=== PATIENT | male | born 1955 | race Caucasian/White ===

== ENCOUNTER 2020-11-01 11:23 | Outpatient (REF) | payer OTHER, SELFPAY ==
[2020-11-01 14:47] LABS: Prostate Specific Antigen 0.99 ng/mL (<0.05-4.0)
== END 2020-11-01 11:24 | disposition home or self-care (01) ==
LOC: HO.WFDLDS 11:23
PROVIDERS: PCP Family Medicine; Visit Provider Urology
DX: N40.1 Benign prostatic hyperplasia with lower urinary tract symptoms (principal); Z12.5 Encounter for screening for malignant neoplasm of prostate
CPT/HCPCS: 36415; 84153

== ENCOUNTER 2020-11-10 07:06 | Outpatient (REF) | payer OTHER, SELFPAY ==
[2020-11-10 12:51] LABS: Alanine Aminotransferase 20 U/L (0-40); Albumin Level 4.4 g/dL (3.5-5.0); Alkaline Phosphatase 59 U/L (39-117); Anion Gap 12 (12-20); Aspartate Amino Transferase 16 U/L (5-37); Blood Urea Nitrogen 15 mg/dL (9-16); Calcium 8.7 mg/dL (8.4-10.2); Carbon Dioxide 29 mmol/L (22-29); Chloride 104 mmol/L (96-108); Cholesterol 141 mg/dL; Estimated Glomerular Filt Rate > 60; Glucose Fasting 151 mg/dL (60-99); HDL Cholesterol 50 mg/dL; LDL Cholesterol Calculated 75 mg/dl; Potassium 4.6 mmol/l (3.3-5.1); Sodium 140 mmol/L (135-145); Total Protein 6.6 g/dL (6.5-8.0); Triglycerides 81 mg/dL
[2020-11-10 13:11] LABS: TSH reflex Free T4 2.79 mIU/mL (0.32-4.0)
[2020-11-10 13:12] LABS: Creatinine Urine 121.62 mg/dL; Microalbumin Urine < 5.0 mg/L
[2020-11-14 15:22] LABS: Testosterone, Total 672 ng/dL (250-1100)
== END 2020-11-10 07:07 | disposition home or self-care (01) ==
LOC: HO.WFDLDS 07:06
PROVIDERS: Visit Provider Family Medicine
DX: Z00.00 Encounter for general adult medical examination without abnormal findings (principal); E11.9 Type 2 diabetes mellitus without complications; I10 Essential (primary) hypertension
CPT/HCPCS: 36415; 80053; 80061; 82043; 84403; 84443

== ENCOUNTER → 2020-12-15 14:08 | Outpatient (BNVA) | payer OTHER, SELFPAY | PROVIDERS: PCP Family Medicine; Visit Provider Nurse Practitioner Family ==

== ENCOUNTER 2021-02-03 07:38 | Day surgery (SDC) | payer OTHER, SELFPAY ==
[2021-01-31 14:15] VITALS: BMI 29.0
[2021-02-03 07:44] VITALS: BP 153/80; PULSE 72; RESP 16; TEMP 36.2; O2SAT 97
[2021-02-03] MEDS: Lactated Ringers 1,000 ML 50 ML IV (08:03)
[2021-02-03 08:07] LABS: Glucose, Whole Blood 131 mg/dL (60-115)
--- NOTE | 2021-02-03 08:22 | HO.ANESPROP2 ---
[facility] Active Problems Active Problems: All Active Problems (Updated 01/31/21 @ 14:13 by Freida Bustillos) Diabetes type 2, controlled (Acute) Essential (primary) hypertension (Acute) Annual physical exam (Acute) Screening for prostate cancer (Acute) Screening for colon cancer (Acute) Difficulty sleeping (Acute) Past Medical History Medical History Diabetes Elevated cholesterol History of benign prostatic hyperplasia HTN (hypertension) Family History Family History Father CVD (cardiovascular disease) Cancer of prostate Mother Diabetes Brother No problems noted. Brother No problems noted. Sister No problems noted. Son No problems noted. Son No problems noted. Maternal Grandmother Diabetes Surgical History Surgical History H/O colonoscopy History of appendectomy History of open reduction and internal fixation (ORIF) procedure Social History Social History Household Members: Spouse Are you a primary rn care manager to a significant other at home: No Do you presently have visiting nurse or other home services: No Alcohol intake: current Alcohol intake frequency: holidays/special occasions only Smoking Status: Never smoker Advance Directives Information Provided: No Meds Allergies Allergy/AdvReac Type Severity Reaction Status Date / Time codeine AdvReac Intermediate Vomitting Verified 01/31/21 14:13 Active Medications: Current Medications Generic Name Dose Route Start Last Admin Trade Name Freq PRN Reason Stop Dose Admin Lactated Ringer's 1,000 mls @ 50 mls/hr 02/02/21 07:30 02/03/21 08:03 Lr IV 50 mls/hr .Q20H INDER Administration Home Medications Medication Instructions Recorded Confirmed Last Taken Type epinephrine 0.3 mg/0.3 mL 0.3 mg IM ONCE PRN 08/02/20 01/31/21 Unknown History injection, auto-injector glipizide 2.5 mg tablet, extended 2.5 mg PO DAILY 08/02/20 01/31/21 Unknown History release 24 hr ibuprofen 800 mg tablet 800 mg PO Q8H PRN 08/02/20 01/31/21 Unknown History lancets 28 gauge #100 ea 08/02/20 Unknown History losartan 25 mg tablet 25 mg PO DAILY 08/02/20 01/31/21 Unknown History pravastatin 20 mg tablet 20 mg PO DAILY 08/02/20 01/31/21 Unknown History valacyclovir 500 mg tablet 500 mg PO DAILY 08/02/20 Unknown History Exam Exam Date and Time: February 03, [id number] Height,Weight and Vital Signs: Height 5 ft 7 in Weight 83.915 kg Last Vital Signs Temp 97.2 F 02/03/21 07:44 Pulse 72 02/03/21 07:44 Resp 16 02/03/21 07:44 BP 153/80 H 02/03/21 07:44 Pulse Ox 97 02/03/21 07:44 Pertinent Lab Results Pertinent Lab Results: Laboratory Tests 02/03/21 07:56 POC Glucose 131 H Airway Mallampati Class: II TM Dist: >3cm Neck ROM: Full
--- NOTE | 2021-02-03 08:30 | P.OP_ITS ---
Operative Note Operative Note Date of Service: 02/03/21 Narrative: Pre-op diagnosis: Colon cancer screening Post-op diagnosis: other (Colon polyps, cecal ulcer, diverticulosis, hemorrhoids) Procedure: COLONOSCOPY TILL CECUM WITH BIOPSIES AND SNARE POLYPECTOMY Consent: Indications for the procedure and potential complications of bleeding, perforation, reaction to medications and missed diagnosis were discussed with the patient and informed consent was obtained. Instrument: Olympus PCF H 190 L variable stiffness pediatric colonoscope Monitoring: Vital signs and clinical assessment, intermittent blood pressure monitoring, continuous EKG monitoring, Pulse oximetry and Carbon Dioxide monitoring were done throughout the procedure. Colon withdrawl time was 18 minutes. Procedure: The patient was placed in the left lateral decubitis position and pre-procedure medications were administered. After a digital rectal examination of the ano-rectum, the video colonoscope was inserted into the rectum and advanced through the colon to the cecum. The colonoscope was slowly withdrawn in a retrograde panoramic fashion and the colon mucosa was carefully examined including a retroflexed view of the rectum. Findings and interventions are described below. Procedure Difficulty: Without difficulty Findings: Terminal Ileum: Not evaluated Cecum: A 3-4 mm diminutive appearing polyp at the appendical orifice removed with the cold biopsy. A 1.5 to 2 cm chronic appearing ulcer in the cecum opposite the ileocecal valve which was biopsied Ascending Colon: Normal Transverse Colon: Normal Descending Colon: Moderate diverticulosis Sigmoid Colon: A 10-12 mm sessile polyp removed with a cold snare. Moderate diverticulosis Rectum: Normal Ano-rectum: Small internal hemorrhoids Colon preparation: Excellent Impression and Post Procedure Diagnosis: Colonoscopy Findings: Two small to medium sized polyps removed A 1.5 to 2 cm chronic appearing ulcer in the cecum opposite the ileocecal valve which was biopsied - likely related to ibuprofen use. Moderate diverticulosis seen in the left colon Small hemorrhoids on retroflexed exam. Plan: Await pathology results Patient has an appointment on 02/28/21 in the GI Clinic with Deanna Alonzo FNP-BC. Repeat Colonoscopy interval based on path results - in 3-5 years if polyps are adenomatous and 10 years if polyps are hyperplastic. Above findings were reviewed with the patient and [colon polyps] and [diverticulosis] handouts were given in the discharge area Surgeon: Tanna Meneses MD Anesthesia: MAC (Zbigniew James CRNA) Lead Quality Technician: Jorge L Timmons Estimated blood loss (mL): 0 Pathology: other (A cecal polyp, B. Cecal ulcer, C. SC polyp x 1) Condition: stable Disposition: PACU
--- NOTE | 2021-02-03 08:30 | MHC.SHP ---
Pre-Procedural Eval Section A The patient is an INPATIENT: No The History & Physical has been completed within 30 days and I have reviewed it.: No Section B Chief Complaint: Screening Details of Present Illness: Colon cancer screening Relevant Family History (Specify if Yes): No Relevant Social History: None Present Medications: see Short Stay Collaborative assessment Medical History: Significant History (DM, Htn) History of Previous Operations: Relevant previous surgery/procedure and date(s) (H/O colonoscopy History of appendectomy History of open reduction and internal fixation (ORIF) procedure) Allergies: Allergies Allergy/AdvReac Type Severity Reaction Status Date / Time codeine AdvReac Intermediate Vomitting Verified 01/31/21 14:13 Review of Systems Sugical H&P ROS: Negative: Constitution, Cardiovascular, Respiratory and Gastrointestinal Exam Surgical H&P Exam: Normal: Heart, Normal: Lungs, Normal: Extremities and Normal: Abdomen Plan Diagnosis/Plan: Unchanged I have reviewed the history and physical and performed a pertinent physical examination on my patient. No changes have occurred unless specified.
[2021-02-03 09:23] VITALS: BP 120/63; PULSE 66; RESP 16; TEMP 36.1; O2SAT 97
[2021-02-03 09:38] VITALS: BP 136/81; PULSE 65; RESP 18; TEMP 36.2; O2SAT 98
== END 2021-02-03 10:50 | disposition home or self-care (01) ==
PROVIDERS: PCP Family Medicine; Visit Provider Internal Medicine Gastroenterology
PROC: 0DJD8ZZ Inspection of Lower Intestinal Tract, Via Natural or Artificial Opening Endoscopic (ICD-10-PCS; CPT 45378; principal; 2021-02-03 08:30)
DX: Z12.11 Encounter for screening for malignant neoplasm of colon (principal); D12.5 Benign neoplasm of sigmoid colon; K63.5 Polyp of colon; K63.3 Ulcer of intestine; K57.30 Diverticulosis of large intestine without perforation or abscess without bleeding; K64.8 Other hemorrhoids; I10 Essential (primary) hypertension; E11.9 Type 2 diabetes mellitus without complications; Z79.84 Long term (current) use of oral hypoglycemic drugs; Z79.899 Other long term (current) drug therapy; Z79.1 Long term (current) use of non-steroidal anti-inflammatories (NSAID)
CPT/HCPCS: 45385; 45380; 82947; 88305

== ENCOUNTER → 2021-02-28 13:32 | Outpatient (BNVA) | payer OTHER, SELFPAY | PROVIDERS: PCP Family Medicine; Visit Provider Nurse Practitioner Family ==

== ENCOUNTER 2021-08-21 18:02 | Outpatient (REF) | payer OTHER, SELFPAY ==
[2021-08-21 18:49] LABS: Influenza A PCR NEGATIVE (Negative); Influenza B PCR NEGATIVE (Negative); Resp Syncy Virus RNA Qual PCR NEGATIVE (Negative); SARS COV2 PCR INHOUSE NEGATIVE (Negative)
== END 2021-08-21 18:03 | disposition home or self-care (01) ==
LOC: HO.LNP 18:02
PROVIDERS: Visit Provider Hospitalist
DX: R59.1 Generalized enlarged lymph nodes (principal); Z20.822 Contact with and (suspected) exposure to COVID-19
CPT/HCPCS: 0241U

== ENCOUNTER 2021-08-22 12:18 | Outpatient (REF) | payer OTHER, SELFPAY ==
[2021-08-22 14:08] LABS: MANUAL DIFF FLAG NO
[2021-08-22 14:19] LABS: Basophils Percent Auto 0.3 % (0-2); Eosinophils Absolute Auto 0.2 X10*3/uL (0.0-0.4); Eosinophils Percent Auto 2.5 % (0-4); Hematocrit 41.6 % (42.0-52.0); Hemoglobin 14.4 g/dl (14.0-18.0); Imm Gran Abs Auto 0.01 X10*3/uL (0.00-0.03); Imm Gran Pct Auto 0.2 % (0.0-0.4); Lymphocytes Percent Auto 34.3 % (20-40); Mean Corpuscular HGB Conc 34.6 g/dl (31.0-36.0); Mean Corpuscular Hemoglobin 31.9 pg (27.0-33.0); Mean Platelet Volume 10.8 fL (9.4-12.4); Monocytes Absolute Auto 0.5 X10*3/uL (0.1-1.2); Monocytes Percent Auto 7.6 % (2-11); Neutrophils Absolute Auto 3.3 x10*3/uL (2.0-8.3); Neutrophils Percent Auto 55.1 % (45-73); Platelet Count 190 X10*3/uL (160-400); Red Blood Count 4.52 X10*6/uL (4.60-5.80); Red Cell Distribution Width 12.2 % (11.0-16.0)
[2021-08-22 15:03] LABS: Erythrocyte Sedimentation Rate 7 MM/HR (0-15)
[2021-08-22 15:17] LABS: Alanine Aminotransferase 24 U/L (0-40); Albumin Level 4.3 g/dL (3.5-5.0); Alkaline Phosphatase 58 U/L (39-117); Anion Gap 9 (12-20); Aspartate Amino Transferase 17 U/L (5-37); Blood Urea Nitrogen 19 mg/dL (9-16); Calcium 8.8 mg/dL (8.4-10.2); Carbon Dioxide 28 mmol/L (22-29); Chloride 107 mmol/L (96-108); Estimated Glomerular Filt Rate > 60; Glucose Random 151 mg/dL (60-115); Potassium 4.3 mmol/L (3.3-5.1); Sodium 140 mmol/L (135-145); Total Protein 6.6 g/dL (6.5-8.0)
[2021-08-24 13:37] LABS: CRP High Sensitivity 2.1 mg/L
== END 2021-08-22 12:19 | disposition home or self-care (01) ==
LOC: HO.WFDLDS 12:18
PROVIDERS: Visit Provider Family Medicine
DX: Z00.00 Encounter for general adult medical examination without abnormal findings (principal); R59.1 Generalized enlarged lymph nodes
CPT/HCPCS: 36415; 80053; 85025; 85652; 86141

== ENCOUNTER 2021-09-04 10:17 | Outpatient (REF) | payer OTHER, SELFPAY ==
[2021-09-04 14:03] LABS: Basophils Percent Auto 0.4 % (0-2); Eosinophils Absolute Auto 0.1 X10*3/uL (0.0-0.4); Eosinophils Percent Auto 1.7 % (0-4); Hematocrit 44.4 % (42.0-52.0); Hemoglobin 15.1 g/dl (14.0-18.0); Imm Gran Abs Auto 0.01 X10*3/uL (0.00-0.03); Imm Gran Pct Auto 0.2 % (0.0-0.4); Lymphocytes Percent Auto 36.7 % (20-40); MANUAL DIFF FLAG NO; Mean Corpuscular Hemoglobin 31.1 pg (27.0-33.0); Mean Corpuscular Volume 91.5 fL (80.0-98.0); Monocytes Absolute Auto 0.5 X10*3/uL (0.1-1.2); Monocytes Percent Auto 9.5 % (2-11); Neutrophils Absolute Auto 2.8 x10*3/uL (2.0-8.3); Neutrophils Percent Auto 51.5 % (45-73); Platelet Count 195 X10*3/uL (160-400); Red Blood Count 4.85 X10*6/uL (4.60-5.80); Red Cell Distribution Width 12.2 % (11.0-16.0); White Blood Count 5.5 X10*3/uL (4.8-10.8)
== END 2021-09-04 10:18 | disposition home or self-care (01) ==
LOC: HO.WFDLDS 10:17
PROVIDERS: Visit Provider Family Medicine
DX: Z00.00 Encounter for general adult medical examination without abnormal findings (principal); R59.1 Generalized enlarged lymph nodes
CPT/HCPCS: 36415; 85025

== ENCOUNTER 2021-11-10 07:16 | Outpatient (REF) | payer OTHER, SELFPAY ==
[2021-11-10 10:54] LABS: MANUAL DIFF FLAG NO
[2021-11-10 10:55] LABS: Basophils Percent Auto 0.4 % (0-2); Eosinophils Absolute Auto 0.1 X10*3/uL (0.0-0.4); Eosinophils Percent Auto 1.5 % (0-4); Hematocrit 40.8 % (42.0-52.0); Imm Gran Abs Auto 0.01 X10*3/uL (0.00-0.03); Imm Gran Pct Auto 0.2 % (0.0-0.4); Lymphocytes Absolute Auto 1.4 X10*3/uL (1.2-4.9); Lymphocytes Percent Auto 30.2 % (20-40); Mean Corpuscular HGB Conc 34.3 g/dl (31.0-36.0); Mean Corpuscular Hemoglobin 31.7 pg (27.0-33.0); Mean Corpuscular Volume 92.5 fL (80.0-98.0); Mean Platelet Volume 11.1 fL (9.4-12.4); Monocytes Absolute Auto 0.4 X10*3/uL (0.1-1.2); Neutrophils Absolute Auto 2.8 x10*3/uL (2.0-8.3); Neutrophils Percent Auto 59.7 % (45-73); Platelet Count 158 X10*3/uL (160-400); Red Blood Count 4.41 X10*6/uL (4.60-5.80); Red Cell Distribution Width 12.3 % (11.0-16.0); White Blood Count 4.6 X10*3/uL (4.8-10.8)
[2021-11-10 11:10] LABS: Alanine Aminotransferase 20 U/L (0-40); Albumin Level 4.1 g/dL (3.5-5.0); Alkaline Phosphatase 51 U/L (39-117); Anion Gap 8 (12-20); Aspartate Amino Transferase 16 U/L (5-37); Bilirubin Total 1.7 mg/dL (0.0-1.0); Blood Urea Nitrogen 12 mg/dL (9-16); Carbon Dioxide 30 mmol/L (22-29); Chloride 107 mmol/L (96-108); Cholesterol 145 mg/dL; Estimated Glomerular Filt Rate > 60; Glucose Fasting 131 mg/dL (60-99); HDL Cholesterol 48 mg/dL; LDL Cholesterol Calculated 85 mg/dl; Potassium 4.3 mmol/L (3.3-5.1); Sodium 141 mmol/L (135-145); Total Protein 6.4 g/dL (6.5-8.0); Triglycerides 62 mg/dL
[2021-11-10 11:15] LABS: Appearance Urine TURBID; Color Urine YELLOW; Glucose Urine UA NEG (NEG); Leukocyte Esterase Urine NEG (NEG); Nitrite Urine NEG (NEG); Specific Gravity - Urine >= 1.030 (1.005-1.025); Urine Blood NEG (NEG); Urine Ketones NEG (NEG); Urine Protein NEG (NEG-TRACE)
[2021-11-10 11:34] LABS: Creatinine Urine 217.09 mg/dL
[2021-11-10 12:35] LABS: Estimated Average Glucose 166 mg/dL; Hemoglobin A1c % 7.4 %
== END 2021-11-10 07:17 | disposition home or self-care (01) ==
LOC: HO.WFDLDS 07:16
PROVIDERS: Hospitalist; Visit Provider Family Medicine
DX: Z00.00 Encounter for general adult medical examination without abnormal findings (principal); E11.9 Type 2 diabetes mellitus without complications; I10 Essential (primary) hypertension
CPT/HCPCS: 36415; 80053; 80061; 81003; 82043; 83036; 84443; 85025

== ENCOUNTER 2021-11-30 07:13 | Outpatient (REF) | payer OTHER, SELFPAY ==
[2021-11-30 10:53] LABS: MANUAL DIFF FLAG NO
[2021-11-30 11:02] LABS: Basophils Percent Auto 0.2 % (0-2); Eosinophils Absolute Auto 0.1 X10*3/uL (0.0-0.4); Hematocrit 44.2 % (42.0-52.0); Hemoglobin 15.2 g/dl (14.0-18.0); Imm Gran Abs Auto 0.01 X10*3/uL (0.00-0.03); Imm Gran Pct Auto 0.2 % (0.0-0.4); Immature Retic Fraction 6.2 % (2.3-13.4); Lymphocytes Absolute Auto 1.7 X10*3/uL (1.2-4.9); Lymphocytes Percent Auto 33.4 % (20-40); Mean Corpuscular HGB Conc 34.4 g/dl (31.0-36.0); Mean Corpuscular Volume 93.1 fL (80.0-98.0); Monocytes Absolute Auto 0.5 X10*3/uL (0.1-1.2); Monocytes Percent Auto 10.2 % (2-11); Neutrophils Absolute Auto 2.8 x10*3/uL (2.0-8.3); Platelet Count 201 X10*3/uL (160-400); Red Blood Count 4.75 X10*6/uL (4.60-5.80); Red Cell Distribution Width 12.6 % (11.0-16.0); Retic HGB Equivalent 34.4 pg (30.0-35.0); Reticulocyte Percent 1.1 % (0.5-1.8); White Blood Count 5.1 X10*3/uL (4.8-10.8)
[2021-11-30 11:13] LABS: Alanine Aminotransferase 18 U/L (0-40); Albumin Level 4.2 g/dL (3.5-5.0); Alkaline Phosphatase 55 U/L (39-117); Anion Gap 10 (12-20); Aspartate Amino Transferase 15 U/L (5-37); Bilirubin Total 1.7 mg/dL (0.0-1.0); Blood Urea Nitrogen 13 mg/dL (9-16); Calcium 9.4 mg/dL (8.4-10.2); Carbon Dioxide 29 mmol/L (22-29); Chloride 104 mmol/L (96-108); Estimated Glomerular Filt Rate > 60; Glucose Random 143 mg/dL (60-115); Iron 116 mcg/dL (45-160); Potassium 4.6 mmol/L (3.3-5.1); Sodium 138 mmol/L (135-145); Total Protein 6.7 g/dL (6.5-8.0)
[2021-11-30 11:26] LABS: Percent Iron Saturation 30 % (15-50); Total Iron Binding Capacity 387 mcg/dL (228-428); Unsaturated Iron Binding 271 ug/dL
[2021-11-30 11:33] LABS: Ferritin 98 ng/mL (20-250)
[2021-11-30 12:13] LABS: Erythrocyte Sedimentation Rate 5 MM/HR (0-15)
[2021-12-02 13:32] LABS: CRP High Sensitivity 1.6 mg/L
== END 2021-11-30 07:14 | disposition home or self-care (01) ==
LOC: HO.WFDLDS 07:13
PROVIDERS: Visit Provider Family Medicine
DX: Z00.00 Encounter for general adult medical examination without abnormal findings (principal); D64.9 Anemia, unspecified; M25.561 Pain in right knee
CPT/HCPCS: 36415; 80053; 82728; 83540; 85025; 85045; 85652; 86141

== ENCOUNTER 2022-04-10 08:39 | Outpatient (REF) | payer OTHER, SELFPAY ==
--- NOTE | ~2022-04-10 | XR_ITS ---
EXAMINATION: XR HAND, LEFT CLINICAL INFORMATION: Pain and swelling; history of arthritis. COMPARISON: None TECHNIQUE: PA, lateral, and oblique views of the left hand. FINDINGS: There is mild bony demineralization. There is mild to moderate osteoarthritic change of the interphalangeal joint of the thumb, and of the second and third distal interphalangeal joints. There is mild to moderate osteoarthritic change of the first through third metacarpophalangeal joints, with peripheral osteophyte formation. There is mild osteoarthritic change of the first carpometacarpal joint. The proximal and distal carpal rows are intact. A small accessory ossicle is seen adjacent to the radial styloid. The ulnar styloid is intact. No focal bone erosion or periosteal thickening is seen. There is no focal soft tissue swelling. There are 2 adjacent approximately 0.5-1 mm linear foreign bodies seen in the medial soft tissues of the thumb, adjacent to the interphalangeal joint. XR/XR hand LT min 3V IMPRESSION: 1. There are osteoarthritic changes of the left hand and wrist, as detailed. 2. No fracture or dislocation is seen. 3. No focal bone erosion or periosteal thickening is noted. 4. There are tiny radiopaque foreign bodies in the soft tissues of the thumb, for which clinical correlation is recommended.
[2022-04-10 11:42] LABS: MANUAL DIFF FLAG NO
[2022-04-10 12:03] LABS: Basophils Percent Auto 0.4 % (0-2); Eosinophils Absolute Auto 0.1 X10*3/uL (0.0-0.4); Eosinophils Percent Auto 1.3 % (0-4); Hematocrit 43.5 % (42.0-52.0); Hemoglobin 14.4 g/dl (14.0-18.0); Lymphocytes Absolute Auto 1.4 X10*3/uL (1.2-4.9); Mean Corpuscular HGB Conc 33.1 g/dl (31.0-36.0); Mean Corpuscular Volume 93.5 fL (80.0-98.0); Monocytes Absolute Auto 0.5 X10*3/uL (0.1-1.2); Monocytes Percent Auto 8.6 % (2-11); Neutrophils Absolute Auto 3.3 x10*3/uL (2.0-8.3); Neutrophils Percent Auto 62.7 % (45-73); Platelet Count 162 X10*3/uL (160-400); Red Blood Count 4.65 X10*6/uL (4.60-5.80); Red Cell Distribution Width 12.4 % (11.0-16.0); White Blood Count 5.2 X10*3/uL (4.8-10.8)
[2022-04-10 12:34] LABS: Anion Gap 10 (12-20); Blood Urea Nitrogen 18 mg/dL (9-16); C Reactive Protein 0.57 mg/dL (< or = 0.50); Calcium 9.1 mg/dL (8.4-10.2); Carbon Dioxide 28 mmol/L (22-29); Chloride 109 mmol/L (96-108); Estimated Glomerular Filt Rate > 60; Glucose Random 160 mg/dL (60-115); Potassium 4.8 mmol/L (3.3-5.1); Sodium 142 mmol/L (135-145)
[2022-04-10 14:58] LABS: Erythrocyte Sedimentation Rate 6 MM/HR (0-15)
== END 2022-04-10 08:40 | disposition home or self-care (01) ==
LOC: HO.HMGCLDS 08:39
PROVIDERS: PCP Family Medicine; Visit Provider Nurse Practitioner Family
DX: M79.89 Other specified soft tissue disorders (principal)
CPT/HCPCS: 36415; 73130; 80048; 85025; 85652; 86140

== ENCOUNTER 2022-05-03 07:08 | Outpatient (REF) | payer OTHER, SELFPAY ==
[2022-05-03 11:43] LABS: Prostate Specific Antigen 1.03 ng/mL (<0.05-4.0)
== END 2022-05-03 07:09 | disposition home or self-care (01) ==
LOC: HO.WFDLDS 07:08
PROVIDERS: Visit Provider Physician Assistant Medical
DX: Z12.5 Encounter for screening for malignant neoplasm of prostate (principal); N40.1 Benign prostatic hyperplasia with lower urinary tract symptoms
CPT/HCPCS: 36415; 84153

== ENCOUNTER 2022-11-30 08:22 | Outpatient (REF) | payer OTHER, SELFPAY ==
[2022-11-30 11:43] LABS: MANUAL DIFF FLAG NO
[2022-11-30 11:46] LABS: Appearance Urine Clear; Color Urine Dark Yellow; Glucose Urine UA Negative (Negative); Leukocyte Esterase Urine Trace (Negative); Nitrite Urine Negative (Negative); PH 5.5 (5.0-9.0); Specific Gravity - Urine 1.025 (1.005-1.025); UMIC TRIGGER UA YES; Urine Blood Negative (Negative); Urine Ketones Trace mg/dL (Negative); Urine Protein Negative (Neg-Trace)
[2022-11-30 11:53] LABS: Bacteria Urine None Seen (None Seen); Hyaline Casts Urine 0-2 /LPF (0-2); RBC Urine 0-2 /HPF (0-2); Squamous Epithelial Cell Urine 0-2 /HPF (0-2); WBC Urine 0-5 /HPF (0-5)
[2022-11-30 11:59] LABS: Basophils Percent Auto 0.7 % (0-2); Eosinophils Absolute Auto 0.1 X10*3/uL (0.0-0.4); Hematocrit 44.7 % (42.0-52.0); Hemoglobin 15.3 g/dl (14.0-18.0); Imm Gran Abs Auto 0.01 X10*3/uL (0.00-0.03); Imm Gran Pct Auto 0.2 % (0.0-0.4); Lymphocytes Absolute Auto 1.8 X10*3/uL (1.2-4.9); Lymphocytes Percent Auto 39.1 % (20-40); Mean Corpuscular HGB Conc 34.2 g/dl (31.0-36.0); Mean Corpuscular Hemoglobin 31.8 pg (27.0-33.0); Mean Corpuscular Volume 92.9 fL (80.0-98.0); Mean Platelet Volume 11.1 fL (9.4-12.4); Monocytes Absolute Auto 0.4 X10*3/uL (0.1-1.2); Monocytes Percent Auto 8.1 % (2-11); Neutrophils Absolute Auto 2.2 x10*3/uL (2.0-8.3); Neutrophils Percent Auto 49.9 % (45-73); Platelet Count 201 X10*3/uL (160-400); Red Blood Count 4.81 X10*6/uL (4.60-5.80); Red Cell Distribution Width 12.1 % (11.0-16.0); White Blood Count 4.5 X10*3/uL (4.8-10.8)
[2022-11-30 12:39] LABS: Alanine Aminotransferase 18 U/L (0-40); Albumin Level 4.2 g/dL (3.5-5.0); Alkaline Phosphatase 54 U/L (39-117); Anion Gap 14 (12-20); Aspartate Amino Transferase 13 U/L (5-37); Bilirubin Total 1.3 mg/dL (0.0-1.0); Blood Urea Nitrogen 20 mg/dL (9-16); Calcium 9.3 mg/dL (8.4-10.2); Carbon Dioxide 27 mmol/L (22-29); Chloride 104 mmol/L (96-108); Cholesterol 161 mg/dL; Creatinine Urine 231.85 mg/dL; Estimated Glomerular Filt Rate > 60; Glucose Fasting 155 mg/dL (60-99); HDL Cholesterol 48 mg/dL; LDL Cholesterol Calculated 95 mg/dl; Microalbum/Creatinine Ratio Ur 5.6 ug/mg cr; Potassium 4.8 mmol/L (3.3-5.1); Sodium 140 mmol/L (135-145); TSH reflex Free T4 2.62 uIU/mL (0.32-4.0); Total Protein 6.6 g/dL (6.5-8.0); Triglycerides 92 mg/dL
== END 2022-11-30 08:23 | disposition home or self-care (01) ==
LOC: HO.WFDLDS 08:22
PROVIDERS: Visit Provider Family Medicine
DX: Z00.00 Encounter for general adult medical examination without abnormal findings (principal); I10 Essential (primary) hypertension
CPT/HCPCS: 36415; 80053; 80061; 81001; 82043; 84443; 85025

== ENCOUNTER 2022-12-14 11:07 | Outpatient (REF) | payer OTHER, SELFPAY ==
--- NOTE | ~2022-12-14 | XR_ITS ---
EXAMINATION: XR KNEES, STANDING AP BILATERAL XR KNEE, RIGHT CLINICAL INFORMATION: Knee pain COMPARISON: Outside right knee MRI 12/04/2022 ([facility]). TECHNIQUE: Bilateral standing AP view of the knees is performed. The right knee is also imaged in lateral and axial patella views. FINDINGS: Right: There is tricompartment osteoarthritis, greatest medial knee joint compartment with joint narrowing and mild subchondral sclerosis. No destructive process or erosive changes. There is small to moderate suprapatellar effusion. Spurring present from posterior superior lateral patella. No patellar lateralization or tilting. Left: No definite knee joint compartment narrowing. No or erosive change or chondrocalcinosis. No destructive process. XR/XR knee standing BI IMPRESSION: Right: Tricompartment osteoarthritis, greatest medial compartment. Small to moderate suprapatellar effusion. Left: No definite knee joint compartment narrowing.
--- NOTE | ~2022-12-14 | XR_ITS ---
EXAMINATION: XR KNEES, STANDING AP BILATERAL XR KNEE, RIGHT CLINICAL INFORMATION: Knee pain COMPARISON: Outside right knee MRI 12/04/2022 ([facility]). TECHNIQUE: Bilateral standing AP view of the knees is performed. The right knee is also imaged in lateral and axial patella views. FINDINGS: Right: There is tricompartment osteoarthritis, greatest medial knee joint compartment with joint narrowing and mild subchondral sclerosis. No destructive process or erosive changes. There is small to moderate suprapatellar effusion. Spurring present from posterior superior lateral patella. No patellar lateralization or tilting. Left: No definite knee joint compartment narrowing. No or erosive change or chondrocalcinosis. No destructive process. XR/XR knee RT 2V IMPRESSION: Right: Tricompartment osteoarthritis, greatest medial compartment. Small to moderate suprapatellar effusion. Left: No definite knee joint compartment narrowing.
== END 2022-12-14 11:08 | disposition home or self-care (01) ==
LOC: HO.HOSX 11:07
PROVIDERS: PCP Family Medicine; Visit Provider Orthopaedic Surgery
DX: M17.11 Unilateral primary osteoarthritis, right knee (principal); E11.9 Type 2 diabetes mellitus without complications
CPT/HCPCS: 20610; 73560; 73565; 99202; J1100

== ENCOUNTER 2023-01-09 09:00 | Outpatient (RCR) | payer OTHER, SELFPAY ==
--- NOTE | 2022-12-19 11:30 | MHC.PT.EP ---
[facility] [place] Office [place] Office [place] Office [address] Belle Gonzalez [address] [phone] F: [phone] F: [phone] F: [phone] F: [phone] Physical Therapy Plan of Care Date of Evaluation: Date of Surgery: NA Diagnosis: KNEE EFFUSION R Assessment: Pt IS 67 YO M REFERRED TO PT FROM DR MOE S/P R KNEE INJURY AT WORK ON 11/26/22 (TWIST OF KNEE WHILE TRYING TO MOVE HEAVY WHEEL) WITH IMMEDIATE PAIN. Pt WITH HX OF R KNEE MENISCECTOMY ABOUT 12 YRS AGO AND R TIB/FIB FX (REPORTS NO SURGERY, MANIPULATION AND CASTING). REPORTS NO SIGIF PT WITH THESE. REPORTS RELIEF FROM RECENT CORTISONE INJECTION FROM DR MOE. PRESENTS WITH LIMITED R KNEE ROM (AND R ANKLE ROM) AND DECREASED R LE STRENGTH WITH PAIN REPORTED AND LIMITED ADLS (TROUBLE PUTTING SOCKS ON CLIMBING STAIRS). 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 INCREASED AWARENESS KNEE CARE 2. INCREASED R KNEE FLEX 10 DEGREES 3. I KNEE TAPING IF INDICATED 4. IMPROVED STAIR NEGOTIATION AND TRANSF OUT OF TRUCK (Pt TO REPORT LESS STIFFNESS/PAIN) [facility]ci Goals: 1. I HEP WITH DC EX PLAN 2. RTW 3. IMPROVED LEFI 4. DECREASED R KNEE PAIN AT LEAST 50% WITH ADLS Treatment Plan: Modalities to reduce pain, spasms and effusion. Manual therapy to restore motion and function. Therapeutic exercise to improve strength and flexibility. Neuromuscular re-education for posture and balance. Therapeutic activities to return to functional activities of daily living. Electronically signed by: ARIADNA COREAS PT Please sign and return to therapist. Thank you for your referral.
--- NOTE | 2023-04-26 14:55 | MHC.PT.DC ---
[facility] [place] Office [place] Office [place] Office [address] Belle Gonzalez [address] [phone] F: [phone] F: [phone] F: [phone] F: [phone] Physical Therapy Discharge Report Diagnosis: KNEE EFFUSION R Date of Surgery: NA Date of Evaluation: 12/19/22 Date of Discharge: 04/26/23 Treatments to Date: 6 Cancellations to Date: No Shows to Date: Discharge Status: Independent with HEP Patient Elected to Stop Discharge Summary: Pt SEEN FOR INIT EVAL AND 5 VISITS. LAST SEEN ON 01/09/23. PER ASSESSMENT FROM THAT DAY HAS ONE MORE APPT ON SATURDAY THEN FU WITH ORTHO NEXT SATURDAY. AWAIT FURTHER INSTRUCTIONS FROM ORTHO Pt SAW ORTHO ON 04/05/23 AND TKR WAS RECOMMENDED. WILL DC THIS CHART AT THIS TIME Electronically signed by: ARIADNA COREAS PT Please sign and return to therapist. Thank you for your referral.
== END 2023-04-26 14:55 | disposition home or self-care (01) ==
LOC: HO.PTWFD 09:00
PROVIDERS: Visit Provider Orthopaedic Surgery
DX: M17.11 Unilateral primary osteoarthritis, right knee (principal); M25.461 Effusion, right knee
CPT/HCPCS: 97110; 97140; 97162; 97530; 97535

== ENCOUNTER → 2023-01-18 09:24 | Outpatient (BNVA) | payer OTHER, SELFPAY | PROVIDERS: PCP Family Medicine; Visit Provider Orthopaedic Surgery | DX: M17.11 Unilateral primary osteoarthritis, right knee (principal) | CPT/HCPCS: 99212 ==

== ENCOUNTER → 2023-02-22 09:23 | Outpatient (BNVA) | payer OTHER, SELFPAY | PROVIDERS: PCP Family Medicine; Visit Provider Orthopaedic Surgery | DX: M17.11 Unilateral primary osteoarthritis, right knee (principal); E11.9 Type 2 diabetes mellitus without complications | CPT/HCPCS: 20610; 99212; J1100 ==

== ENCOUNTER 2023-03-02 07:05 | Outpatient (REF) | payer OTHER, SELFPAY ==
[2023-03-02 07:14] LABS: MANUAL DIFF FLAG NO
[2023-03-02 07:27] LABS: Basophils Percent Auto 0.5 % (0-2); Eosinophils Absolute Auto 0.1 X10*3/uL (0.0-0.4); Eosinophils Percent Auto 1.7 % (0-4); Hematocrit 42.7 % (42.0-52.0); Imm Gran Abs Auto 0.01 X10*3/uL (0.00-0.03); Imm Gran Pct Auto 0.2 % (0.0-0.4); Lymphocytes Absolute Auto 1.5 X10*3/uL (1.2-4.9); Lymphocytes Percent Auto 36.8 % (20-40); Mean Corpuscular HGB Conc 35.1 g/dl (31.0-36.0); Mean Corpuscular Hemoglobin 32.3 pg (27.0-33.0); Mean Platelet Volume 10.2 fL (9.4-12.4); Monocytes Absolute Auto 0.4 X10*3/uL (0.1-1.2); Monocytes Percent Auto 9.1 % (2-11); Neutrophils Absolute Auto 2.1 x10*3/uL (2.0-8.3); Neutrophils Percent Auto 51.7 % (45-73); Platelet Count 186 X10*3/uL (160-400); Red Blood Count 4.64 X10*6/uL (4.60-5.80); Red Cell Distribution Width 12.4 % (11.0-16.0); White Blood Count 4.1 X10*3/uL (4.8-10.8)
[2023-03-02 08:04] LABS: Alanine Aminotransferase 18 U/L (0-40); Albumin Level 4.3 g/dL (3.5-5.0); Alkaline Phosphatase 52 U/L (39-117); Anion Gap 10 (12-20); Aspartate Amino Transferase 13 U/L (5-37); Bilirubin Total 1.7 mg/dL (0.0-1.0); Blood Urea Nitrogen 14 mg/dL (9-16); Calcium 9.3 mg/dL (8.4-10.2); Carbon Dioxide 29 mmol/L (22-29); Chloride 108 mmol/L (96-108); Cholesterol 201 mg/dL; Estimated Glomerular Filt Rate > 60; Glucose Fasting 160 mg/dL (60-99); HDL Cholesterol 48 mg/dL; LDL Cholesterol Calculated 127 mg/dl; Potassium 4.6 mmol/L (3.3-5.1); Sodium 142 mmol/L (135-145); Total Protein 6.6 g/dL (6.5-8.0); Triglycerides 130 mg/dL
[2023-03-02 08:21] LABS: Appearance Urine Clear; Color Urine Yellow; Glucose Urine UA 100 mg/dL (Negative); Leukocyte Esterase Urine Negative (Negative); Nitrite Urine Negative (Negative); PH 5.5 (5.0-9.0); Specific Gravity - Urine 1.025 (1.005-1.025); Urine Blood Negative (Negative); Urine Ketones Negative (Negative); Urine Protein Negative (Neg-Trace)
[2023-03-02 08:38] LABS: Prostate Specific Antigen Scr 1.04 ng/mL (<0.05-4.0); TSH reflex Free T4 1.29 uIU/mL (0.32-4.0)
[2023-03-02 08:55] LABS: Creatinine Urine 199.13 mg/dL; Microalbum/Creatinine Ratio Ur 3.5 ug/mg cr
== END 2023-03-02 07:06 | disposition home or self-care (01) ==
LOC: HO.LAB 07:05
PROVIDERS: PCP Family Medicine; Visit Provider Family Medicine
DX: Z00.00 Encounter for general adult medical examination without abnormal findings (principal); I10 Essential (primary) hypertension; Z12.5 Encounter for screening for malignant neoplasm of prostate
CPT/HCPCS: 36415; 80053; 80061; 81003; 82043; 84153; 84443; 85025

== ENCOUNTER → 2023-04-05 10:15 | Outpatient (BNVA) | payer OTHER, SELFPAY | PROVIDERS: PCP Family Medicine; Visit Provider Orthopaedic Surgery | DX: M17.11 Unilateral primary osteoarthritis, right knee (principal); E11.9 Type 2 diabetes mellitus without complications | CPT/HCPCS: 99212 ==

== ENCOUNTER 2023-05-02 08:03 | Outpatient (AMB) | payer MEDICARE, SELFPAY ==
--- NOTE | 2023-05-02 08:01 | MHC.PC.OV ---
Vital Signs 05/02/23 08:08 Height 5 ft 7 in Weight 183 lb BMI 28.7 BP 128/78 Blood Pressure Location Rt brachial Position Sitting Respiration 14 Pulse 66 Pulse Source Pulse Oximeter Temp 98.4 F Temp Source Temporal Artery Scan Pulse Oximetry (%) 98 Oxygen Delivery Method Room Air Intake Visit Reasons: f/u diabetes, hyperlipidemia and hypertension Intake Note: Patient is here to follow up with diabetic management, hyperlipidemia, and hypertension. Patient had labs drawn on 03/02/23, patient had labs drawn today prior to this appointment. A1C last completed 02/18/23 with a result of 7.4% and patient's last diabetic eye exam completed on 04/19/23. Patient's states his blood sugars are more stable at home. Upholstery Sewer Required: No Accompanied by: Spouse Allergies codeine Adverse Reaction (Intermediate, Verified 05/02/23 08:05) Vomitting Medication List - Last Reconciled 05/02/23 by John Gonzalse MD epinephrine (EpiPen 2-Mo) 0.3 mg (0.3 mL) IM Q4H PRN 30 days finasteride 5 mg PO DAILY 90 days gabapentin 600 mg PO BEDTIME 30 days glipizide ER 10 mg PO DAILY 90 days hydrochlorothiazide 12.5 mg PO QAM 30 days ibuprofen 800 mg PO Q8H PRN 30 days losartan 50 mg (2 x 25 mg) PO DAILY 90 days pravastatin 20 mg PO DAILY tamsulosin 0.4 mg PO DAILY 90 days valacyclovir 500 mg PO DAILY 90 days Tobacco use date assessed: 12/03/22 Fall risk assessment: No Falls in past year Last assessed Fall Risk: 05/02/23 Dental Screening Dental Screen Date: 05/02/23 Did you have a dental visit in the last 12 months?: Yes Did you have a dental problem in the last 6 months where you did not have access to dental care?: No Was dental information given to patient?: Patient has dentist HPI f/u diabetes, hyperlipidemia and hypertension HPI Details 67 y/o male presents to f/u diabetes, hyperlipidemia and hypertension. No recent labs to review. Recent diabetic eye exam showed no diabetic retinopathy. Blood pressure today is 128/78. He is on losartan 50mg, hydrochlorothiazide 12.5mg. Blood sugars at home have been improving. He reports he continues to get good exercise. They report poison stacia. He reports he is getting a full knee replacement [facility] Medical History Diabetes Diverticulosis Elevated cholesterol History of benign prostatic hyperplasia HTN (hypertension) Tubular adenoma Surgical History H/O colonoscopy History of appendectomy History of open reduction and internal fixation (ORIF) procedure Family History Father CVD (cardiovascular disease) Cancer of prostate Mother Diabetes Brother No problems noted. Brother No problems noted. Sister No problems noted. Son No problems noted. Son No problems noted. 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 1. Little interest or pleasure in doing things: several days 2. Feeling down, depressed, or hopeless: several days 3. Trouble falling or staying asleep, or sleeping too much: more than half the days 4. Feeling tired or having little energy: not at all 5. Poor appetite or overeating: not at all 6. Feeling bad about yourself - or that you are a failure or have let yourself or your family down: not at all 7. Trouble concentrating on things, such as reading the newspaper or watching television: several days 8. Moving or speaking so slowly that other people could have noticed. Or the opposite - being so fidgety or restless that you have been moving around a lot more than usual: not at all 9. Thoughts that you would be better off or of hurting yourself in some way: not at all Total score: 5 Source: Developed by Drs. Nik Hills, Janelle Dang, Danny Romo and colleagues, with an educational tiffanie from [employer]. Thrive Questionnaire Date Thrive assessed: 09/04/22 IVETT-7 AMB Questionnaire IVETT-7 Date IVETT - 7 assessed: 05/02/23 Feeling nervous, anxious, or on edge: 1 = Several days Not being able to stop or control worryin = Several days Worrying too much about different things: 2 = More than half the days Trouble relaxin = More than half the days Being so restless that it is hard to sit still: 2 = More than half the days Becoming easily annoyed or irritable: 2 = More than half the days Feeling afraid as if something awful might happen: 0 = Not at all Total IVETT-7 score (0-4 normal; 5-9 mild; 10-14 moderate; 15-21 severe): 10 Source: Developed by Drs. Nik Hills, Janelle Dang, Danny Romo and colleagues, with an educational tiffanie from [employer]. Review of Systems Const Denies chills, Denies fatigue, Denies fever(s), Denies headache(s) and Denies weakness ENT Denies dizziness and Denies headache(s) Card Denies chest pain, Denies lightheadedness, Denies dyspnea and Denies other (Palpitations) Resp Denies cough, Denies dyspnea, Denies wheezing and Denies other ( shortness of breath) Musc Denies numbness and Denies tingling Neuro Denies dizziness, Denies headache(s), Denies numbness, Denies tingling, Denies paresthesias and Denies weakness Psych Denies anxiety and Denies depression Endo Denies fatigue Aller/Immun Denies wheezing Physical exam (Primary Care) Vital Signs: Last Vital Signs Temp 98.4 F 05/02/23 08:08 Pulse 66 05/02/23 08:08 Resp 14 05/02/23 08:08 BP 128/78 05/02/23 08:08 Pulse Ox 98 05/02/23 08:08 Oxygen Delivery Method Room Air 05/02/23 08:08 BMI result Body Mass Index 28.7 Tobacco/Smoking Status: Tobacco use Status Tobacco use date assessed 12/03/22 05/02/23 08:03 Patient Tobacco Use Status Never used Tobacco 05/02/23 08:03 e-Cigarette/Vaping Use Never Used 05/02/23 08:03 PHQ-9: PHQ-9 Score PHQ-9: Total score 5 05/02/23 08:46 Thrive Assessment: Date of Thrive Assessment Date Thrive assessed 09/04/22 05/02/23 08:03 Const General: no acute distress and well developed Nutritional Appearance: well nourished Orientation/consciousness: patient oriented x3 HENMT Head: Yes normocephalic and Yes atraumatic Eyes General: appearance normal, both eyes and all related structures Pupils: Equal, round and reactive pupils present EOM: EOMs intact bilaterally Resp Effort & Inspection: normal respiratory effort Auscultation: clear to auscultation bilaterally Cardio Rate: regular rate Rhythm: regular rhythm Heart sounds: S1 normal heart sound present, S2 normal heart sound present, no gallops, no murmurs and no rubs Neuro General: patient oriented x3 and gait normal Cranial nerves: Yes Equal, round and reactive pupils present Psych Affect: normal affect Assessment and Plan Assessment & Plan (1) Diabetes type 2, controlled: Code(s): E11.9 - Type 2 diabetes mellitus without complications Plan: Last A1c was high. Goal is less than 7.0% He has been working on diet and getting regular exercise as tolerated. Blood sugars have been much better controlled at home No change to his diabetic regimen today. He will be due for an A1c again in May and can come in for a nurse visit for that Recent eye exam showed no diabetic retinopathy (2) Essential (primary) hypertension: Code(s): I10 - Essential (primary) hypertension Plan: Blood pressure is controlled. Goal is less than 140/90 Continue current medication regimen (3) Right knee pain: Code(s): M25.561 - Pain in right knee Plan: Ongoing right knee pain with osteoarthritis and recent soft tissue injury/twist He has seen Dr. Cardoso. He is now scheduled for right knee total replacement in July. Up with Ortho as recommended (4) Poison stacia: Code(s): L23.7 - Allergic contact dermatitis due to plants, except food Plan: Using a calamine spray Will give him a script for betamethasone that he can use b.i.d. (5) Elevated cholesterol: Code(s): E78.00 - Pure hypercholesterolemia, unspecified Plan: Has been working on a diet lower in saturated fats and cholesterol Exercising as tolerated He has gotten his labs drawn this morning. I will call him this afternoon with his results Medications: New betamethasone valerate 0.1% 1 appl topical BID 14 days PRN 45 grams 0RF skin irritation gabapentin 300 mg PO BEDTIME 30 days 30 caps 3RF Discontinued gabapentin Discontinued Reason: Doctor's Order 600 mg PO BEDTIME 30 days 30 tabs 0RF Coding Level of Care Code Est Pt Level 4 (24407) Diagnoses Diabetes type 2, controlled E11.9 Essential (primary) hypertension I10 Right knee pain M25.561 Poison stacia L23.7 Elevated cholesterol E78.00
[2023-05-02 08:08] VITALS: BP 128/78; PULSE 66; RESP 14; TEMP 36.9; O2SAT 98; BMI 28.7
== END 2023-05-02 09:19 | disposition home or self-care (01) ==
PROVIDERS: PCP Family Medicine; Visit Provider Family Medicine
DX: E11.9 Type 2 diabetes mellitus without complications (principal); I10 Essential (primary) hypertension; M25.561 Pain in right knee; L23.7 Allergic contact dermatitis due to plants, except food; E78.00 Pure hypercholesterolemia, unspecified
CPT/HCPCS: 99214

== ENCOUNTER 2023-05-02 08:08 | Outpatient (REF) | payer OTHER, SELFPAY ==
[2023-05-02 14:15] LABS: Alanine Aminotransferase 18 U/L (0-40); Albumin Level 4.3 g/dL (3.5-5.0); Alkaline Phosphatase 48 U/L (39-117); Anion Gap 12 (12-20); Aspartate Amino Transferase 14 U/L (5-37); Bilirubin Total 1.1 mg/dL (0.0-1.0); Blood Urea Nitrogen 15 mg/dL (9-16); Calcium 9.5 mg/dL (8.4-10.2); Carbon Dioxide 24 mmol/L (22-29); Chloride 107 mmol/L (96-108); Cholesterol 195 mg/dL; Estimated Glomerular Filt Rate > 60; Glucose Random 144 mg/dL (60-115); HDL Cholesterol 48 mg/dL; LDL Cholesterol Calculated 120 mg/dl; Potassium 4.2 mmol/L (3.3-5.1); Sodium 139 mmol/L (135-145); Triglycerides 139 mg/dL
[2023-05-04 13:29] LABS: LDL Cholesterol Direct 132 mg/dL (<100)
== END 2023-05-02 08:09 | disposition home or self-care (01) ==
LOC: HO.WFDLDS 08:08
PROVIDERS: Visit Provider Family Medicine
DX: Z00.00 Encounter for general adult medical examination without abnormal findings (principal); E78.00 Pure hypercholesterolemia, unspecified; E11.9 Type 2 diabetes mellitus without complications
CPT/HCPCS: 36415; 80053; 80061; 83721

== ENCOUNTER 2023-05-24 09:07 | Outpatient (AMB) | payer MEDICARE, SELFPAY ==
--- NOTE | 2023-05-24 09:18 | AM.OFFVISNUR ---
Intake Intake Visit Reasons: A1C Allergies codeine Adverse Reaction (Intermediate, Verified 05/02/23 08:05) Vomitting Results AMB Hemoglobin A1c AMB Hemoglobin A1c 7.2 % Last Edit by Kristine Saucedo RN on 05/24/23 09:27 Coding Diagnoses
== END 2023-05-24 09:36 | disposition home or self-care (01) ==
PROVIDERS: PCP Family Medicine; Visit Provider Family Medicine
DX: Z13.9 Encounter for screening, unspecified (principal)
CPT/HCPCS: 83036

== ENCOUNTER → 2023-07-15 09:36 | Outpatient (BNVA) | payer OTHER, SELFPAY | PROVIDERS: PCP Family Medicine; Visit Provider Orthopaedic Surgery ==

== ENCOUNTER 2023-07-19 12:57 | Outpatient (AMB) | payer OTHER, MEDICARE, SELFPAY ==
[2023-07-19 13:05] VITALS: BP 126/72; PULSE 64; RESP 13; TEMP 36.3; O2SAT 99; BMI 29.0
--- NOTE | 2023-07-19 13:05 | MHC.PC.OV ---
Vital Signs 07/19/23 13:05 Height 5 ft 7 in Weight 185 lb 2 oz BMI 29.0 BP 126/72 Blood Pressure Location Rt brachial Position Sitting Respiration 13 Pulse 64 Pulse Source Pulse Oximeter Temp 97.4 F Temp Source Temporal Artery Scan Pulse Oximetry (%) 99 Oxygen Delivery Method Room Air Intake Visit Reasons: Aug 13 Ortho/ Rt total knee Arthroplasty Egg Caser Required: No Accompanied by: Self / Same As Patient Allergies codeine Adverse Reaction (Intermediate, Verified 07/19/23 13:11) Vomitting Tobacco use date assessed: 07/19/23 Fall risk assessment: No Falls in past year Last assessed Fall Risk: 07/19/23 Dental Screening Dental Screen Date: 07/19/23 Did you have a dental visit in the last 12 months?: Yes Did you have a dental problem in the last 6 months where you did not have access to dental care?: No Was dental information given to patient?: Patient has dentist HPI Aug 13/ Ortho/ Rt total knee Arthroplasty HPI Details Patient?presents?for?preoperative?clearance?prior?to?right?total?knee?arthroplasty Procedure: ?Right?total?knee?arthroplasty Date:??July?2022 Surgeon:Dr Cardoso Anesthesia: ?General Cardiac?Hx:??None Pulmonary?Hx:??None Prior?Surgical?Complications:??None Prior?Anesthesia?Complications:??None Coag?Issues:??None History?of?hypertension?and?diabetes.??These?appear?well?controlled. Functional?[place]: ?Can?walk?2?city?blocks?without?stopping.??Can?walk?up?2?flights?of?stairs?with?groceries?without?stopping. Blood?pressure?today:??126/72 He?is?on?losartan?50?mg?daily A1c?4 days?ago 6.7%.? PFSH Medical History Diabetes Diverticulosis Elevated cholesterol History of benign prostatic hyperplasia HTN (hypertension) Tubular adenoma Surgical History H/O colonoscopy History of appendectomy History of open reduction and internal fixation (ORIF) procedure Family History Father CVD (cardiovascular disease) Cancer of prostate Mother Diabetes Brother No problems noted. Brother No problems noted. Sister No problems noted. Son No problems noted. Son No problems noted. 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 Nik Hills, Janelle Dang, Danny Romo and colleagues, with an educational tiffanie from [employer]. Review of Systems Const Denies chills, Denies fatigue, Denies fever(s), Denies headache(s) and Denies weakness ENT Denies dizziness and Denies headache(s) Card Denies chest pain, Denies lightheadedness, Denies dyspnea and Denies other (Palpitations) Resp Denies cough, Denies dyspnea, Denies wheezing and Denies other ( shortness of breath) Musc Details: Right?knee?instability?and?pain Denies numbness and Denies tingling Neuro Denies dizziness, Denies headache(s), Denies numbness, Denies tingling, Denies paresthesias and Denies weakness Psych Denies anxiety and Denies depression Endo Denies fatigue Aller/Immun Denies wheezing Physical exam (Primary Care) Vital Signs: Last Vital Signs Temp 97.4 F 07/19/23 13:05 Pulse 64 07/19/23 13:05 Resp 13 07/19/23 13:05 BP 126/72 07/19/23 13:05 Pulse Ox 99 07/19/23 13:05 Oxygen Delivery Method Room Air 07/19/23 13:05 BMI result Body Mass Index 29.0 Tobacco/Smoking Status: Tobacco use Status Tobacco use date assessed 12/03/22 05/02/23 08:03 Patient Tobacco Use Status Never used Tobacco 05/02/23 08:03 e-Cigarette/Vaping Use Never Used 05/02/23 08:03 Thrive Assessment: Date of Thrive Assessment Date Thrive assessed 09/04/22 05/02/23 08:03 Const General: no acute distress and well developed Nutritional Appearance: well nourished Orientation/consciousness: patient oriented x3 HENMT Head: Yes normocephalic and Yes atraumatic Eyes General: appearance normal, both eyes and all related structures Pupils: Equal, round and reactive pupils present EOM: EOMs intact bilaterally Resp Effort & Inspection: normal respiratory effort Auscultation: clear to auscultation bilaterally Cardio Rate: regular rate Rhythm: regular rhythm Heart sounds: S1 normal heart sound present, S2 normal heart sound present, no gallops, no murmurs and no rubs Neuro General: patient oriented x3 and gait normal Cranial nerves: Yes Equal, round and reactive pupils present Extrem Other: Right?knee?crepitus?and?clicking Psych Affect: normal affect Assessment and Plan Assessment & Plan (1) Preop cardiovascular exam: Code(s): Z01.810 - Encounter for preprocedural cardiovascular examination Plan: 67-year-old?male?presents?for?preoperative?clearance?prior?to No?history?of?cardiac?or?pulmonary?disease. Cardiopulmonary?exam?today?is?within?normal?limits No?prior surgical?or?anesthesia?complications. No?coagulopathies. Good?functional?reserve. CBC,?BMP?and?renal?function?are?within?normal?limits. EKG?07/15/2023?is?normal Low?risk?patient?for?low-intermediate?risk?procedure. no?contraindications?to?proceeding?with?proposed?procedure (2) Essential (primary) hypertension: Code(s): I10 - Essential (primary) hypertension Plan: Blood?pressure?is?well?controlled?today.??Goal?is?less?than?140/90 Continue?current?medication Continue?weight?control?and?exercise (3) Diabetes type 2, controlled: Code(s): E11.9 - Type 2 diabetes mellitus without complications Plan: A1c?6.7%?today?which?is?improved?and?at?goal?of?less?than?7.0%. Continue?current?medication?regimen. Continue?diabetic?diet?and?exercise. Coding Level of Care Code Est Pt Level 4 (29203) Diagnoses Preop cardiovascular exam Z01.810 Essential (primary) hypertension I10 Diabetes type 2, controlled E11.9
== END 2023-07-19 13:44 | disposition home or self-care (01) ==
PROVIDERS: PCP Family Medicine; Visit Provider Family Medicine
DX: Z01.810 Encounter for preprocedural cardiovascular examination (principal); I10 Essential (primary) hypertension; E11.9 Type 2 diabetes mellitus without complications
CPT/HCPCS: 99214

== ENCOUNTER 2023-08-08 09:20 | Outpatient (AMB) | payer OTHER, SELFPAY ==
--- NOTE | 2023-08-08 09:30 | A.OFFVIS_ITS ---
Intake Vital Signs 08/08/23 09:32 Height 5 ft 7 in Weight 185 lb BMI 29.0 Intake Visit Reasons: Preop RT TKA 08/13/23 NE Intake Note: Nadir a 67 year old male presents today for a preoperative right TKA, DOS 08/13/23 NE. Pain management agreement reviewed and signed. Allergies bee pollen [bee stings] Allergy (Severe, Verified 08/08/23 09:33) Anaphylaxis codeine Adverse Reaction (Intermediate, Verified 08/08/23 09:33) Vomiting HPI HPI Comments History of Present Illness Details Mr Espinoza presents to the office today for preop visit. He is scheduled for right total knee arthroplasty with Dr. Cardoso. He continues to have ongoing pain and difficulty with ambulation in the right knee, which is affecting his quality of life; therefore, he has elected to move forward with surgery. [facility] Medical History (Updated 08/08/23 @ 14:49 by [place] P[place] PA-C) BPH (benign prostatic hyperplasia) Osteoarthritis Dermatofibroma Tubular adenoma Diverticulosis History of benign prostatic hyperplasia Elevated cholesterol HTN (hypertension) Diabetes Surgical History H/O colonoscopy History of open reduction and internal fixation (ORIF) procedure History of appendectomy Family History Father CVD (cardiovascular disease) Cancer of prostate Mother Diabetes Brother No problems noted. Brother No problems noted. Sister No problems noted. Son No problems noted. Son No problems noted. 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 - [employer] Current occupational exposures/hazards: No Cognitive needs: No Hearing needs: No Vision needs: No Review of Systems Const All systems reviewed & are unremarkable except as noted in HPI and below Physical Exam Vital Signs: BMI result Body Mass Index 29.0 Const General: cooperative, healthy appearing and no acute distress Orientation/consciousness: patient oriented x3 Neck Neck: Yes normal visual inspection and Yes no lymphadenopathy Resp Effort & Inspection: normal respiratory effort and able to speak in complete sentences Cardio Peripheral pulses: Peripheral pulses 2+ throughout GI Inspection: Yes normal to inspection Palpation (GI): Soft to palpation Skin Lesions: no lesions Rashes: no rashes Neuro General: patient oriented x3 Extrem Other: Right knee skin intact no open wound or abrasion. ROM is 0-95 degrees. Calf supple, nontender. NVI. Assessment & Plan Assessment & Plan (1) Osteoarthritis of right knee: Code(s): M17.11 - Unilateral primary osteoarthritis, right knee Qualifiers: Osteoarthritis type: primary Qualified Code(s): M17.11 - Unilateral primary osteoarthritis, right knee Patient Instructions: Scribed for [place] Poon PA-C, by Judah Madera director of medical staff services, on 08/08/2023. I, [place] Poon PA-C, have personally reviewed and agree with the information entered by the scribe. Coding Level of Care Code Est Pt Level 3 (90675) Diagnoses Primary osteoarthritis of right knee M17.11 Osteoarthritis type: primary
[2023-08-08 09:32] VITALS: BMI 29.0
== END 2023-08-08 10:38 | disposition home or self-care (01) ==
PROVIDERS: PCP Family Medicine; Visit Provider Physician Assistant
DX: M17.11 Unilateral primary osteoarthritis, right knee (principal)
CPT/HCPCS: 99213

== ENCOUNTER → 2023-08-08 09:20 | Outpatient (BNVA) | payer OTHER, SELFPAY | PROVIDERS: PCP Family Medicine; Visit Provider Physician Assistant | DX: M17.11 Unilateral primary osteoarthritis, right knee (principal) | CPT/HCPCS: 99212 ==

== ENCOUNTER 2023-08-13 06:59 | Day surgery (SDC) | payer OTHER, SELFPAY ==
--- NOTE | 2023-07-15 11:45 | ECG_ITS ---
Test Reason : pre op Blood Pressure : / mmHG Vent. Rate : 067 BPM Atrial Rate : 067 BPM P-R Int : 150 ms QRS Dur : 092 ms QT Int : 410 ms P-R-T Axes : 061 -07 000 degrees QTc Int : 433 ms Normal sinus rhythm Normal ECG No previous ECGs available Referred By: Lefty Cardoso Electronically Signed By:JHONY BOYER
[2023-07-15 12:14] LABS: MANUAL DIFF FLAG NO
[2023-07-15 12:51] LABS: Basophils Percent Auto 0.7 % (0-2); Eosinophils Absolute Auto 0.1 X10*3/uL (0.0-0.4); Eosinophils Percent Auto 2.2 % (0-4); Hematocrit 44.9 % (42.0-52.0); Hemoglobin 15.5 g/dl (14.0-18.0); Imm Gran Abs Auto 0.01 X10*3/uL (0.00-0.03); Imm Gran Pct Auto 0.2 % (0.0-0.4); Lymphocytes Absolute Auto 1.8 X10*3/uL (1.2-4.9); Lymphocytes Percent Auto 40.3 % (20-40); Mean Corpuscular HGB Conc 34.5 g/dl (31.0-36.0); Mean Corpuscular Volume 92.8 fL (80.0-98.0); Mean Platelet Volume 10.6 fL (9.4-12.4); Monocytes Absolute Auto 0.4 X10*3/uL (0.1-1.2); Monocytes Percent Auto 8.3 % (2-11); Neutrophils Absolute Auto 2.2 x10*3/uL (2.0-8.3); Neutrophils Percent Auto 48.3 % (45-73); Platelet Count 181 X10*3/uL (160-400); Red Blood Count 4.84 X10*6/uL (4.60-5.80); Red Cell Distribution Width 12.4 % (11.0-16.0); White Blood Count 4.5 X10*3/uL (4.8-10.8)
[2023-07-15 14:01] LABS: Estimated Average Glucose 146 mg/dL; Hemoglobin A1c % 6.7 % (<6.0)
[2023-07-15 14:20] LABS: Anion Gap 15 (12-20); Blood Urea Nitrogen 14 mg/dL (9-16); Carbon Dioxide 24 mmol/L (22-29); Chloride 107 mmol/L (96-108); Estimated Glomerular Filt Rate > 60; Glucose Random 179 mg/dL (60-115); Potassium 4.8 mmol/L (3.3-5.1); Sodium 141 mmol/L (135-145)
[2023-08-06 12:00] VITALS: BP 131/68; PULSE 85; RESP 18; O2SAT 98; BMI 28.8
--- NOTE | 2023-08-06 12:17 | HO.ANESPROP2 ---
Documented by User: Arin Carrasco NP 08/06/23 13:20 HPI - Anesthesia Eval Consult details Narrative: 67yo M for Right Knee Replacement Total PCP cleared No recent illness No CP/SOB with >4 mets DM. PO meds only. FBS ~ 130s PMFSH Active Problems Active Problems: All Active Problems (Updated 08/06/23 @ 12:15 by Freida Bustillos RN) Preop cardiovascular exam (Acute) Poison stacia (Acute) Lump of skin (Acute) Osteoarthritis of right knee (Acute) Palpitations (Acute) Sun-damaged skin (Acute) Shoulder pain (Acute) Arm pain (Acute) Immunization counseling (Acute) Right knee pain (Acute) Fatigue (Acute) Elevated bilirubin (Acute) Skin lesion of back (Acute) Borderline anemia (Acute) Lymphadenopathy of head and neck (Acute) Lymphadenopathy (Acute) Exposure to COVID-19 virus (Acute) Dermatofibroma (Acute) Difficulty sleeping (Acute) Screening for colon cancer (Acute) Screening for prostate cancer (Acute) Annual physical exam (Acute) Essential (primary) hypertension (Acute) Diabetes type 2, controlled (Acute) Tubular adenoma (Acute) Diverticulosis (Acute) Elevated cholesterol (Acute) Past Medical History Medical History (Updated 08/08/23 @ 14:49 by [place] P[place] PA-C) BPH (benign prostatic hyperplasia) Osteoarthritis Dermatofibroma Tubular adenoma Diverticulosis History of benign prostatic hyperplasia Elevated cholesterol HTN (hypertension) Diabetes Family History Family History Father CVD (cardiovascular disease) Cancer of prostate Mother Diabetes Brother No problems noted. Brother No problems noted. Sister No problems noted. Son No problems noted. Son No problems noted. Maternal Grandmother Diabetes Family history of problems with anesthesia: No Surgical History Surgical History H/O colonoscopy History of open reduction and internal fixation (ORIF) procedure History of appendectomy History of Problems with Anesthesia: No Social History Social History Household Members: Spouse Housing: House Are you a primary health care marketing specialist to a significant other at home: No Do you presently have visiting nurse or other home services: No Alcohol intake: current Alcohol intake frequency: holidays/special occasions only Patient Tobacco Use Status: Former Tobacco user Quit Date: 1973 Tobacco use type: Cigarette Years Smoked: 3 Smoked in Last 30 Days: No e-Cigarette/Vaping Use: Never Used Patient Interested in Nicotine Replacement: No Patient Given Instructions on How to Stop Smoking: No Second Hand Smoke Exposure: No Use of substances other than those prescribed or required for medical reasons: No Currently Displaying Signs/Symptoms of Drug Intoxication Withdrawal: No Any prior treatment program specific to substance use: No Have you been hit, kicked, punched, or otherwise hurt by someone within the past year? 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 - [employer] Current occupational exposures/hazards: No Cognitive needs: No Hearing needs: No Vision needs: No Meds Allergies Allergy/AdvReac Type Severity Reaction Status Date / Time bee pollen [bee stings] Allergy Severe Anaphylaxis Verified 08/08/23 09:33 codeine AdvReac Intermediate Vomiting Verified 08/08/23 09:33 Home Medications Medication Instructions Recorded Confirmed Last Taken Type finasteride 5 mg tablet 5 mg PO DAILY 08/06/23 08/13/23 08/13/23 History glipizide 10 mg tablet, extended 10 mg PO DAILY 08/06/23 08/13/23 08/12/23 History release 24 hr losartan 25 mg tablet 50 mg PO DAILY 08/06/23 08/13/23 08/12/23 History pravastatin 20 mg tablet 20 mg PO DAILY 08/06/23 08/13/23 Unknown History tamsulosin 0.4 mg capsule 0.4 mg PO DAILY 08/06/23 08/13/23 08/13/23 History valacyclovir 500 mg tablet 500 mg PO DAILY 08/06/23 08/13/23 08/12/23 History Exam Exam Date and Time: August 06, 2023 1217 Height,Weight and Vital Signs: Height 5 ft 7 in Weight 83.461 kg Last Vital Signs Pulse 85 08/06/23 12:00 Resp 18 08/06/23 12:00 BP 131/68 08/06/23 12:00 Pulse Ox 98 08/06/23 12:00 O2 Del Method Room Air 08/06/23 12:00 Pertinent Lab Results Pertinent Lab Results: Laboratory Tests 07/15/23 12:13 WBC 4.5 L RBC 4.84 Hgb 15.5 Hct 44.9 MCV 92.8 MCH 32.0 MCHC 34.5 RDW 12.4 Plt Count 181 MPV 10.6 Immature Gran % (Auto) 0.2 Neut % (Auto) 48.3 Lymph % (Auto) 40.3 H Kleberg % (Auto) 8.3 Eos % (Auto) 2.2 Baso % (Auto) 0.7 Lymph # (Auto) 1.8 Kleberg # (Auto) 0.4 Eos # (Auto) 0.1 Baso # (Auto) 0.0 Abs Immat Gran (auto) 0.01 Absolute Neuts (auto) 2.2 Absolute Nucleated RBC 0.000 Nucleated RBC % (auto) 0.0 Sodium 141 Potassium 4.8 Chloride 107 Carbon Dioxide 24 Anion Gap 15 BUN 14 Creatinine 0.91 Estim Creat Clear Calc TNP Estimated GFR > 60 Random Glucose 179 H Estimat Average Glucose 146 Hemoglobin A1c % 6.7 H Calcium 10.0 Narrative Narrative: EKG 07/2023 Vent. Rate : 067 BPM Atrial Rate : 067 BPM P-R Int : 150 ms QRS Dur : 092 ms QT Int : 410 ms P-R-T Axes : 061 -07 000 degrees QTc Int : 433 ms Normal sinus rhythm Normal ECG No previous ECGs available Airway Mallampati Class: II TM Dist: >3cm Neck ROM: Full Loose/Missing/Broken Teeth: Yes (Missing molars throughout. Permanent bridges x 2 on right) Heart: RRR Lungs: CTAB Assessment and Plan Assessment Anesthesia Assessment: Anesthesia Plan Discussed and PAT Visit Final Anesthetic Review Family History of Problems with Anesthesia: No History of Problems with Anesthesia: No Documented by User: Torsten Greenberg MD 08/13/23 16:25 [facility] Past Medical History Medical History (Updated 08/08/23 @ 14:49 by [place] PA-C) BPH (benign prostatic hyperplasia) Osteoarthritis Dermatofibroma Tubular adenoma Diverticulosis History of benign prostatic hyperplasia Elevated cholesterol HTN (hypertension) Diabetes Functional capacity: independent ambulation Family History Family History Father CVD (cardiovascular disease) Cancer of prostate Mother Diabetes Brother No problems noted. Brother No problems noted. Sister No problems noted. Son No problems noted. Son No problems noted. Maternal Grandmother Diabetes Surgical History Surgical History H/O colonoscopy History of open reduction and internal fixation (ORIF) procedure History of appendectomy Social History Social History Household Members: Spouse Housing: House Are you a primary health care marketing specialist to a significant other at home: No Do you presently have visiting nurse or other home services: No Alcohol intake: current Alcohol intake frequency: holidays/special occasions only Patient Tobacco Use Status: Former Tobacco user Quit Date: 1973 Tobacco use type: Cigarette Years Smoked: 3 Smoked in Last 30 Days: No e-Cigarette/Vaping Use: Never Used Patient Interested in Nicotine Replacement: No Patient Given Instructions on How to Stop Smoking: No Second Hand Smoke Exposure: No Use of substances other than those prescribed or required for medical reasons: No Currently Displaying Signs/Symptoms of Drug Intoxication Withdrawal: No Any prior treatment program specific to substance use: No Have you been hit, kicked, punched, or otherwise hurt by someone within the past year? 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 - [employer] Current occupational exposures/hazards: No Cognitive needs: No Hearing needs: No Vision needs: No Meds Allergies Allergy/AdvReac Type Severity Reaction Status Date / Time bee pollen [bee stings] Allergy Severe Anaphylaxis Verified 08/08/23 09:33 codeine AdvReac Intermediate Vomiting Verified 08/08/23 09:33 Home Medications Medication Instructions Recorded Confirmed Last Taken Type finasteride 5 mg tablet 5 mg PO DAILY 08/06/23 08/13/23 08/13/23 History glipizide 10 mg tablet, extended 10 mg PO DAILY 08/06/23 08/13/23 08/12/23 History release 24 hr losartan 25 mg tablet 50 mg PO DAILY 08/06/23 08/13/23 08/12/23 History pravastatin 20 mg tablet 20 mg PO DAILY 08/06/23 08/13/23 Unknown History tamsulosin 0.4 mg capsule 0.4 mg PO DAILY 08/06/23 08/13/23 08/13/23 History valacyclovir 500 mg tablet 500 mg PO DAILY 08/06/23 08/13/23 08/12/23 History Exam Airway Mallampati Class: III Loose/Missing/Broken Teeth: Yes (Missing molars throughout. 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 Chipped tooth upper ) Assessment and Plan Assessment Anesthesia Assessment: Chart Reviewed Final Anesthetic Review NPO: Yes ASA Class: II Final Preanesthetic Review: Meds/Allgs Chart Reviewed, Consent Obtained/Reviewed and Anes Risks/Benef Reviewed Patient Risk: Intermediate Procedure Risk: Intermediate Anesthetic Plan Anesthetic Plan: Spinal, Regional Block and Agree w/ Assess. and Plan Disposition: Standard PACU
[2023-08-06 15:06] LABS: MRSA Nasal PCR NEGATIVE (Negative); SA Nasal PCR NEGATIVE (Negative)
[2023-08-13] VITALS (11 sets, daily range): BP systolic 107–152; BP diastolic 53–92; PULSE 66–97; RESP 13–18; TEMP 36.1–36.9; O2SAT 95–100; BMI 29.1
--- NOTE | ~2023-08-13 | XR_ITS ---
EXAMINATION: XR KNEE, RIGHT CLINICAL INFORMATION: Right total knee replacement COMPARISON: None available. TECHNIQUE: Frontal and lateral views of the right knee. FINDINGS: There is a right total knee replacement with patellar resurfacing in anatomic alignment and position. Soft tissue air and skin jm are consistent with recent surgery. XR/XR knee RT 2V IMPRESSION: Right total knee arthroplasty in anatomic alignment and position.
--- NOTE | 2023-08-13 07:30 | PHA.MEDREC ---
Pharmacy Consult ? Medication Reconciliation Pharmacy has completed the medication reconciliation.PHARMACY HAS REVIEWED THE MED REC DONE BY NURSING
[2023-08-13 07:49] LABS: Glucose, Whole Blood 182 mg/dL (60-115)
[2023-08-13 07:52] LABS: Hematocrit 42.4 % (42.0-52.0); Hemoglobin 14.8 g/dl (14.0-18.0)
[2023-08-13] MEDS: Lactated Ringers 1,000 ML 100 ML IVCONT ×3 (07:52→19:58)
--- NOTE | 2023-08-13 10:16 | MHC.SHP ---
Pre-Procedural Eval Section A Date of Service: 08/13/23 The patient is an INPATIENT: No Changes since office visit: No Cold of Flu in the past 2 weeks, No New Medical Problems, No Changes in Medication and No Patient answered all questions The History & Physical has been completed within 30 days and I have reviewed it.: Yes Section B Chief Complaint: RT TKA Allergies: Allergies Allergy/AdvReac Type Severity Reaction Status Date / Time bee pollen [bee stings] Allergy Severe Anaphylaxis Verified 08/08/23 09:33 codeine AdvReac Intermediate Vomiting Verified 08/08/23 09:33 Plan I have reviewed the history and physical and performed a pertinent physical examination on my patient. No changes have occurred unless specified. Time Spent With Patient Time: Total time managing care of this patient today ____ minutes.
[2023-08-13 13:28] LABS: Glucose, Whole Blood 124 mg/dL (60-115)
--- NOTE | 2023-08-13 15:10 | P.BOP_ITS ---
Brief Operative Note Date of Service: 08/13/23 Pre-op diagnosis: Right knee OA Post-op diagnosis: same Procedure: Right TKA Implants: Genna Triathlon press fit cruciate retaining 02/15/11 Surgeon: Lefty Cardoso MD Anesthesia: GETA Was an Woven Wood Shade Assembler used for this Procedure?: Yes Woven Wood Shade Assembler: [place] Poon Estimated blood loss (mL): 100 Tourniquet time (min): 50 IV fluids (mL): 1,000 Pathology: other Condition: stable Disposition: PACU
[2023-08-13] MEDS: HYDROmorphone HCl 0.5 MG/0.5 ML SYRINGE 0.25 MG IVPUSH (15:26)
--- NOTE | 2023-08-13 15:57 | P.CONHOSP_ITS ---
History of Present Illness Data of Consult Service Date: 08/13/23 Primary Care Provider: John Gonzales MD HPI 67-year-old man with history of hypertension, diabetes mellitus type 2 and BPH. Patient is status post total knee arthroplasty. Surgery was unremarkable. Patient has been able to eat and drink without any nausea or vomiting. He does have a moderate amount of pain at this time in his IV pain medication was adjusted accordingly. He has no acute medical complaints at this time he is currently resting in bed with family member at bedside. Review of Systems 2 Review of Systems: Denies any recent fever chills or decrease in appetite respiratory denies any shortness of breath coverage production cardiovascular denied chest pain gastrointestinal denies any dysphagia abdominal pain nausea vomiting or diarrhea genitourinary denies any dysuria frequency or hematuria musculoskeletal knee pain, right neuropsych denies any weakness or seizures all other systems reviewed are negative [facility] Medical History (Updated 08/16/23 @ 00:02 by Mihaela Mane) Right knee pain BPH (benign prostatic hyperplasia) Osteoarthritis Dermatofibroma Tubular adenoma Diverticulosis History of benign prostatic hyperplasia Elevated cholesterol HTN (hypertension) Diabetes Functional capacity: independent ambulation Family History Father CVD (cardiovascular disease) Cancer of prostate Mother Diabetes Brother No problems noted. Brother No problems noted. Sister No problems noted. Son No problems noted. Son No problems noted. Maternal Grandmother Diabetes Surgical History H/O colonoscopy History of open reduction and internal fixation (ORIF) procedure History of appendectomy Social History Household Members: Spouse Housing: House Are you a primary career and transition teacher to a significant other at home: No Do you presently have visiting nurse or other home services: No Alcohol intake: current Alcohol intake frequency: holidays/special occasions only Patient Tobacco Use Status: Former Tobacco user Quit Date: 1973 Tobacco use type: Cigarette Years Smoked: 3 e-Cigarette/Vaping Use: Never Used Second Hand Smoke Exposure: No service: No Current occupational status: retired 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 - [employer] Current occupational exposures/hazards: No Cognitive needs: No Hearing needs: No Vision needs: No Meds Allergies Allergy/AdvReac Type Severity Reaction Status Date / Time bee pollen [bee stings] Allergy Severe Anaphylaxis Verified 08/08/23 09:33 codeine AdvReac Intermediate Vomiting Verified 08/08/23 09:33 Home Medications Medication Instructions Recorded Confirmed Last Taken Type finasteride 5 mg tablet 5 mg PO DAILY 08/06/23 08/13/23 08/13/23 History losartan 25 mg tablet 50 mg PO DAILY 08/06/23 08/13/23 08/12/23 History tamsulosin 0.4 mg capsule 0.4 mg PO DAILY 08/06/23 08/13/23 08/13/23 History valacyclovir 500 mg tablet 500 mg PO DAILY 08/06/23 08/13/23 08/12/23 History Physical Exam 2 Vital Signs and Narrative: Vital Signs: Last Vital Signs Temp 96.9 F 08/13/23 14:10 Pulse 66 08/13/23 14:10 Resp 18 08/13/23 14:10 BP 134/72 08/13/23 14:10 Pulse Ox 100 08/13/23 14:10 O2 Del Method Nasal Cannula 08/13/23 14:10 O2 Flow Rate 2 08/13/23 14:10 BMI result Body Mass Index 29.1 Appearing in no acute distress head is normocephalic atraumatic eyes pupils are PERRLA sclera is anicteric mouth throat mucous membranes are intact and moist neck is supple no lymphadenopathy, no JVD noted lung sounds are clear to auscultation heart regular rate rhythm, clear S1, S2 positive bowel sounds, abdomen is soft, nontender neuro patient is alert x3, no focal deficits Right knee dressing intact, surgical call incision not visualized Results Labs 08/15/23 06:04 08/15/23 06:04 Labs: Laboratory Results - last 24 hr 08/13/23 08/13/23 07:45 13:25 POC Glucose 182 H 124 H Imaging Radiologist's Impressions: Impressions Knee X-Ray 08/13/23 13:27 IMPRESSION: Right total knee arthroplasty in anatomic alignment and position. Assessment and Plan (1) Right knee pain: Status: Inactive Plan 67-year-old man admitted for total right knee arthroplasty. Total right knee arthroplasty Management as per surgical team Pain management Hypertension. Stable blood pressure Continue losartan in the morning Diabetes mellitus type 2 Sliding scale ADA diet BPH Continue tamsulosin and finasteride DVT prophylaxis as per admitting provider Full code Medical consultation complete. Will sign off Time Spent With Patient Time: Total time managing care of this patient today ____ minutes.
[2023-08-13] MEDS: oxyCODONE HCl Immed Release 5 MG TABLET PO ×2 (16:10→16:38)
[2023-08-13 16:33] LABS: Glucose, Whole Blood 102 mg/dL (60-115)
[2023-08-13] MEDS: Acetaminophen 1,000 MG/100 ML PIGGYBACK 400 MG IV ×2 (17:26→23:24)
[2023-08-13 19:38] LABS: Glucose, Whole Blood 206 mg/dL (60-115)
[2023-08-13] MEDS: HYDROmorphone HCl 0.5 MG/0.5 ML SYRINGE IVPUSH ×2 (19:39→23:50)
[2023-08-13] MEDS: oxyCODONE HCl ER 10 MG TAB.ER.12H PO (20:49)
[2023-08-13] MEDS: Celecoxib 200 MG CAPSULE PO (20:49)
[2023-08-13] MEDS: Insulin Lispro 100 UNIT/ML 3 ML VIAL SUBCUT (20:49)
[2023-08-14 04:00] VITALS: BP 151/72; PULSE 96; RESP 16; TEMP 37.5; O2SAT 96
[2023-08-14] MEDS: Acetaminophen 1,000 MG/100 ML PIGGYBACK 400 MG IV ×2 (04:07→10:45)
[2023-08-14] MEDS: HYDROmorphone HCl 0.5 MG/0.5 ML SYRINGE IVPUSH ×2 (04:08→08:17)
[2023-08-14] MEDS: ondansetron HCL 4 MG/2 ML VIAL IVPUSH ×3 (04:15→14:43)
[2023-08-14] MEDS: Lactated Ringers 1,000 ML 100 ML IVCONT ×3 (05:40→23:29)
[2023-08-14 06:17] LABS: MANUAL DIFF FLAG NO
[2023-08-14 06:25] LABS: Basophils Percent Auto 0.2 % (0-2); Eosinophils Percent Auto 0.5 % (0-4); Hematocrit 35.7 % (42.0-52.0); Hemoglobin 12.5 g/dl (14.0-18.0); Imm Gran Abs Auto 0.03 X10*3/uL (0.00-0.03); Imm Gran Pct Auto 0.3 % (0.0-0.4); Lymphocytes Percent Auto 11.6 % (20-40); Mean Corpuscular Hemoglobin 32.1 pg (27.0-33.0); Mean Corpuscular Volume 91.5 fL (80.0-98.0); Mean Platelet Volume 10.6 fL (9.4-12.4); Monocytes Absolute Auto 0.9 X10*3/uL (0.1-1.2); Monocytes Percent Auto 9.7 % (2-11); Neutrophils Absolute Auto 6.8 x10*3/uL (2.0-8.3); Neutrophils Percent Auto 77.7 % (45-73); Platelet Count 144 X10*3/uL (160-400); Red Cell Distribution Width 11.9 % (11.0-16.0); White Blood Count 8.7 X10*3/uL (4.8-10.8)
[2023-08-14 06:51] LABS: Anion Gap 12 (12-20); Blood Urea Nitrogen 11 mg/dL (9-16); Calcium 8.3 mg/dL (8.4-10.2); Carbon Dioxide 23 mmol/L (22-29); Chloride 106 mmol/L (96-108); Creatinine Clr Calc Pharmacy 95.5; Estimated Glomerular Filt Rate > 60; Glucose Fasting 175 mg/dL (60-99); Potassium 3.6 mmol/L (3.3-5.1); Sodium 137 mmol/L (135-145)
--- NOTE | 2023-08-14 07:18 | PM.PNORT ---
Subjective Subjective Date of Service: 08/14/23 Interval history: POD1 s/p RTKA Patient is resting in bed comfortably No overnight events Pain is managed No additional complaints Physical Exam Vital Signs: Vital Signs: Last Vital Signs Temp 99.5 F 08/14/23 04:00 Pulse 96 08/14/23 04:00 Resp 16 08/14/23 04:00 BP 151/72 H 08/14/23 04:00 Pulse Ox 96 08/14/23 04:00 O2 Del Method Room Air 08/14/23 04:00 O2 Flow Rate 2 08/13/23 14:10 BMI result Body Mass Index 29.1 Const: General: cooperative, healthy appearing and no acute distress Resp: Effort & Inspection: normal respiratory effort and able to speak in complete sentences Cardio: Rate: regular rate Peripheral pulses: Peripheral pulses 2+ throughout GI: Palpation (GI): Soft to palpation Skin: Lesions: no lesions Rashes: no rashes Extrem: Other: Right knee dressing is c/d/i. Able to dorsi/plantar flex. Calf is supple and nontender. Sensation intact. Pedal pulse intact. Procedures Date of Service Date of Service: 08/14/23 Progress Note: A&P Assessment and plan (1) Status post total knee replacement, right: Status: Acute Plan Continue pain mgmnt Begin ASA for dvt ppx begin PT for RTKA Dispo planning-Pending PT eval, pain mgmnt Time Spent With Patient Time: Total time managing care of this patient today ____ minutes. Quality Stroke Does the patient have a stroke diagnosis?: No VTE Prior VTE?: No VTE Risk Level:: Medical - moderate - high VTE Device Contraindication: N/A - Device Ordered VTE Drug Contraindication: N/A - Med Ordered
[2023-08-14 07:51] LABS: Glucose, Whole Blood 163 mg/dL (60-115)
--- NOTE | 2023-08-14 07:53 | W.PM.OPN ---
Operative Note Operative Note Date of Service: 08/13/23 Narrative: Date of Service: 08/13/23 Pre-op diagnosis: Right knee OA Post-op diagnosis: same Procedure: Right TKA Implants: Gardner Triathlon press fit cruciate retaining 02/15/11 Surgeon: Lefty Cardoso MD Anesthesia: GETA Was an Block Saw Operator used for this Procedure?: Yes Block Saw Operator: [place] Estimated blood loss (mL): 100 Tourniquet time (min): 50 IV fluids (mL): 1,000 Pathology: other Condition: stable Disposition: PACU Procedure in detail: The patient was brought to the operating room and prepped and draped in standard sterile fashion. A time-out was called to identify proper site proper procedure proper surgeon and IV antibiotics were administered. 1 g of IV tranexamic acid was administered. He had a small flexion contreacture. I began by making a midline incision to the retinaculum and performed a medial parapatellar arthrotomy. The patella was translated laterally and the knee was flexed up. The anterior and medial compartments were eburnated. I performed a small medial peel and resected the infrapatellar fat pad. Theriot's line was then used to drill my intramedullary femoral guide and my distal femur cut of 12 mm was made in 5 degrees of valgus while protecting the soft tissues. I then measured a #5 femur and placed my cutting guide and made my anterior posterior and chamfer cuts protecting the soft tissues at all times. Once I was satisfied with my cuts I turned my attention to the tibia. I removed the meniscus medially and laterally and , using an external cutting guide, in line with the tibial crest and the third ray, I made my distal tibial cut in 3 deg slope of while protecting the PCL the posterior soft tissues at all times. An extension block was used to confirm appropriate amount of bony resection. I then sized a #5 tibia and once I was satisfied that there was complete tibial coverage I placed my trial and with the trial femur in place took the knee through range of motion. I was satisfied with the extension and flexion as well as the stability and balance at 0, 30 and 90 degrees. I then turned my attention to the patella where I removed 1 cm from the undersurface of the patella and then trialed a 29a patellar button. Again the knee was taken through range of motion I was satisfied with the tracking. I then returned to the femur and drilled my femoral lug holes and prepared the tibia. A femoral bone plug was placed and the knee was irrigated copiously. I then press fit the patella, tibia and femur in standard fashion. I trialed different inserts until I selected a #11 insert. The final insert was placed and irrigation with local TXA was performed. A Werewolf cautery wand was used to maintain hemostasis over the capsule and meniscal beds, the gutters and peripatellar soft tissues. The knee was then closed with a running Quill suture, a 3 0 Vicryl and jm on the skin. Patient was then placed in sterile dressing and brought to recovery room in stable condition there were no known complications.
[2023-08-14 07:56] VITALS: BP 179/86; PULSE 87; RESP 17; TEMP 36.6; O2SAT 97
[2023-08-14] MEDS: Celecoxib 200 MG CAPSULE PO ×2 (08:19→19:41)
[2023-08-14] MEDS: Losartan Potassium 50 MG TABLET PO (08:19)
[2023-08-14] MEDS: oxyCODONE HCl ER 10 MG TAB.ER.12H PO ×2 (08:20→19:38)
[2023-08-14] MEDS: Finasteride 5 MG TABLET PO (08:20)
[2023-08-14] MEDS: Insulin Lispro 100 UNIT/ML 3 ML VIAL SUBCUT ×4 (08:21→19:45)
--- NOTE | 2023-08-14 09:39 | MHC.CLN ---
NUTRITION INCREASED CALORIES TO DIABETIC 1800 KCALS TO BETTER MEET ESTIMATED ENERGY NEEDS.
--- NOTE | 2023-08-14 10:41 | MHC.CM.PN ---
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
[2023-08-14] MEDS: oxyCODONE HCl Immed Release 5 MG TABLET 10 MG PO ×2 (10:44→14:39)
[2023-08-14 11:25] LABS: Glucose, Whole Blood 170 mg/dL (60-115)
--- NOTE | 2023-08-14 14:03 | HO.POSTANES ---
Post Anesthesia Evaluation Post Anesthesia Evaluation Date of Service: 08/14/23 Vital Signs: Vital Signs Temp Pulse Resp BP Pulse Ox O2 Del Method 08/14/23 07:56 97.9 F 87 17 179/86 H 97 Room Air 08/14/23 04:00 99.5 F 96 16 151/72 H 96 Room Air Anesthesia: Spinal and Nerve Block Mental Status: Awake Pain Control: Satisfactory Nausea/Vomiting: None Hydration: Adequate Anesthesia-Related Issues: No Anes. Related Issues
[2023-08-14] MEDS: Acetaminophen 325 MG TABLET 650 MG PO (14:56)
[2023-08-14 15:42] VITALS: BP 136/75; PULSE 83; RESP 18; TEMP 36.5; O2SAT 95
[2023-08-14 16:07] LABS: Glucose, Whole Blood 180 mg/dL (60-115)
[2023-08-14 19:51] LABS: Glucose, Whole Blood 180 mg/dL (60-115)
[2023-08-14 19:52] VITALS: BP 131/65; PULSE 84; RESP 18; TEMP 36.1; O2SAT 98
[2023-08-15 03:09] VITALS: BP 141/67; PULSE 95; RESP 18; TEMP 36.8; O2SAT 98
[2023-08-15] MEDS: HYDROmorphone HCl 0.5 MG/0.5 ML SYRINGE IVPUSH (03:55)
[2023-08-15] MEDS: ondansetron HCL 4 MG/2 ML VIAL IVPUSH ×3 (03:56→15:12)
[2023-08-15 06:14] LABS: MANUAL DIFF FLAG NO
--- NOTE | 2023-08-15 06:15 | P.DS_ITS ---
DS: Providers Provider Date of Service: 08/15/23 <[place] PA-C - Last Filed: 08/15/23 09:16> Primary care physician: John Gonzales MD <NICO Motta Last Filed: 08/15/23 09:16> Consults: 08/13/23 14:04 Consult to Hospitalist Routine Comment: Consulting Provider: Hospitalist Reason For Exam: Diabetes <NICO Motta Last Filed: 08/15/23 09:16> DS: Diagnosis Discharge Diagnosis (1) Status post total knee replacement, right: Status: Acute <NICO Motta Last Filed: 08/15/23 09:16> DS: Summary Hospital Course Hospital Course: The patient underwent a successful Right total knee arthroplasty on 08/13/23, was transferred to PACU and then to the floor to recover. During their stay, their vitals were stable, afebrile at 988.8. Labs were unremarkable, H/H 10.5/30.5. POD 1 he was started on Aspirin for DVT ppx, they also received Physical Therapy services twice a day. Physical therapy should include gait training, ROM to tolerance and quad strength. He is WBAT. Prior to discharge, his dressing was changed, incision clean dry and intact, new Aquacel dressing applied. The Aquacel dressing should remain intact and dry at all times. Any concerns with the dressing, please contact orthopedic office. No showering. The plan is to be discharged home with [facility] <NICO Motta Last Filed: 08/15/23 09:16> Time Attestation Discharge coordination time: Less than 30 minutes <NICO Corona Last Filed: 08/15/23 09:14> Quality: Safe Use of Opioids Does Pt have an Active Cancer Diagnosis on the Problem List?: No <NICO Corona Last Filed: 08/15/23 09:14> Quality: Stroke Does the patient have a stroke diagnosis?: No <NICO Corona Last Filed: 08/15/23 09:14> Physical Exam Vital Signs: Vital Signs: Last Vital Signs Temp 98.2 F 11/02/23 03:09 Pulse 95 08/15/23 03:09 Resp 18 08/15/23 03:09 BP 141/67 H 08/15/23 03:09 Pulse Ox 98 08/15/23 03:09 O2 Del Method Room Air 08/15/23 03:09 O2 Flow Rate 2 08/13/23 14:10 BMI result Body Mass Index 29.1 <[place] PA-C - Last Filed: 08/15/23 09:16> Const: General: cooperative, healthy appearing and no acute distress <Summer Solomon PA-C - Last Filed: 08/15/23 09:14> Resp: Effort & Inspection: normal respiratory effort and able to speak in complete sentences <Summer Solomon PA-C - Last Filed: 08/15/23 09:14> Cardio: Rate: regular rate <Summer Solomon PA-C - Last Filed: 08/15/23 09:14> Peripheral pulses: Peripheral pulses 2+ throughout <Summer Solomon PA-C - Last Filed: 08/15/23 09:14> GI: Palpation (GI): Soft to palpation <Summer Solomon PA-C - Last Filed: 08/15/23 09:14> Skin: Lesions: no lesions <KARMA CoronaC - Last Filed: 08/15/23 09:14> Rashes: no rashes <Summer Solomon PA-C - Last Filed: 08/15/23 09:14> Extrem: Other: Right knee dressing is c/d/i. Able to dorsi/plantar flex. Calf is supple and nontender. Sensation intact. Pedal pulse intact. <Summer Solomon PA-C - Last Filed: 08/15/23 09:14> DS: Data Data Completed and Pending Pending studies at discharge: Pending at discharge 08/13/23 12:20 Surgical [PTH] Routine <[place] PA-C - Last Filed: 08/15/23 09:16> Labs on day of discharge: Laboratory Results - last 24 hr 08/14/23 08/14/23 08/14/23 05:30 07:36 11:08 WBC 8.7 RBC 3.90 L Hgb 12.5 L Hct 35.7 L MCV 91.5 MCH 32.1 MCHC 35.0 RDW 11.9 Plt Count 144 L MPV 10.6 Immature Gran % (Auto) 0.3 Neut % (Auto) 77.7 H Lymph % (Auto) 11.6 L [place] % (Auto) 9.7 Eos % (Auto) 0.5 Baso % (Auto) 0.2 Lymph # (Auto) 1.0 L [place] # (Auto) 0.9 Eos # (Auto) 0.0 Baso # (Auto) 0.0 Abs Immat Gran (auto) 0.03 Absolute Neuts (auto) 6.8 Absolute Nucleated RBC 0.000 Nucleated RBC % (auto) 0.0 Sodium 137 Potassium 3.6 D Chloride 106 Carbon Dioxide 23 Anion Gap 12 BUN 11 Creatinine 0.79 Estim Creat Clear Calc 95.5 Estimated GFR > 60 POC Glucose 163 H 170 H Fasting Glucose 175 H Calcium 8.3 L D 08/14/23 08/14/23 15:56 19:38 WBC RBC Hgb Hct MCV MCH MCHC RDW Plt Count MPV Immature Gran % (Auto) Neut % (Auto) Lymph % (Auto) [place] % (Auto) Eos % (Auto) Baso % (Auto) Lymph # (Auto) [place] # (Auto) Eos # (Auto) Baso # (Auto) Abs Immat Gran (auto) Absolute Neuts (auto) Absolute Nucleated RBC Nucleated RBC % (auto) Sodium Potassium Chloride Carbon Dioxide Anion Gap BUN Creatinine Estim Creat Clear Calc Estimated GFR POC Glucose 180 H 180 H Fasting Glucose Calcium <[place] PA-C - Last Filed: 08/15/23 09:16> Discharge Plan Discharge Patient Disposition: Home, Self-Care <[place] PA-C - Last Filed: 08/15/23 09:16> Referrals: Kimmy [Outside] (Kimmy STOUT will contact you directly to arrange start of care ) [place] PA-C [Physician Nurses Superintendent] - 2 Weeks (08/29/23 11:30 [facility] [place] Orthopedic Surgeons [place] PA-C) <[place] PA-C - Last Filed: 08/15/23 09:16> Discharge Medications: New celecoxib 200 mg Capsule 200 mg PO BID 30 Days Qty: 60 0RF acetaminophen 325 mg Tablet 650 mg PO Q6H PRN (Reason: Pain, Mild (Pain Scale 1-3)) 30 Days Qty: 240 0RF aspirin 325 mg Tablet 325 mg PO BID 42 Days Qty: 84 0RF oxycodone 5 mg Tablet 10 mg PO Q4H PRN (Reason: Pain, Moderate(Pain Scale 4-6)) 7 Days Qty: 42 0RF Rx Instructions: Partial Fill upon patient request. Continued epinephrine [EpiPen 2-Mo] 0.3 mg/0.3 mL auto-injector 0.3 mg IM Q4H PRN (Reason: anaphylaxis) 30 Days Qty: 2 4RF glipizide 10 mg tablet extended release 24hr 10 mg PO DAILY losartan 25 mg tablet 50 mg PO DAILY finasteride 5 mg tablet 5 mg PO DAILY valacyclovir 500 mg tablet 500 mg PO DAILY tamsulosin 0.4 mg capsule 0.4 mg PO DAILY pravastatin 20 mg tablet 20 mg PO DAILY Patient Comments: pt sts unkniwn when took this med last ran out gabapentin 300 mg capsule 300 mg PO BEDTIME 30 Days Qty: 30 3RF Discontinued ibuprofen 800 mg tablet 800 mg PO Q8H PRN (Reason: pain) 30 Days Qty: 90 1RF <[place] PA-C - Last Filed: 08/15/23 09:16> Discharge Orders: Discharge Order (Routine); Ordered 08/15/23 Ordered By: Summer Solomon <[place] PA-C - Last Filed: 08/15/23 09:16> Diet: Regular diet <[place] PA-C - Last Filed: 08/15/23 09:16> Regular diet <Summer Solomon PA-C - Last Filed: 08/15/23 09:14> Activity on Discharge: Use cane or walker <[place] PA-C - Last Filed: 08/15/23 09:16> Use cane or walker <NICO Corona Last Filed: 08/15/23 09:14> Activity Restrictions/Additional Instructions: Physical Therapy for Total knee arthroplasty: WBAT, gait training, ROM 0- 12, quad strength * Limit stair climbing * No showering, no tub bath-keep dressing clean, dry and intact * No driving x6 weeks * Continue Aspirin twice a day x 6 weeks * Follow up with [facility] Orthopedics in 2 weeks: 08/29/23 11:30 [facility] [place] Orthopedic SurgeonsLake Poon PA-C * --you will also have your first out patient PT eval on the day of your post op appt-so please plan on being in the office that day for an extended period of time. <[place] PA-C - Last Filed: 08/15/23 09:16>
[2023-08-15 06:21] LABS: Basophils Percent Auto 0.4 % (0-2); Eosinophils Absolute Auto 0.3 X10*3/uL (0.0-0.4); Eosinophils Percent Auto 3.4 % (0-4); Hematocrit 30.5 % (42.0-52.0); Hemoglobin 10.5 g/dl (14.0-18.0); Imm Gran Abs Auto 0.04 X10*3/uL (0.00-0.03); Imm Gran Pct Auto 0.4 % (0.0-0.4); Lymphocytes Percent Auto 10.2 % (20-40); Mean Corpuscular HGB Conc 34.4 g/dl (31.0-36.0); Mean Corpuscular Hemoglobin 32.2 pg (27.0-33.0); Mean Corpuscular Volume 93.6 fL (80.0-98.0); Mean Platelet Volume 10.4 fL (9.4-12.4); Monocytes Absolute Auto 0.7 X10*3/uL (0.1-1.2); Monocytes Percent Auto 7.4 % (2-11); Neutrophils Absolute Auto 7.5 x10*3/uL (2.0-8.3); Neutrophils Percent Auto 78.2 % (45-73); Platelet Count 125 X10*3/uL (160-400); Red Blood Count 3.26 X10*6/uL (4.60-5.80); Red Cell Distribution Width 12.1 % (11.0-16.0); White Blood Count 9.5 X10*3/uL (4.8-10.8)
[2023-08-15 06:35] LABS: Anion Gap 11 (12-20); Blood Urea Nitrogen 10 mg/dL (9-16); Calcium 8.6 mg/dL (8.4-10.2); Carbon Dioxide 25 mmol/L (22-29); Chloride 107 mmol/L (96-108); Creatinine Clr Calc Pharmacy 87.7; Estimated Glomerular Filt Rate > 60; Glucose Fasting 193 mg/dL (60-99); Potassium 4.1 mmol/L (3.3-5.1); Sodium 139 mmol/L (135-145)
[2023-08-15 07:14] VITALS: BP 133/62; PULSE 90; RESP 20; TEMP 37.1; O2SAT 99
[2023-08-15 07:30] LABS: Glucose, Whole Blood 168 mg/dL (60-115)
[2023-08-15] MEDS: Insulin Lispro 100 UNIT/ML 3 ML VIAL SUBCUT ×2 (08:13→12:19)
[2023-08-15] MEDS: Finasteride 5 MG TABLET PO (08:16)
[2023-08-15] MEDS: Losartan Potassium 50 MG TABLET PO (08:16)
[2023-08-15] MEDS: Celecoxib 200 MG CAPSULE PO (08:16)
[2023-08-15] MEDS: oxyCODONE HCl ER 10 MG TAB.ER.12H PO (08:16)
--- NOTE | 2023-08-15 08:42 | MHC.CM.PN ---
DCP: HOME WITH [facility] FOR HOME PT. TO TRANSPORT PT MAY BE CLEARED TO DC TODAY
[2023-08-15] MEDS: Aspirin 325 MG TABLET PO (08:54)
--- NOTE | 2023-08-15 09:14 | P.DS_ITS ---
DS: Providers Provider Date of Service: 08/15/23 Primary care physician: John Gonzales MD Consults: 08/13/23 14:04 Consult to Hospitalist Routine Comment: Consulting Provider: Hospitalist Reason For Exam: Diabetes DS: Diagnosis Discharge Diagnosis (1) Status post total knee replacement, right: Status: Acute DS: Summary Hospital Course Hospital Course: The patient underwent a successful Right total knee arthroplasty on 08/13/23, was transferred to PACU and then to the floor to recover. During their stay, their vitals were stable, afebrile at 988.8. Labs were unremarkable, H/H 10.5/30.5. POD 1 he was started on Aspirin for DVT ppx, they also received Physical Therapy services twice a day. Physical therapy should include gait training, ROM to tolerance and quad strength. He is WBAT. Prior to discharge, his dressing was changed, incision clean dry and intact, new Aquacel dressing applied. The Aquacel dressing should remain intact and dry at all times. Any concerns with the dressing, please contact orthopedic office. No showering. The plan is to be discharged home with [facility] Time Attestation Discharge coordination time: Less than 30 minutes Quality: Safe Use of Opioids Does Pt have an Active Cancer Diagnosis on the Problem List?: No Quality: Stroke Does the patient have a stroke diagnosis?: No Physical Exam Vital Signs: Vital Signs: Last Vital Signs Temp 98.8 F 08/15/23 07:14 Pulse 90 08/15/23 07:14 Resp 20 08/15/23 07:14 BP 133/62 08/15/23 07:14 Pulse Ox 99 08/15/23 07:14 O2 Del Method Room Air 08/15/23 07:14 O2 Flow Rate 2 08/13/23 14:10 BMI result Body Mass Index 29.1 DS: Data Data Completed and Pending Pending studies at discharge: Pending at discharge 08/13/23 12:20 Surgical [PTH] Routine Labs on day of discharge: Laboratory Results - last 24 hr 08/14/23 08/14/23 08/14/23 11:08 15:56 19:38 WBC RBC Hgb Hct MCV MCH MCHC RDW Plt Count MPV Immature Gran % (Auto) Neut % (Auto) Lymph % (Auto) [place] % (Auto) Eos % (Auto) Baso % (Auto) Lymph # (Auto) [place] # (Auto) Eos # (Auto) Baso # (Auto) Abs Immat Gran (auto) Absolute Neuts (auto) Absolute Nucleated RBC Nucleated RBC % (auto) Sodium Potassium Chloride Carbon Dioxide Anion Gap BUN Creatinine Estim Creat Clear Calc Estimated GFR POC Glucose 170 H 180 H 180 H Fasting Glucose Calcium 08/15/23 08/15/23 06:04 07:17 WBC 9.5 RBC 3.26 L Hgb 10.5 L Hct 30.5 L MCV 93.6 MCH 32.2 MCHC 34.4 RDW 12.1 Plt Count 125 L MPV 10.4 Immature Gran % (Auto) 0.4 Neut % (Auto) 78.2 H Lymph % (Auto) 10.2 L [place] % (Auto) 7.4 Eos % (Auto) 3.4 Baso % (Auto) 0.4 Lymph # (Auto) 1.0 L [place] # (Auto) 0.7 Eos # (Auto) 0.3 Baso # (Auto) 0.0 Abs Immat Gran (auto) 0.04 H Absolute Neuts (auto) 7.5 Absolute Nucleated RBC 0.000 Nucleated RBC % (auto) 0.0 Sodium 139 Potassium 4.1 Chloride 107 Carbon Dioxide 25 Anion Gap 11 L BUN 10 Creatinine 0.86 Estim Creat Clear Calc 87.7 Estimated GFR > 60 POC Glucose 168 H Fasting Glucose 193 H Calcium 8.6 Discharge Plan Discharge Patient Disposition: Home, Self-Care Referrals: Kimmy [Outside] (Kimmy MCCORMICKA will contact you directly to arrange start of care ) [place] PA-C [Physician Flow Specialist] - 2 Weeks (08/29/23 11:30 [facility] [place] Orthopedic Surgeons [place] PA-C) Discharge Medications: New celecoxib 200 mg Capsule 200 mg PO BID 30 Days Qty: 60 0RF acetaminophen 325 mg Tablet 650 mg PO Q6H PRN (Reason: Pain, Mild (Pain Scale 1-3)) 30 Days Qty: 240 0RF aspirin 325 mg Tablet 325 mg PO BID 42 Days Qty: 84 0RF oxycodone 5 mg tablet 5 mg PO Q4-6H PRN (Reason: pain (scale score 4-6)) Qty: 42 0RF Rx Instructions: Partial Fill upon patient request. ondansetron 8 mg tablet,disintegrating 8 mg PO BID 5 Days Qty: 10 0RF Continued epinephrine [EpiPen 2-Mo] 0.3 mg/0.3 mL auto-injector 0.3 mg IM Q4H PRN (Reason: anaphylaxis) 30 Days Qty: 2 4RF glipizide 10 mg tablet extended release 24hr 10 mg PO DAILY losartan 25 mg tablet 50 mg PO DAILY finasteride 5 mg tablet 5 mg PO DAILY valacyclovir 500 mg tablet 500 mg PO DAILY tamsulosin 0.4 mg capsule 0.4 mg PO DAILY pravastatin 20 mg tablet 20 mg PO DAILY Patient Comments: pt sts unkniwn when took this med last ran out gabapentin 300 mg capsule 300 mg PO BEDTIME 30 Days Qty: 30 3RF Discontinued ibuprofen 800 mg tablet 800 mg PO Q8H PRN (Reason: pain) 30 Days Qty: 90 1RF No Action (DME) walker Misc See Rx Instructions .ROUTE .MEDSUPPLY Qty: 1 0RF Rx Instructions: Folding front wheeled walker Discharge Orders: Discharge Order (Routine); Ordered 08/15/23 Ordered By: Summer Solomon Diet: Regular diet Activity on Discharge: Use cane or walker Activity Restrictions/Additional Instructions: Physical Therapy for Total knee arthroplasty: WBAT, gait training, ROM 0-12, quad strength * Limit stair climbing * No showering, no tub bath-keep dressing clean, dry and intact * No driving x6 weeks * Continue Aspirin twice a day x 6 weeks * Follow up with [facility] Orthopedics in 2 weeks: 08/29/23 11:30 [facility] [place] Orthopedic SurgeonsLake Poon PA-C * --you will also have your first out patient PT carlee on the day of your post op appt-so please plan on being in the office that day for an extended period of time. Discharge Date/Time: 08/15/23 15:26
--- NOTE | 2023-08-15 09:14 | W.MHC.F2F ---
Service Date Service Date: 08/15/23 Encounter Date of encounter: 08/15/23 Reasons for Services Signs and symptoms assessed: Pt. is considered homebound due to recent surgery. Unable to drive, poor balance, poor gait mechanics. s/p RTKA Reason for physical therapy: home safety and mobility, therapeutic exercises, restore joint function, gait/transfer training, assess need for DME and ADL training Homebound: Leaving the home is medically contraindicated at this time without the asist of a device and/or another person due th the listed conditions above and below. Reason homebound: unsteady gait / fall risk, leg weakness, pain with ambulation, pain with transfers, poor balance / fall risk and unable to drive Certification: Based on the above findings, I certify that this patient is confined to the home and needs intermittent care home care, physical therapy and/or speech therapy, or continues to need occupational therapy. The patient is under my care, and I have initiated the establishment of the plan of care. The patient will be followed by a physician who will periodically review the plan of care. Time Spent With Patient Time: Total time managing care of this patient today ____ minutes.
[2023-08-15 11:36] LABS: Glucose, Whole Blood 170 mg/dL (60-115)
[2023-08-15] MEDS: oxyCODONE HCl Immed Release 5 MG TABLET 10 MG PO (15:13)
== END 2023-08-15 15:26 | disposition home or self-care (01) ==
LOC: HO.SSS 15:43 → HO.S3 15:43
PROVIDERS: Physician Assistant; PCP Family Medicine; Visit Provider Orthopaedic Surgery
PROC: (CPT 27447; principal; 2023-08-13 09:40)
DX: M17.11 Unilateral primary osteoarthritis, right knee (principal); M25.561 Pain in right knee; Z87.828 Personal history of other (healed) physical injury and trauma; E11.9 Type 2 diabetes mellitus without complications; I10 Essential (primary) hypertension; E78.00 Pure hypercholesterolemia, unspecified; Z79.84 Long term (current) use of oral hypoglycemic drugs; Z79.899 Other long term (current) drug therapy; Z88.5 Allergy status to narcotic agent; Z98.890 Other specified postprocedural states; Z87.891 Personal history of nicotine dependence
CPT/HCPCS: 27447; 36415; 73560; 80048; 82947; 83036; 85014; 85018; 85025; 86850; 86900; 86901; 87640; 87641; 88305; 88311; 93005; 97110; 97116; 97162; 97530; C1776; J0131; J0690; J1170; J2250; J2405; J2795

== ENCOUNTER → 2023-08-13 06:59 | Outpatient (BNV) | payer MEDICARE, SELFPAY | PROVIDERS: Admitting Provider Physician Assistant; PCP Family Medicine; Visit Provider Orthopaedic Surgery | DX: Z96.651 Presence of right artificial knee joint (principal) | CPT/HCPCS: 27447; 99024 ==

== ENCOUNTER → 2023-08-13 06:59 | Outpatient (BNV) | payer OTHER, MEDICARE, SELFPAY | PROVIDERS: PCP Family Medicine; Visit Provider Nurse Practitioner Acute Care | DX: M25.561 Pain in right knee (principal) | CPT/HCPCS: 99221 ==

== ENCOUNTER 2023-08-29 11:26 | Outpatient (AMB) | payer OTHER, SELFPAY ==
--- NOTE | 2023-08-29 11:33 | A.OFFVIS_ITS ---
Intake Intake Visit Reasons: PO-RT TKA 08/13/23 NE Intake Note: Nadir a 67 year old male presents today for a post operative right TKA, DOS 08/13/23 NE. Patient reports he is doing well, he has intermittent mild pain. States most discomfort at night and working with PT. Allergies bee pollen [bee stings] Allergy (Severe, Verified 08/29/23 11:48) Anaphylaxis codeine Adverse Reaction (Intermediate, Verified 08/29/23 11:48) Vomiting HPI PO-RT TKA 08/13/23 NE HPI Details 67-year-old male who returns to the [facility] today for post-op right TKA, 08/13/[address] Cardoso. He states he has mild pain in his knee and he does c/o discomfort at night and when working with physical therapy. He is doing well otherwise and has no other concerns today. [facility] Medical History (Updated 08/23/23 @ 00:03 by Mihaela Mane) Right knee pain BPH (benign prostatic hyperplasia) Osteoarthritis Dermatofibroma Tubular adenoma Diverticulosis History of benign prostatic hyperplasia Elevated cholesterol HTN (hypertension) Diabetes Surgical History H/O colonoscopy History of open reduction and internal fixation (ORIF) procedure History of appendectomy Family History Father CVD (cardiovascular disease) Cancer of prostate Mother Diabetes Brother No problems noted. Brother No problems noted. Sister No problems noted. Son No problems noted. Son No problems noted. 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 No erythema. Mild swelling of the knee. ROM is 0-85 degrees. He able to initiate SLR with no defect over the quad tendon. Calf supple, nontender. NVI. Assessment & Plan Assessment & Plan (1) Status post total knee replacement, right: Code(s): Z96.651 - Presence of right artificial knee joint Plan Marianna removed, steri strips applied. He will begin to transition to Outpatient PT to continue working on Gait training, ROM and quad strength. No driving for another 4 weeks. He will require ppx abx for dental procedures. He will f/u in 4 weeks, sooner if needed. Orders: Orders PT Evaluation and Treatment 08/28/23 Z96.651 - Presence of right artificial knee joint Patient Instructions: Scribed for Lake Poon PA-C, by Primitivo Vides biomedical engineering supervisor, on 08/29/2023 at 11:30 AM EST. I, [place] Poon PA-C, have personally reviewed and agree with the information entered by the scribe. Coding Level of Care Code Global (05704) Diagnoses Status post total knee replacement, right Z96.651
== END 2023-08-29 12:32 | disposition home or self-care (01) ==
PROVIDERS: PCP Family Medicine; Visit Provider Physician Assistant
DX: Z96.651 Presence of right artificial knee joint (principal)
CPT/HCPCS: 99024

== ENCOUNTER → 2023-08-29 11:26 | Outpatient (BNVA) | payer OTHER, SELFPAY | PROVIDERS: PCP Family Medicine; Visit Provider Physician Assistant | DX: Z96.651 Presence of right artificial knee joint (principal) ==

== ENCOUNTER 2023-09-09 08:29 | Outpatient (AMB) | payer MEDICARE, SELFPAY ==
--- NOTE | 2023-09-09 08:30 | MHC.PC.OV ---
Vital Signs 09/09/23 08:52 Height 5 ft 7 in Weight 182 lb 6 oz BMI 28.6 BP 152/86 H Blood Pressure Location Lt brachial Position Sitting Respiration 12 Pulse 86 Pulse Source Pulse Oximeter Pulse Oximetry (%) 96 Oxygen Delivery Method Room Air Intake Visit Reasons: f/u diabetes, hypertension, hyperlipidemia Intake Note: Patient is here to follow up for DM, HTN, and hyperlipidemia. Patient is accompanied by his spouse, Zuly. Patient would like to request an epipen, gabapentin 600mg at night and glipizide 2.5 mg. Patient reports he had a total knee replacement on 08/13/23 and during the hospital visit he was taking 7.5mg of glipizide. Patient reports he has not received the pravastatin prescribed and would like to request 90 day supply on all medications. Patient has noted a possible allergic reaction to an unknown cause. Patient has been taking benedryl for lip swelling and tongue swelling. Tongue is swollen currently. Airways Control Specialist Required: No Accompanied by: Spouse Allergies bee pollen [bee stings] Allergy (Severe, Verified 09/09/23 08:57) Anaphylaxis codeine Adverse Reaction (Intermediate, Verified 09/09/23 08:57) Vomiting Tobacco use date assessed: 07/19/23 HPI f/u diabetes, hypertension, hyperlipidemia HPI Details 67 y/o male presents to f/u diabetes, hypertension and hyperlipidemia. Tongue?swelling?on?left?side?and?lip. They report benadryl has been working. Diabetes A1c?6.7%?at?last?check?almost?2?months?ago They note his blood sugars have been doing fine, highest 143 but have been in the 80s to low 100s. Hypertension?blood?pressure?is?high?today?152/86?on?losartan Hyperlipidemia S/p?right?total?knee?replacement?a?month?ago HPI Comments History of Present Illness Details Documentation assistance for John Gonzales MD, was provided by Jl Child,? Sweatband Cutting Machine Operator on 09/09/2023 8:38 AM EST. I, Dr. Gonzales, have read, observed, and verified documentation.? [facility] Medical History (Updated 09/09/23 @ 08:59 by John Gonzales MD) Right knee pain BPH (benign prostatic hyperplasia) Osteoarthritis Dermatofibroma Tubular adenoma Diverticulosis History of benign prostatic hyperplasia Elevated cholesterol HTN (hypertension) Diabetes Surgical History H/O colonoscopy History of open reduction and internal fixation (ORIF) procedure History of appendectomy Family History Father CVD (cardiovascular disease) Cancer of prostate Mother Diabetes Brother No problems noted. Brother No problems noted. Sister No problems noted. Son No problems noted. Son No problems noted. 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 Nik Hills, Janelle Dang, Danny Romo and colleagues, with an educational tiffanie from [employer]. Review of Systems Const Denies chills, Denies fatigue, Denies fever(s), Denies headache(s) and Denies weakness ENT Denies dizziness and Denies headache(s) Card Denies dyspnea Resp Denies cough, Denies dyspnea, Denies wheezing and Denies other (shortness of breath) Musc Denies numbness and Denies tingling Neuro Denies dizziness, Denies headache(s), Denies numbness, Denies tingling and Denies weakness Psych Denies anxiety and Denies depression Endo Denies fatigue Aller/Immun Denies wheezing Physical exam (Primary Care) Vital Signs: Last Vital Signs Pulse 86 09/09/23 08:52 Resp 12 09/09/23 08:52 BP 152/86 H 09/09/23 08:52 Pulse Ox 96 11/27/23 08:52 Oxygen Delivery Method Room Air 09/09/23 08:52 BMI result Body Mass Index 28.6 Tobacco/Smoking Status: Tobacco use Status Tobacco use date assessed 07/19/23 09/09/23 08:32 Patient Tobacco Use Status Former Tobacco user 09/09/23 08:32 Tobacco use type Cigarette 09/09/23 08:32 e-Cigarette/Vaping Use Never Used 09/09/23 08:32 Thrive Assessment: Date of Thrive Assessment Date Thrive assessed 08/14/23 09/09/23 08:32 Const General: well developed; No acute distress Nutritional Appearance: well nourished Orientation/consciousness: patient oriented x3 HENMT Head: Yes normocephalic and Yes atraumatic Eyes General: appearance normal, both eyes and all related structures Pupils: Equal, round and reactive pupils present EOM: EOMs intact bilaterally Resp Effort & Inspection: normal respiratory effort Auscultation: clear to auscultation bilaterally Cardio Rate: regular rate Rhythm: regular rhythm Heart sounds: S1 normal heart sound present, S2 normal heart sound present, no gallops, no murmurs and no rubs Neuro General: patient oriented x3 and gait normal Cranial nerves: Yes Equal, round and reactive pupils present Psych Affect: normal affect Assessment and Plan Assessment & Plan (1) Mild tongue swelling: Code(s): R22.0 - Localized swelling, mass and lump, head Plan: Take?Benadryl?50?mg?Q?8?hours?as?needed Cool?compresses?and?cold?water If?worsening?swelling?or?swallowing?difficulty,?or?any?breathing?difficulties,?use?EpiPen?and?go?to?ED Watch?for?trigger?medications?or?exposures. Discuss?new?medications?prescribed?by?Ortho.??Patient?will?discuss?stopping?Celebrex?and?aspirin. (2) Diabetes type 2, controlled: Code(s): E11.9 - Type 2 diabetes mellitus without complications Plan: Blood?sugars?well?controlled?by?his?logs?from?home. Continue?current?medication?regimen Due?for?A1c?in?October Continue?to?titrate?down?glipizide?2.5?mg?tablets,?currently?at?7.5?mg?each?afternoon.??Continue?glipizide?ER?10?mg?in?the?morning. (3) Essential (primary) hypertension: Code(s): I10 - Essential (primary) hypertension Plan: Blood?pressure?high?today.??Patient?has?recent?stressors He?can?take?an?additional?half?tablet?of?losartan?if?needed. (4) Hyperlipidemia: Code(s): E78.5 - Hyperlipidemia, unspecified Plan: Has?not?had?his?pravastatin?which?will?was?send?again. He?will?get?his?lipids?checked?prior?to?next?visit.??LDL?goal?is?less?than?100?for?patient?with?diabetes (5) Total knee replacement status: Code(s): Z96.659 - Presence of unspecified artificial knee joint Plan: Healing?well (6) Immunization counseling: Code(s): Z71.85 - Encounter for immunization safety counseling Plan: Advised?new?COVID?shot?and?high-dose?flu?shot Medications: New glipizide ER Take in afternoon. Weaning/Titrating Down. 7.5 mg (3 x 2.5 mg) PO DAILY 270 tabs 1RF 90 days Changed From gabapentin 300 mg PO BEDTIME 30 days 30 caps 3RF To gabapentin 300 mg PO BID 90 days PRN 180 caps 3RF pain From glipizide ER 20 mg (2 x 10 mg) PO DAILY 90 days 180 tabs 2RF To glipizide ER 10 mg PO DAILY 90 tabs 2RF 90 days Refilled epinephrine (EpiPen 2-Mo) 0.3 mg (0.3 mL) IM Q4H 30 days PRN 2 ea 4RF anaphylaxis pravastatin 20 mg PO DAILY 90 days 90 tabs 3RF Coding Level of Care Code Est Pt Level 4 (94415) Diagnoses Mild tongue swelling R22.0 Diabetes type 2, controlled E11.9 Essential (primary) hypertension I10 Hyperlipidemia E78.5 Total knee replacement status Z96.659 Immunization counseling Z71.85
[2023-09-09 08:52] VITALS: BP 152/86; PULSE 86; RESP 12; O2SAT 96; BMI 28.6
== END 2023-09-09 09:35 | disposition home or self-care (01) ==
PROVIDERS: PCP Family Medicine; Visit Provider Family Medicine
DX: R22.0 Localized swelling, mass and lump, head (principal); E11.9 Type 2 diabetes mellitus without complications; I10 Essential (primary) hypertension; E78.5 Hyperlipidemia, unspecified; Z96.659 Presence of unspecified artificial knee joint; Z71.85 Encounter for immunization safety counseling
CPT/HCPCS: 99214

== ENCOUNTER 2023-09-23 08:17 | Outpatient (AMB) | payer OTHER, SELFPAY ==
--- NOTE | 2023-09-23 08:23 | MHC.OFFVIS ---
Intake Vital Signs 09/23/23 08:31 Height 5 ft 7 in Weight 182 lb BMI 28.5 Intake Visit Reasons: PO- RT TKA 08/13/23 NE Intake Note: Nadir a 67 year old male presents today for a post operative right TKA, DOS 08/13/23 NE. Patient reports he is doing well and would like to know if hes able to drive. Allergies bee pollen [bee stings] Allergy (Severe, Verified 09/23/23 08:36) Anaphylaxis codeine Adverse Reaction (Intermediate, Verified 09/23/23 08:36) Vomiting HPI PO- RT TKA 08/13/23 NE HPI Details 67-year-old male who returns to the office today for post-op right TKA, 08/13/[address] Cardoso. He states he has no pain but he states he has mild swelling in his knee. He continues to work on physical therapy and home exercises as instructed. He would like to discuss is he is able to drive. He is doing well overall and has no other concerns today. [facility] Medical History (Updated 09/09/23 @ 08:59 by John Gonzales MD) Right knee pain BPH (benign prostatic hyperplasia) Osteoarthritis Dermatofibroma Tubular adenoma Diverticulosis History of benign prostatic hyperplasia Elevated cholesterol HTN (hypertension) Diabetes Surgical History H/O colonoscopy History of open reduction and internal fixation (ORIF) procedure History of appendectomy Family History Father CVD (cardiovascular disease) Cancer of prostate Mother Diabetes Brother No problems noted. Brother No problems noted. Sister No problems noted. Son No problems noted. Son No problems noted. 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 No erythema. He still has small amount of swelling in the knee although it is not in the joint. ROM is 5-110 degrees. Calf supple, nontender. NVI. Assessment & Plan Assessment & Plan (1) Total knee replacement status: Code(s): Z96.659 - Presence of unspecified artificial knee joint Qualifiers: Laterality: right Qualified Code(s): Z96.651 - Presence of right artificial knee joint Plan He will continue working on physical therapy to maintain his ROM and work on quad strengthening exercises. I encouraged him to avoid activities going into the winter such as snow blowing or any other impact activities that would put strain on the quad as it heals. I would like to see him back in 6 weeks with new x-rays with Dr. Cardoso, sooner if needed. Patient Instructions: Scribed for [place] Poon PA-C, by Primitivo Vides medical lab assistant, on 09/23/2023 at 8:30 AM EST. I, [place] Poon PA-C, have personally reviewed and agree with the information entered by the scribe. Coding Level of Care Code Global (13576) Diagnoses Status post total right knee replacement Z96.651 Laterality: right
[2023-09-23 08:31] VITALS: BMI 28.5
== END 2023-09-23 09:17 | disposition home or self-care (01) ==
PROVIDERS: PCP Family Medicine; Visit Provider Physician Assistant
DX: Z96.651 Presence of right artificial knee joint (principal)
CPT/HCPCS: 99024

== ENCOUNTER → 2023-09-23 08:17 | Outpatient (BNVA) | payer OTHER, SELFPAY | PROVIDERS: PCP Family Medicine; Visit Provider Physician Assistant | DX: Z47.1 Aftercare following joint replacement surgery (principal); Z96.651 Presence of right artificial knee joint | CPT/HCPCS: 99212 ==

== ENCOUNTER 2023-10-03 13:03 | Outpatient (AMB) | payer MEDICARE, SELFPAY ==
[2023-10-03 13:14] VITALS: BP 133/76; PULSE 70; O2SAT 100; BMI 28.4
--- NOTE | 2023-10-03 13:14 | MHC.PC.OV ---
Vital Signs 10/03/23 13:14 Height 5 ft 7 in Weight 181 lb 6 oz BMI 28.4 BP 133/76 Blood Pressure Location Lt brachial Position Sitting Pulse 70 Pulse Source Pulse Oximeter Pulse Oximetry (%) 100 Oxygen Delivery Method Room Air Intake Visit Reasons: post ortho surgery Intake Note: Patient is here for post surgical visit. Allergies bee pollen [bee stings] Allergy (Severe, Verified 10/03/23 13:15) Anaphylaxis codeine Adverse Reaction (Intermediate, Verified 10/03/23 13:15) Vomiting Tobacco use date assessed: 10/03/23 Fall risk assessment: No Falls in past year Last assessed Fall Risk: 10/03/23 HPI post ortho surgery HPI Details 67 y/o male presents to f/u ortho surgery. Had underwent successful R total knee arthroplasty 08/13/[address] Cardoso. Had followed with orthopedics 08/29/23. Had complaints of mild knee pain and discomfort at night but was otherwise doing well. Blood pressure today 133/76. He is on losartan 50mg daily. Pt reports he has been taking glipizide 12.5mg daily. Pt reports mild tongue swelling improved. [facility] Medical History (Updated 09/09/23 @ 08:59 by John Gonzales MD) Right knee pain BPH (benign prostatic hyperplasia) Osteoarthritis Dermatofibroma Tubular adenoma Diverticulosis History of benign prostatic hyperplasia Elevated cholesterol HTN (hypertension) Diabetes Surgical History H/O colonoscopy History of open reduction and internal fixation (ORIF) procedure History of appendectomy Family History Father CVD (cardiovascular disease) Cancer of prostate Mother Diabetes Brother No problems noted. Brother No problems noted. Sister No problems noted. Son No problems noted. Son No problems noted. 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 Nik Hills, Janelle Dang, Danny Romo and colleagues, with an educational tiffanie from [email or web address]. Review of Systems Const Denies chills, Denies fatigue, Denies fever(s), Denies headache(s) and Denies weakness ENT Denies dizziness and Denies headache(s) Card Denies dyspnea Resp Denies cough, Denies dyspnea, Denies wheezing and Denies other (shortness of breath) Musc Denies numbness and Denies tingling Neuro Denies dizziness, Denies headache(s), Denies numbness, Denies tingling and Denies weakness Psych Denies anxiety and Denies depression Endo Denies fatigue Aller/Immun Denies wheezing Physical exam (Primary Care) Vital Signs: Last Vital Signs Pulse 70 10/03/23 13:14 BP 133/76 10/03/23 13:14 Pulse Ox 100 10/03/23 13:14 Oxygen Delivery Method Room Air 10/03/23 13:14 BMI result Body Mass Index 28.4 Tobacco/Smoking Status: Tobacco use Status Tobacco use date assessed 10/03/23 10/03/23 13:20 Patient Tobacco Use Status Former Tobacco user 10/03/23 13:20 Tobacco use type Cigarette 10/03/23 13:20 e-Cigarette/Vaping Use Never Used 10/03/23 13:20 Thrive Assessment: Date of Thrive Assessment Date Thrive assessed 08/14/23 10/03/23 13:20 Const General: well developed; No acute distress Nutritional Appearance: well nourished Orientation/consciousness: patient oriented x3 HENMT Head: Yes normocephalic and Yes atraumatic Eyes General: appearance normal, both eyes and all related structures Pupils: Equal, round and reactive pupils present EOM: EOMs intact bilaterally Resp Effort & Inspection: normal respiratory effort Auscultation: clear to auscultation bilaterally Cardio Rate: regular rate Rhythm: regular rhythm Heart sounds: S1 normal heart sound present, S2 normal heart sound present, no gallops, no murmurs and no rubs Neuro General: patient oriented x3 and gait normal Cranial nerves: Yes Equal, round and reactive pupils present Psych Affect: normal affect Assessment and Plan Assessment & Plan (1) Total knee replacement status: Code(s): Z96.659 - Presence of unspecified artificial knee joint Qualifiers: Laterality: right Qualified Code(s): Z96.651 - Presence of right artificial knee joint Plan: Pt is S/P right TKA, 08/13/[address] Cardoso. He states he has no pain but he states he has mild swelling in his knee. He continues to work on physical therapy and home exercises as instructed. Good?healing?and?tolerating?exercise?as?well. Continues?to?improve Encouraged?ongoing?exercise?and?follow-up?with?ortho?as?recommended (2) Diabetes type 2, controlled: Code(s): E11.9 - Type 2 diabetes mellitus without complications Plan: Patient?notes?that?his?blood?sugars?continue?to?decrease.??He?is?titrating?down?his?glipizide Has?an?appointment?next?month?to?follow-up?and?check?A1c (3) Essential (primary) hypertension: Code(s): I10 - Essential (primary) hypertension Plan: Blood?pressure?is?controlled.??Goal?is?less?than?140/90 Continue?current?medication (4) Mild tongue swelling: Code(s): R22.0 - Localized swelling, mass and lump, head Plan: This?has?resolved?with?discontinuance?of?Celebrex?and?aspirin Plan He?will?be?due?to?follow-up?hypertension,?diabetes?and?lipids?in?October.??He?will?be?due?for?an?A1c?test. Coding Level of Care Code Est Pt Level 4 (81841) Diagnoses Status post total right knee replacement Z96.651 Laterality: right Diabetes type 2, controlled E11.9 Essential (primary) hypertension I10 Mild tongue swelling R22.0
== END 2023-10-03 13:56 | disposition home or self-care (01) ==
PROVIDERS: PCP Family Medicine; Visit Provider Family Medicine
DX: Z96.651 Presence of right artificial knee joint (principal); E11.9 Type 2 diabetes mellitus without complications; I10 Essential (primary) hypertension; R22.0 Localized swelling, mass and lump, head
CPT/HCPCS: 99214

== ENCOUNTER 2023-10-25 08:39 | Outpatient (AMB) | payer MEDICARE, SELFPAY ==
--- NOTE | 2023-10-25 08:43 | A.OFFPC_ITS ---
Vital Signs 10/25/23 08:49 Height 5 ft 7 in Weight 180 lb BMI 28.2 BP 128/74 Blood Pressure Location Lt brachial Position Sitting Respiration 13 Pulse 78 Pulse Source Pulse Oximeter Pulse Oximetry (%) 96 Oxygen Delivery Method Room Air Intake Visit Reasons: f/u diabetes Intake Note: Patient is here to follow up with diabetic care. Patient has no concerns at this time. 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 Last A1c 07/15/23 6.7%. A1c today 10/25/23 6.8%. He is on glipizide. Blood pressure today 142/72. He is on losartan 50mg daily. BP upon relaxation is 126/74. Pt is s/p total knee replacement. He notes he is able to ambulate but is unable to carry things around the house. He has a f/u on the . [facility] Medical History (Updated 09/09/23 @ 08:59 by John Gonzales MD) Right knee pain BPH (benign prostatic hyperplasia) Osteoarthritis Dermatofibroma Tubular adenoma Diverticulosis History of benign prostatic hyperplasia Elevated cholesterol HTN (hypertension) Diabetes Surgical History H/O colonoscopy History of open reduction and internal fixation (ORIF) procedure History of appendectomy Family History Father CVD (cardiovascular disease) Cancer of prostate Mother Diabetes Brother No problems noted. Brother No problems noted. Sister No problems noted. Son No problems noted. Son No problems noted. 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 Nik Hills, Janelle Dang, Danny Romo and colleagues, with an educational tiffanie from [email or web address]. Review of Systems Const Denies chills, Denies fatigue, Denies fever(s), Denies headache(s) and Denies weakness ENT Denies dizziness and Denies headache(s) Card Denies dyspnea Resp Denies cough, Denies dyspnea, Denies wheezing and Denies other (shortness of breath) Musc Denies numbness and Denies tingling Neuro Denies dizziness, Denies headache(s), Denies numbness, Denies tingling and Denies weakness Psych Denies anxiety and Denies depression Endo Denies fatigue Aller/Immun Denies wheezing Physical exam (Primary Care) Vital Signs: Last Vital Signs Pulse 78 10/25/23 08:49 Resp 13 10/25/23 08:49 BP 142/72 H 10/25/23 08:49 Pulse Ox 96 10/25/23 08:49 Oxygen Delivery Method Room Air 10/25/23 08:49 BMI result Body Mass Index 28.2 Tobacco/Smoking Status: Tobacco use Status Tobacco use date assessed 10/03/23 10/25/23 08:45 Patient Tobacco Use Status Former Tobacco user 10/25/23 08:45 Tobacco use type Cigarette 10/25/23 08:45 e-Cigarette/Vaping Use Never Used 10/25/23 08:45 Thrive Assessment: Date of Thrive Assessment Date Thrive assessed 08/14/23 10/25/23 08:45 Const General: well developed; No acute distress Nutritional Appearance: well nourished Orientation/consciousness: patient oriented x3 HENMT Head: Yes normocephalic and Yes atraumatic Eyes General: appearance normal, both eyes and all related structures Pupils: Equal, round and reactive pupils present EOM: EOMs intact bilaterally Resp Effort & Inspection: normal respiratory effort Auscultation: clear to auscultation bilaterally Cardio Rate: regular rate Rhythm: regular rhythm Heart sounds: S1 normal heart sound present, S2 normal heart sound present, no gallops, no murmurs and no rubs Neuro General: patient oriented x3 and gait normal Cranial nerves: Yes Equal, round and reactive pupils present Psych Affect: normal affect Results AMB Hemoglobin A1c AMB Hemoglobin A1c 6.8 % Last Edit by Nerissa Sears CMA on 10/25/23 09:07 Results Reviewed Results Reviewed: Laboratory Last Values Hgb A1c (Clinic) 6.8 % (4.0-6.0) H 10/25/23 09:02 Assessment and Plan Assessment & Plan (1) Diabetes type 2, controlled: Code(s): E11.9 - Type 2 diabetes mellitus without complications Plan: A1c?increased?slightly?from?6.7 %?to?6.8%.??Still?good?control.??Goal?is?less?than?7.0% Continue?glipizide.??He?is?currently?taking?12.5?mg?daily Continue?diabetic?diet Last?diabetic?eye?exam?was?in?April?2022?and?no?retinopathy Mi ld?callus?on?right?foot.??No?abrasions?or?cracks.??Encouraged?moisturizer?to?pre vent?calluses (2) Essential (primary) hypertension: Code(s): I10 - Essential (primary) hypertension Plan: Blood?pressure?is?well?controlled.??Goal?is?less?than?140/90 Continue?current?medication (3) Total knee replacement status: Code(s): Z96.659 - Presence of unspecified artificial knee joint Qualifiers: Laterality: right Qualified Code(s): Z96.651 - Presence of right artificial knee joint Plan: Still?having?difficulty?getting?his?leg?up?into?his?vehicle. Ambulating?okay?with?a?cane Follow-up?with?ortho?later?this?month He?will?be?due?for?renewal?of?his?handicap?placard?in?November. Orders: Orders AMB Hemoglobin A1c Today E11.9 - Type 2 diabetes mellitus without complications Complete Blood Count Auto Diff Today Z00.00 - Encounter for general adult medical examination without abnormal findings Microalbumin, Random (w Creat) Today I10 - Essential (primary) hypertension Prostate Specific Antigen Scr Today Z12.5 - Encounter for screening for malignant neoplasm of prostate TSH reflex Free T4 Today Z00.00 - Encounter for general adult medical examination without abnormal findings Comprehensive [place]. Panel Fast Today Z00.00 - Encounter for general adult medical examination without abnormal findings Lipid Panel Today Z00.00 - Encounter for general adult medical examination without abnormal findings UA and rflx microscopic Today Z00.00 - Encounter for general adult medical examination without abnormal findings Medications: Changed From glipizide ER Take in afternoon. Weaning/Titrating Down. 7.5 mg (3 x 2.5 mg) PO DAILY 90 days 270 tabs 1RF To glipizide ER Take in afternoon. Weaning/Titrating Down. 2.5 mg PO DAILY 90 tabs 1RF 90 days Coding Level of Care Code Est Pt Level 3 (87833) Diagnoses Diabetes type 2, controlled E11.9 Essential (primary) hypertension I10 Status post total right knee replacement Z96.651 Laterality: right
[2023-10-25 08:49] VITALS: BP 128/74; PULSE 78; RESP 13; O2SAT 96; BMI 28.2
== END 2023-10-25 09:44 | disposition home or self-care (01) ==
PROVIDERS: PCP Family Medicine; Visit Provider Family Medicine
DX: E11.9 Type 2 diabetes mellitus without complications (principal); I10 Essential (primary) hypertension; Z96.651 Presence of right artificial knee joint
CPT/HCPCS: 83036; 99213

== ENCOUNTER 2023-11-01 10:37 | Outpatient (AMB) | payer OTHER, SELFPAY ==
[2023-11-01 10:41] VITALS: BMI 28.2
--- NOTE | 2023-11-01 10:41 | MHC.OFFVIS ---
Intake Vital Signs 11/01/23 10:41 Height 5 ft 7 in Weight 180 lb BMI 28.2 Intake Visit Reasons: PO- RT TKA 08/13/23 NE w/ XR Intake Note: Nadir is a 67 year old male who presents today for a post operative appointent s/p right TKA, DOS 08/13/23 NE. Patient reports that he is doing well with walking and has pain. He has pain with physical therapy, he has crunching and pain with stationary bike, the pain is felt at the top of calf. Although painful, therapy has been helpful he is interested in doing more sessions. He reports that while sleeping on his side, he feels that the patella dislocates. Allergies bee pollen [bee stings] Allergy (Severe, Verified 11/01/23 10:42) Anaphylaxis codeine Adverse Reaction (Intermediate, Verified 11/01/23 10:42) Vomiting HPI PO- RT TKA 08/13/23 NE w/ XR HPI Details Nadir is a 67 year old man who presents ~11 weeks S/P right TKA. He says he is doing well and has less pain than before with walking or other activities. However, he reports increased pain and a crunching sensation with PT, especially using a stationary bicycle. His pain is felt primarily at the top of his calf. Despite this, he is interested in continuing with PT as he feels this is helping him. [facility] Medical History Right knee pain BPH (benign prostatic hyperplasia) Osteoarthritis Dermatofibroma Tubular adenoma Diverticulosis History of benign prostatic hyperplasia Elevated cholesterol HTN (hypertension) Diabetes Surgical History H/O colonoscopy History of open reduction and internal fixation (ORIF) procedure History of appendectomy Family History Father CVD (cardiovascular disease) Cancer of prostate Mother Diabetes Brother No problems noted. Brother No problems noted. Sister No problems noted. Son No problems noted. Son No problems noted. 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 - [employer] Current occupational exposures/hazards: No Cognitive needs: No Hearing needs: No Vision needs: No Review of Systems Const All systems reviewed & are unremarkable except as noted in HPI and below Physical Exam Vital Signs: BMI result Body Mass Index 28.2 Const General: no acute distress, alert and awake Orientation/consciousness: patient oriented x3 HEENT Head: Yes normocephalic and Yes atraumatic Eyes EOM: EOMs intact bilaterally Resp Effort & Inspection: normal respiratory effort and able to speak in complete sentences Cardio Jugular venous distension: no JVD Skin General skin exam: turgor normal Rashes: no rashes Neuro General: patient oriented x3 Extrem Other: 5-120 inc c/d/i no calf ttp posterolateral discomfort with palpation Psych Appearance: grossly normal Affect: normal affect Attitude: cooperative Assessment & Plan Assessment & Plan (1) Total knee replacement status: Code(s): Z96.659 - Presence of unspecified artificial knee joint Qualifiers: Laterality: right Qualified Code(s): Z96.651 - Presence of right artificial knee joint Plan: Nadir is doing well ~3 months post op. He should continue stretching and strengthening. I discussed dental prophylaxis and he should follow up in 3 months because of his worker's comp status. He has not reached full recovery yet but there are no restrictions. Plan Prepared for Lefty Cardoso MD by Nilo Lai, medical coding instructor, on 11/01/23 at 10:48 AM, EST. Coding Level of Care Code Global (15650) Diagnoses Status post total right knee replacement Z96.651 Laterality: right
== END 2023-11-01 11:14 | disposition home or self-care (01) ==
PROVIDERS: PCP Family Medicine; Visit Provider Orthopaedic Surgery
DX: Z96.651 Presence of right artificial knee joint (principal)
CPT/HCPCS: 99024

== ENCOUNTER → 2023-11-01 10:37 | Outpatient (BNVA) | payer OTHER, SELFPAY | PROVIDERS: PCP Family Medicine; Visit Provider Orthopaedic Surgery | DX: Z47.1 Aftercare following joint replacement surgery (principal); Z96.651 Presence of right artificial knee joint | CPT/HCPCS: 99212 ==

== ENCOUNTER 2023-12-06 11:00 | Outpatient (RCR) | payer OTHER, SELFPAY ==
--- NOTE | 2023-09-11 12:35 | MHC.PT.EP ---
[facility] [place] Office [place] Office [place] Office [address] [phone] F: [phone] F: [phone] F: [phone] F: [phone] Physical Therapy Plan of Care Date of Evaluation: 09/11/23 Date of Surgery: 08/13/23 Diagnosis: R TKR Assessment: Pt IS 67 YO M S/P R TKR ON 08/13/[address] MOE. REFERRED TO PT FROM [facility]. PRESENTS WITH LIMITED R KNEE ROM AND LIMITED R LE STRENGTH. WALKS WITH ONE CRUTCH. PAIN AND INFLAMMATION NOTE R KNEE. HEALED SCAR, HEALING BRUISING. SHOULD BENEFIT FROM PT TO ADDRESS THESE ISSUES Frequency and Duration: The patient will be seen 3X/WK X 4 WKS THEN 2X/WK X 4 WKS Short Term Goals: 1. INCREASED AWARENESS KNEE CARE 2. R KNEE ROM 0-105 3. IMPROVED GT (DECREASED LIMP) WITH LRAD/NO AD Senior Living Goals: 1. I HEP WITH DC EX PLAN 2. DECREASED R KNEE PAIN AT LEAST 50% WITH ADLS 3. R KNEE ROM 0-120 Treatment Plan: Modalities to reduce pain, spasms and effusion. Manual therapy to restore motion and function. Therapeutic exercise to improve strength and flexibility. Neuromuscular re-education for posture and balance. Therapeutic activities to return to functional activities of daily living. Electronically signed by: ARIADNA COREAS PT Please sign and return to therapist. Thank you for your referral.
--- NOTE | 2023-12-17 08:19 | MHC.PT.DC ---
[facility] [place] Office [place] Office [place] Office [address] Belle Gonzalez [address] [phone] F: [phone] F: [phone] F: [phone] F: [phone] Physical Therapy Discharge Report Diagnosis: R TKR Date of Surgery: 08/13/23 Date of Evaluation: 09/11/23 Date of Discharge: 12/06/23 Treatments to Date: 20 Cancellations to Date: No Shows to Date: Discharge Status: Achieved Goals Improved Function Independent with HEP Recommend MD Follow-up Discharge Summary: PER ASSESSMENT AT LAST VISIT BY LORENZO CORNEJO PT,DPT 12/06/23: Pt AROM 0 to 120 degrees. Pt has met goals with PT. Denies further questions at this time and reports he is doing well overall. Has been working on things around the home and has resumed climbing ladders. Can squat with good ability. Has DC use of assistive device. Pt expressing reciprocal stair climbing more consistently overall greater ease with ascending> descending. D/C pt to [facility]. Pt has another appt with Dr. Cardoso on 01/02/24. Pt has not returned to work but has no restrictions at this time. (see Dr. Cardoso note above). Electronically signed by: ARIADNA COREAS PT Please sign and return to therapist. Thank you for your referral.
== END 2023-12-17 08:20 | disposition home or self-care (01) ==
LOC: HO.PTWFD 11:00
PROVIDERS: PCP Family Medicine; Visit Provider Physician Assistant
DX: Z96.651 Presence of right artificial knee joint (principal)
CPT/HCPCS: 97110; 97140; 97150; 97161; 97530; 97535

== ENCOUNTER 2024-01-02 08:16 | Outpatient (REF) | payer OTHER, SELFPAY ==
--- NOTE | ~2024-01-02 | XR_ITS ---
EXAMINATION: XR KNEE, RIGHT CLINICAL INFORMATION: Pain in unspecified knee. COMPARISON: Right knee radiograph of 08/13/2023. TECHNIQUE: AP standing view of bilateral knees. Lateral and 2 sunrise views of the right knee. FINDINGS: RIGHT KNEE: Redemonstration of total knee arthroplasty with patellar resurfacing in anatomic position. Hardware appears intact. Moderate suprapatellar effusion. Redemonstration of increased calcific/ossific fragments along the inferior aspect of the patella on the lateral view. LEFT KNEE: AP sitting view of the left knee demonstrates mild narrowing of the medial and lateral compartments with tiny marginal osteophytes. XR/XR knee RT 3V IMPRESSION: 1. Right total knee arthroplasty in anatomic position. Hardware appears intact. 2. Moderate suprapatellar effusion.
== END 2024-01-02 08:17 | disposition home or self-care (01) ==
LOC: HO.HOSX 08:16
PROVIDERS: Visit Provider Orthopaedic Surgery
DX: Z96.651 Presence of right artificial knee joint (principal)
CPT/HCPCS: 73562; 99212

== ENCOUNTER 2024-01-02 08:23 | Outpatient (AMB) | payer OTHER, SELFPAY ==
--- NOTE | 2024-01-02 08:24 | MHC.OFFVIS ---
Intake Vital Signs 01/02/24 08:39 Height 5 ft 7 in Weight 180 lb BMI 28.2 Intake Visit Reasons: OV-RT TKA 08/13/23 NE w/ XR Intake Note: Nadir is a 67 year old male who presents today for a post operative appointment s/p right TKA, DOS 08/13/23 NE. WC - He has not reached full recovery yet but there are no restrictions. Patient reports that he is doing well, he continues to have numbness on the lateral aspect of the knee and some swelling in the posterior aspect of the knee. This swelling does limit some of his ROM . Allergies bee pollen [bee stings] Allergy (Severe, Verified 01/02/24 08:41) Anaphylaxis codeine Adverse Reaction (Intermediate, Verified 01/02/24 08:41) Vomiting HPI OV-RT TKA 08/13/23 NE w/ XR HPI Details Nadir is a 67 year old male who presents today for a post operative appointment s/p right TKA, DOS 08/13/23 NE. WC - He has not reached full recovery yet but there are no restrictions. Patient reports that he is doing well, he continues to have numbness on the lateral aspect of the knee and some swelling in the posterior aspect of the knee. He is able to squat and overall feels like he is continuing to get stronger and feel better. [facility] Medical History Right knee pain BPH (benign prostatic hyperplasia) Osteoarthritis Dermatofibroma Tubular adenoma Diverticulosis History of benign prostatic hyperplasia Elevated cholesterol HTN (hypertension) Diabetes Surgical History H/O colonoscopy History of open reduction and internal fixation (ORIF) procedure History of appendectomy Family History Father CVD (cardiovascular disease) Cancer of prostate Mother Diabetes Brother No problems noted. Brother No problems noted. Sister No problems noted. Son No problems noted. Son No problems noted. 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 - [employer] Current occupational exposures/hazards: No Cognitive needs: No Hearing needs: No Vision needs: No Physical Exam Vital Signs: BMI result Body Mass Index 28.2 Extrem Other: 0-105 deg motion inc c/d/i stable arc of motion nl gait Results Reviewed Results Reviewed: Right total knee arthroplasty in expected post operative position with no hardware complications or evidence of loosening Assessment & Plan Assessment & Plan (1) Total knee replacement status: Code(s): Z96.659 - Presence of unspecified artificial knee joint Qualifiers: Laterality: right Qualified Code(s): Z96.651 - Presence of right artificial knee joint Plan: Nadir is doing well. Continue strengthening and activity as tolerated. May folow up at 1-2 year post op or if there are any problems. Orders: Orders XR knee standing BI Today M25.569 - Pain in unspecified knee Coding Level of Care Code Est Pt Level 3 (53622) Diagnoses Status post total right knee replacement Z96.651 Laterality: right
[2024-01-02 08:39] VITALS: BMI 28.2
== END 2024-01-02 09:35 | disposition home or self-care (01) ==
PROVIDERS: PCP Family Medicine; Visit Provider Orthopaedic Surgery
DX: Z47.1 Aftercare following joint replacement surgery (principal); Z96.651 Presence of right artificial knee joint
CPT/HCPCS: 99213

== ENCOUNTER 2024-01-13 07:59 | Outpatient (REF) | payer MEDICARE, SELFPAY ==
[2024-01-13 08:10] LABS: MANUAL DIFF FLAG NO
[2024-01-13 08:44] LABS: Basophils Percent Auto 0.6 % (0-2); Eosinophils Absolute Auto 0.1 X10*3/uL (0.0-0.4); Hematocrit 45.2 % (42.0-52.0); Hemoglobin 15.6 g/dl (14.0-18.0); Imm Gran Abs Auto 0.01 X10*3/uL (0.00-0.03); Imm Gran Pct Auto 0.2 % (0.0-0.4); Lymphocytes Absolute Auto 1.8 X10*3/uL (1.2-4.9); Lymphocytes Percent Auto 34.8 % (20-40); Mean Corpuscular HGB Conc 34.5 g/dl (31.0-36.0); Mean Corpuscular Hemoglobin 30.7 pg (27.0-33.0); Mean Platelet Volume 10.5 fL (9.4-12.4); Monocytes Absolute Auto 0.4 X10*3/uL (0.1-1.2); Neutrophils Absolute Auto 2.7 x10*3/uL (2.0-8.3); Neutrophils Percent Auto 54.4 % (45-73); Platelet Count 186 X10*3/uL (160-400); Red Blood Count 5.08 X10*6/uL (4.60-5.80); Red Cell Distribution Width 12.5 % (11.0-16.0)
[2024-01-13 09:20] LABS: Alanine Aminotransferase 18 U/L (0-40); Albumin Level 4.4 g/dL (3.5-5.0); Alkaline Phosphatase 59 U/L (39-117); Anion Gap 12 (12-20); Aspartate Amino Transferase 13 U/L (5-37); Blood Urea Nitrogen 16 mg/dL (9-16); Calcium 9.5 mg/dL (8.4-10.2); Carbon Dioxide 28 mmol/L (22-29); Chloride 109 mmol/L (96-108); Cholesterol 157 mg/dL (<200); Estimated Glomerular Filt Rate > 60; Glucose Fasting 140 mg/dL (60-99); HDL Cholesterol 51 mg/dL (>40); LDL Cholesterol Calculated 88 mg/dL (<100); Microalbumin Urine < 5.0 mg/L; Potassium 4.7 mmol/L (3.3-5.1); Sodium 144 mmol/L (135-145); Total Protein 7.1 g/dL (6.5-8.0); Triglycerides 92 mg/dL (<150)
[2024-01-13 09:26] LABS: Appearance Urine Clear; Color Urine Yellow; Glucose Urine UA Negative (Negative); Leukocyte Esterase Urine Negative (Negative); Nitrite Urine Negative (Negative); PH 5.5 (5.0-9.0); Specific Gravity - Urine 1.015 (1.005-1.025); Urine Blood Negative (Negative); Urine Ketones Negative (Negative); Urine Protein Negative (Neg-Trace)
[2024-01-13 09:35] LABS: Prostate Specific Antigen Scr 0.95 ng/mL (<0.05-4.0)
[2024-01-13 09:39] LABS: TSH reflex Free T4 1.83 uIU/mL (0.32-4.0)
== END 2024-01-13 08:00 | disposition home or self-care (01) ==
LOC: HO.LAB 07:59
PROVIDERS: PCP Family Medicine; Visit Provider Family Medicine
DX: Z00.00 Encounter for general adult medical examination without abnormal findings (principal); I10 Essential (primary) hypertension; E11.9 Type 2 diabetes mellitus without complications; E78.00 Pure hypercholesterolemia, unspecified; Z12.5 Encounter for screening for malignant neoplasm of prostate
CPT/HCPCS: 36415; 80053; 80061; 81003; 82043; 82570; 84153; 84443; 85025

== ENCOUNTER 2024-01-14 14:01 | Outpatient (AMB) | payer MEDICARE, SELFPAY ==
[2024-01-14 14:04] VITALS: BP 120/68; PULSE 83; O2SAT 98; BMI 27.2
--- NOTE | 2024-01-14 14:04 | A.OFFPC_ITS ---
Vital Signs 01/14/24 14:04 Height 5 ft 7 in Weight 174 lb BMI 27.2 BP 120/68 Blood Pressure Location Lt brachial Position Sitting Pulse 83 Pulse Source Pulse Oximeter Pulse Oximetry (%) 98 Oxygen Delivery Method Room Air Intake Visit Reasons: CPE with f/u labs and health maint. Intake Note: Patient is here today for his physical today. Allergies bee pollen [bee stings] Allergy (Severe, Verified 01/14/24 14:07) Anaphylaxis codeine Adverse Reaction (Intermediate, Verified 01/14/24 14:07) Vomiting Medication List - Last Reconciled 01/14/24 by John Gonzales MD acetaminophen 650 mg (2 x 325 mg) PO Q6H PRN 30 days docusate sodium (Colace) 100 mg PO BID 30 days epinephrine (EpiPen 2-Mo) 0.3 mg (0.3 mL) IM Q4H PRN 30 days finasteride 5 mg PO DAILY gabapentin 300 mg PO BID PRN 90 days glipizide ER 2.5 mg PO DAILY 90 days glipizide ER 12.5 mg PO DAILY losartan 50 mg PO DAILY ondansetron 8 mg PO BID 5 days pravastatin 20 mg PO DAILY 90 days rivaroxaban (Xarelto) 2.5 mg PO BID 20 days sennosides (Natural Senna Laxative) 17.2 mg (2 x 8.6 mg) PO DAILY PRN 14 days tamsulosin 0.4 mg PO DAILY valacyclovir 500 mg PO DAILY 90 days walker Folding front wheeled walker Tobacco use date assessed: 01/14/24 Fall risk assessment: No Falls in past year Last assessed Fall Risk: 01/14/24 Dental Screening Dental Screen Date: 07/19/23 Did you have a dental visit in the last 12 months?: Yes Did you have a dental problem in the last 6 months where you did not have access to dental care?: No Was dental information given to patient?: Patient has dentist HPI CPE with f/u labs and health maint. HPI Details 68 y/o male presents for a CPE with f/u labs and health maintenance. Last A1c 6.8%. A1c today 01/14/24 is 7.6%. Pt notes he is on glipizide 10mg daily. He states he has been trying to corn picker activity level. Last diabetic eye exam was last April. Last colonoscopy 2020 showed tubular adenoma and they had recommended 3 year follow-up. [facility] Medical History Right knee pain BPH (benign prostatic hyperplasia) Osteoarthritis Dermatofibroma Tubular adenoma Diverticulosis History of benign prostatic hyperplasia Elevated cholesterol HTN (hypertension) Diabetes Surgical History H/O colonoscopy History of open reduction and internal fixation (ORIF) procedure History of appendectomy Family History Father CVD (cardiovascular disease) Cancer of prostate Mother Diabetes Brother No problems noted. Brother No problems noted. Sister No problems noted. Son No problems noted. Son No problems noted. 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 1. Little interest or pleasure in doing things: not at all 2. Feeling down, depressed, or hopeless: not at all 3. Trouble falling or staying asleep, or sleeping too much: not at all 4. Feeling tired or having little energy: not at all 5. Poor appetite or overeating: not at all 6. Feeling bad about yourself - or that you are a failure or have let yourself or your family down: not at all 7. Trouble concentrating on things, such as reading the newspaper or watching television: not at all 8. Moving or speaking so slowly that other people could have noticed. Or the opposite - being so fidgety or restless that you have been moving around a lot more than usual: not at all 9. Thoughts that you would be better off or of hurting yourself in some way: not at all Total score: 0 Depression Screening Interpretation: Negative Depression Screening Done: Yes 13610 - PHQ-9 Billing: Yes Source: Developed by Drs. Nik Hills, Janelle Dang, Danny Romo and colleagues, with an educational tiffanie from [employer]. Thrive Questionnaire Date Thrive assessed: 01/14/24 I am a: Patient What is your living situation today?: I have a steady place to live Within the past 12 months, did the food you bought not last and you didn't have the money to get more?: Never true Within the past 12 months, did you worry whether your food would run out before you got money to buy more?: Never true Do you have trouble paying for medicines?: No Do you have trouble getting transportation to medical appointments?: No Do you have trouble paying your heating and electricity bill?: No Do you have trouble taking care of your child, family member or friend?: No Do you have trouble with day-to-day activities such as bathing, preparing meals, shopping, managing finances, etc.?: No Are you currently unemployed and looking for a job?: No Are you interested in more education?: No THRIVE Score: 0 AUDIT C Alcohol Use Questionnaire (AUDIT-C) 1. How often do you have a drink containing alcohol?: Never 3. How often do you have six or more drinks on one occasion?: Never Total Score: 0 IVETT-7 AMB Questionnaire IVETT-7 Date IVETT - 7 assessed: 01/14/24 Feeling nervous, anxious, or on edge: 0 = Not at all Not being able to stop or control worryin = Not at all Worrying too much about different things: 0 = Not at all Trouble relaxin = Not at all Being so restless that it is hard to sit still: 0 = Not at all Becoming easily annoyed or irritable: 0 = Not at all Feeling afraid as if something awful might happen: 0 = Not at all Total IVETT-7 score (0-4 normal; 5-9 mild; 10-14 moderate; 15-21 severe): 0 Source: Developed by Drs. Nik Hills, Janelle Dang, Danny Romo and colleagues, with an educational tiffanie from [employer]. IVETT-7 Assessment Billing IVETT-7 Assessment Tool: IVETT-7 Assessment 05362 Review of Systems Const Denies chills, Denies fatigue, Denies fever(s), Denies headache(s) and Denies weakness Eyes Denies change in vision ENT Denies dizziness, Denies headache(s), Denies hearing loss, Denies nasal congestion, Denies sinus pain, Denies sinus pressure and Denies sore throat Card Denies chest pain, Denies lightheadedness, Denies dyspnea and Denies other (palpitations) Resp Denies cough, Denies dyspnea and Denies wheezing GI Denies abdominal pain, Denies melena, Denies hematochezia, Denies change in bowel habits, Denies dyspepsia and Denies nausea Denies hematuria and Denies dysuria Musc Denies abnormal gait, Denies myalgias, Denies arthralgias, Denies numbness and Denies tingling Skin/Breast Denies rash, Denies unusual bruising and Denies wounds Neuro Denies abnormal gait, Denies dizziness, Denies headache(s), Denies memory loss, Denies numbness, Denies Sensory deficit (Neuro), Denies tingling and Denies weakness Psych Denies anxiety, Denies depression and Denies memory loss Endo Denies cold intolerance, Denies fatigue, Denies heat intolerance, Denies polydipsia and Denies polyuria Ankit/Lymph Denies easy bleeding and Denies easy bruising Aller/Immun Denies wheezing Physical exam (Primary Care) Vital Signs: Last Vital Signs Pulse 83 01/14/24 14:04 BP 120/68 01/14/24 14:04 Pulse Ox 98 01/14/24 14:04 Oxygen Delivery Method Room Air 01/14/24 14:04 BMI result Body Mass Index 27.2 Tobacco/Smoking Status: Tobacco use Status Tobacco use date assessed 01/14/24 01/14/24 14:13 Patient Tobacco Use Status Former Tobacco user 01/14/24 14:13 Tobacco use type Cigarette 01/14/24 14:13 e-Cigarette/Vaping Use Never Used 01/14/24 14:13 PHQ-9: PHQ-9 Score PHQ-9: Total score 0 01/14/24 14:23 Depression Screening Interpretation: Negative Thrive Assessment: Date of Thrive Assessment Date Thrive assessed 01/14/24 01/14/24 14:13 Const General: no acute distress, well developed, alert and awake Nutritional Appearance: well nourished Orientation/consciousness: patient oriented x3 [facility] Head: Yes normocephalic and Yes atraumatic Ears: hearing grossly normal bilaterally and TM's normal bilaterally General nose exam: Normal external nose present and Normal nares present Mouth: Normal oral and palatal mucosa present and moist mucous membranes Teeth and gingiva: dentition normal Throat: Yes posterior oropharynx normal Eyes General: appearance normal, both eyes and all related structures Pupils: Equal, round and reactive pupils present and Pupil accommodation reflex normal EOM: EOMs intact bilaterally Neck Neck: Yes normal visual inspection, Yes no lymphadenopathy and Yes trachea midline Thyroid: Thyroid normal Carotids: no bruits Lymphatic: no lymphadenopathy noted Chest Chest palpation & inspection: normal inspection of the chest Resp Effort & Inspection: normal respiratory effort Auscultation: clear to auscultation bilaterally Cardio Rate: regular rate Rhythm: regular rhythm Heart sounds: S1 normal heart sound present, S2 normal heart sound present, no gallops, no murmurs and no rubs Bruits: no abdominal aortic bruits and no carotid bruits GI Palpation (GI): No Abdominal aortic bruit present, Soft to palpation, nontender, No hepatosplenomegaly present and No Rebound tenderness present Auscultation: normal bowel sounds General: Yes no CVA tenderness Back/Spine/Pelvis Back: no CVA tenderness Cervical Spine: cervical ROM normal and No Cervical spine tenderness Thoracic/Lumbar Spine: thoraco-lumbar ROM normal, No pain with thoraco-lumbar ROM, No thoracic spinal tenderness and No lumbar spinal tenderness Skin Lesions: no lesions Rashes: no rashes Trauma: no lacerations or abrasions Wounds: no wounds Nails: normal Neuro General: patient oriented x3 Cranial nerves: Yes Equal, round and reactive pupils present Cognition (Neuro): normal cognition Gait exam (Neuro): Normal gait present Motor exam (neuro): 5/5 motor strength present throughout Sensory Exam: No Sensory deficit (Neuro) Deep tendon reflexes (DTR's): Right patellar reflex intensity grade: 2+ and Left patellar reflex intensity grade: 2+ Extrem General: Yes normal to inspection and No edema Psych Appearance: grossly normal Affect: normal affect Attitude: cooperative Thought process: Normal thought process present Results AMB Hemoglobin A1c AMB Hemoglobin A1c 7.6 % Last Edit by Betty Arenas CMA on 01/14/24 14:26 Results Reviewed Results Reviewed: Laboratory Last Values Hgb A1c (Clinic) 7.6 % (4.0-6.0) H 01/14/24 14:21 Assessment and Plan Assessment & Plan (1) Diabetes type 2, controlled: Code(s): E11.9 - Type 2 diabetes mellitus without complications Plan: Last?A1c?was?6.8%?in?October. A1c?today?7.6%. Goal?is?less?than?7% Patient?is?taking?glipizide?ER?10?mg?daily.??Had?been?on?12.5mg daily?previously He?was?start?checking?his?blood?sugars?later?in?his?day?as?well? as?in?the?morning He?will?take?an?additional?2.5?mg?in?his?afternoons?until?blood?sugars?are?impro ving?during?the?day Follow-up?in?3?months Last?diabetic?eye?exam?in?April?2022?showed?no?diabetic?retinopathy Follow-up?with?flare breaker?this?summer (2) Essential (primary) hypertension: Code(s): I10 - Essential (primary) hypertension Plan: Blood?pressure?is?well?controlled.??Patient?has?lost?about?6?lb?since?retiring?a nd?recovering?from?knee?surgery. Goal?is?less?than?140/90 EKG?in?July?was?within?normal?limits Continue?current?medication (3) Total knee replacement status: Code(s): Z96.659 - Presence of unspecified artificial knee joint Qualifiers: Laterality: right Qualified Code(s): Z96.651 - Presence of right artificial knee joint Plan: S/p?total?knee?replacement?and?doing?well Follow-up?with?ortho?as?recommended Continue?to?exercise (4) Screening for prostate cancer: Code(s): Z12.5 - Encounter for screening for malignant neoplasm of prostate Plan: History?of?BPH On?finasteride (5) Screening for colon cancer: Code(s): Z12.11 - Encounter for screening for malignant neoplasm of colon Plan: History?of?tubular?adenoma Colonoscopy?in?2020,??Gideon. Recommended?repeat?colonoscopy?in?3?years;?2023 Referred?back?to?GI (6) Tubular adenoma: Code(s): D36.9 - Benign neoplasm, unspecified site Plan: As?above (7) Screening for AAA (abdominal aortic aneurysm): Code(s): Z13.6 - Encounter for screening for cardiovascular disorders Plan: Has?not?had?screening?for?AAA.??History?of?hypertension. No?symptoms EKG?in?July?was?within?normal?limits Blood?pressure?is?well?controlled Check?ultrasound (8) Adult general medical exam: Code(s): Z00.00 - Encounter for general adult medical examination without abnormal findings Plan: 68-year-old?male?presents?for?an?extended?exam Encouraged?healthy?diet?with?active?lifestyle?and?plenty?of?exercise Orders: Orders AMB Hemoglobin A1c Today Z13.9 - Encounter for screening, unspecified US aorta Today I10 - Essential (primary) hypertension, Z13.6 - Encounter for screening for cardiovascular disorders Referrals Gastroenterology Referral D36.9 - Benign neoplasm, unspecified site, Z12.11 - Encounter for screening for malignant neoplasm of colon Coding Level of Care Code Est Pt Level 4 (78883) Diagnoses Diabetes type 2, controlled E11.9 Essential (primary) hypertension I10 Status post total right knee replacement Z96.651 Laterality: right Screening for prostate cancer Z12.5 Screening for colon cancer Z12.11 Tubular adenoma D36.9 Screening for AAA (abdominal aortic aneurysm) Z13.6 Adult general medical exam Z00.00 Additional Codes IVETT-7 Assessment Billing - IVETT-7 Assessment Tool: IVETT-7 Assessment 34098 ([id number])
== END 2024-01-14 15:02 | disposition home or self-care (01) ==
PROVIDERS: PCP Family Medicine; Visit Provider Family Medicine
DX: E11.9 Type 2 diabetes mellitus without complications (principal); I10 Essential (primary) hypertension; Z96.651 Presence of right artificial knee joint; D36.9 Benign neoplasm, unspecified site; Z12.5 Encounter for screening for malignant neoplasm of prostate; Z12.11 Encounter for screening for malignant neoplasm of colon; Z13.6 Encounter for screening for cardiovascular disorders
CPT/HCPCS: 83036; 99214

== ENCOUNTER → 2024-02-14 07:45 | Outpatient (BNVA) | payer MEDICARE, SELFPAY | PROVIDERS: PCP Family Medicine; Visit Provider Nurse Practitioner Family ==

== ENCOUNTER 2024-06-29 08:08 | Outpatient (REF) | payer MEDICARE, SELFPAY ==
[2024-06-29 09:31] LABS: Alanine Aminotransferase 16 U/L (0-40); Albumin Level 4.2 g/dL (3.5-5.0); Alkaline Phosphatase 55 U/L (39-117); Anion Gap 13 (12-20); Aspartate Amino Transferase 14 U/L (5-37); Bilirubin Total 1.4 mg/dL (0.0-1.0); Blood Urea Nitrogen 15 mg/dL (9-16); Calcium 9.5 mg/dL (8.4-10.2); Carbon Dioxide 29 mmol/L (22-29); Chloride 107 mmol/L (96-108); Cholesterol 144 mg/dL (<200); Estimated Glomerular Filt Rate > 60; Glucose Fasting 136 mg/dL (60-99); HDL Cholesterol 47 mg/dL (>40); LDL Cholesterol Calculated 82 mg/dL (<100); Potassium 4.5 mmol/L (3.3-5.1); Sodium 144 mmol/L (135-145); Total Protein 6.6 g/dL (6.5-8.0); Triglycerides 75 mg/dL (<150)
== END 2024-06-29 08:09 | disposition home or self-care (01) ==
LOC: HO.LAB 08:08
PROVIDERS: PCP Family Medicine; Visit Provider Family Medicine
DX: Z00.00 Encounter for general adult medical examination without abnormal findings (principal); E11.9 Type 2 diabetes mellitus without complications; E78.00 Pure hypercholesterolemia, unspecified
CPT/HCPCS: 36415; 80053; 80061

== ENCOUNTER 2024-06-30 11:30 | Outpatient (AMB) | payer MEDICARE, SELFPAY ==
--- NOTE | 2024-06-30 11:55 | A.OFFPC_ITS ---
Vital Signs 06/30/24 11:59 Height 5 ft 7 in Weight 179 lb 8 oz BMI 28.1 BP 126/60 Blood Pressure Location Rt brachial Position Sitting Respiration 16 Pulse 63 Pulse Source Pulse Oximeter Temp 97.5 F Temp Source Tympanic Pulse Oximetry (%) 98 Oxygen Delivery Method Room Air Intake Visit Reasons: f/u diabetes Intake Note: f/u for DM Allergies bee pollen [bee stings] Allergy (Severe, Verified 06/30/24 11:55) Anaphylaxis codeine Adverse Reaction (Intermediate, Verified 06/30/24 11:55) Vomiting Tobacco use date assessed: 01/14/24 Dental Screening Dental Screen Date: 07/19/23 HPI f/u diabetes HPI Details 68 y/o male presents to f/u diabetes. A1c had climbed to 7.6%. Last A1c 01/14/24 7.6%. A1c today 06/30/24 is 7.1%. He is on glipizide. Pt notes he can tell when his blood sugar drops down to the 90s. Has seen a number in the 70s. Eye exam April showed no diabetic retinopathy. Blood pressure today 126/60, 63p. HPI Comments History of Present Illness Details Documentation assistance for John Gonzales MD, was provided by Jl Child,? Bank President on 06/30/2024 at 12:20 PM EST. I, Dr. Gonzales, have read, observed, and verified documentation. [facility] Medical History (Updated 01/14/24 @ 14:12 by John Gonzales MD) Right knee pain BPH (benign prostatic hyperplasia) Osteoarthritis Dermatofibroma Tubular adenoma Diverticulosis History of benign prostatic hyperplasia Elevated cholesterol HTN (hypertension) Diabetes Surgical History (Updated 02/14/24 @ 08:11 by An Espitia) Hx of total knee replacement H/O colonoscopy History of open reduction and internal fixation (ORIF) procedure History of appendectomy Family History Father CVD (cardiovascular disease) Cancer of prostate Mother Diabetes Brother No problems noted. Brother No problems noted. Sister No problems noted. Son No problems noted. Son No problems noted. 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 Nik Hills, Janelle Dang, Danny Romo and colleagues, with an educational tiffanie from [employer]. Review of Systems Const Denies chills, Denies fatigue, Denies fever(s), Denies headache(s) and Denies weakness ENT Denies dizziness and Denies headache(s) Card Denies dyspnea Resp Denies cough, Denies dyspnea, Denies wheezing and Denies other (shortness of breath) Musc Denies numbness and Denies tingling Neuro Denies dizziness, Denies headache(s), Denies numbness, Denies tingling and Denies weakness Psych Denies anxiety and Denies depression Endo Denies fatigue Aller/Immun Denies wheezing Physical exam (Primary Care) Vital Signs: Last Vital Signs Temp 97.5 F 06/30/24 11:59 Pulse 63 06/30/24 11:59 Resp 16 06/30/24 11:59 BP 126/60 06/30/24 11:59 Pulse Ox 98 06/30/24 11:59 Oxygen Delivery Method Room Air 06/30/24 11:59 BMI result Body Mass Index 28.1 Tobacco/Smoking Status: Tobacco use Status Tobacco use date assessed 01/14/24 06/30/24 12:02 Patient Tobacco Use Status Former Tobacco user 06/30/24 12:02 Tobacco use type Cigarette 06/30/24 12:02 e-Cigarette/Vaping Use Never Used 06/30/24 12:02 Thrive Assessment: Date of Thrive Assessment Date Thrive assessed 01/14/24 06/30/24 12:02 Const General: well developed; No acute distress Nutritional Appearance: well nourished Orientation/consciousness: patient oriented x3 [facility] Head: Yes normocephalic and Yes atraumatic Eyes General: appearance normal, both eyes and all related structures Pupils: Equal, round and reactive pupils present EOM: EOMs intact bilaterally Resp Effort & Inspection: normal respiratory effort Auscultation: clear to auscultation bilaterally Cardio Rate: regular rate Rhythm: regular rhythm Heart sounds: S1 normal heart sound present, S2 normal heart sound present, no gallops, no murmurs and no rubs Neuro General: patient oriented x3 and gait normal Cranial nerves: Yes Equal, round and reactive pupils present Psych Affect: normal affect Assessment and Plan Assessment & Plan (1) Diabetes type 2, controlled: Code(s): E11.9 - Type 2 diabetes mellitus without complications Plan: A1c?improved?from?7.6%?to?7.1%.??He?is?still?taking?glipizide?12.5?mg?daily. Fair?control.??Goal?is?less?than?7.0% Continue?current?medication?regimen Continue?to?work?at?a?diabetic?diet?and?exercise?and?weight?control Patient?had?most?recent?eye?exam?in?April.??No?diabetic?retinopathy. Up-to-date (2) Essential (primary) hypertension: Code(s): I10 - Essential (primary) hypertension Plan: Blood?pressure?is?controlled.??Goal?is?less?than?140/90 Continue?current?medication Continue?exercise?and?weight?control (3) Immunization counseling: Code(s): Z71.85 - Encounter for immunization safety counseling Plan: We?reviewed?flu?shot,?pneumonia?shot,?RSV?and?COVID?shots. Patient?is? planning?on?getting?flu?shot?tomorrow?and?will?consider?the?other,?above?vaccine s. Coding Level of Care Code Est Pt Level 3 (13230) Diagnoses Diabetes type 2, controlled E11.9 Essential (primary) hypertension I10 Immunization counseling Z71.85
[2024-06-30 11:59] VITALS: BP 126/60; PULSE 63; RESP 16; TEMP 36.4; O2SAT 98; BMI 28.1
== END 2024-06-30 12:38 | disposition home or self-care (01) ==
PROVIDERS: PCP Family Medicine; Visit Provider Family Medicine
DX: E11.9 Type 2 diabetes mellitus without complications (principal); I10 Essential (primary) hypertension; Z71.85 Encounter for immunization safety counseling

== ENCOUNTER → 2024-06-30 11:30 | Outpatient (BNVA) | payer MEDICARE, SELFPAY | PROVIDERS: PCP Family Medicine; Visit Provider Family Medicine | DX: E11.9 Type 2 diabetes mellitus without complications (principal); I10 Essential (primary) hypertension; Z87.891 Personal history of nicotine dependence; Z79.84 Long term (current) use of oral hypoglycemic drugs; Z71.85 Encounter for immunization safety counseling | CPT/HCPCS: 99212 ==

== ENCOUNTER 2024-08-07 07:34 | Day surgery (SDC) | payer MEDICARE, SELFPAY ==
[2024-08-07 08:47] VITALS: BMI 26.6
[2024-08-07 09:07] VITALS: BP 150/71; PULSE 98; RESP 12; TEMP 36.1; O2SAT 100; BMI 26.6
[2024-08-07] MEDS: Lactated Ringers 1,000 ML 50 ML IVCONT (09:13)
[2024-08-07 09:20] LABS: Glucose, Whole Blood 113 mg/dL (60-115)
--- NOTE | 2024-08-07 09:23 | MHC.SHP ---
Pre-Procedural Eval Section A - 24 Hr Update-Section A only Date of Service: 08/07/24 Section B - Complete if H&P > 30 days Chief Complaint: Surveillance for colon polyps Relevant Family History (Specify if Yes): No Relevant Social History: Tobacco Use (Former smoker) Present Medications: see Short Stay Collaborative assessment Medical History: Significant History (Right knee pain BPH (benign prostatic hyperplasia) Osteoarthritis Dermatofibroma Tubular adenoma Diverticulosis History of benign prostatic hyperplasia Elevated cholesterol HTN (hypertension) Diabetes) History of Previous Operations: Relevant previous surgery/procedure and date(s) (Hx of total knee replacement H/O colonoscopy History of open reduction and internal fixation (ORIF) procedure History of appendectomy) Allergies: Allergies Allergy/AdvReac Type Severity Reaction Status Date / Time bee pollen [bee stings] Allergy Severe Anaphylaxis Verified 08/07/24 09:19 codeine AdvReac Intermediate Vomiting Verified 08/07/24 09:19 Review of Systems Sugical H&P ROS: Negative: Constitution, Cardiovascular, Respiratory and Gastrointestinal Exam Surgical H&P Exam: Normal: Heart, Normal: Lungs, Normal: Extremities and Normal: Abdomen Plan Diagnosis/Plan: Unchanged I have reviewed the history and physical and performed a pertinent physical examination on my patient. No changes have occurred unless specified. Time Spent With Patient Time: Total time managing care of this patient today ____ minutes.
--- NOTE | 2024-08-07 09:57 | HO.ANESPROP2 ---
[facility] Active Problems Active Problems: All Active Problems Adult general medical exam (Acute) Screening for AAA (abdominal aortic aneurysm) (Acute) Total knee replacement status (Acute) Hyperlipidemia (Acute) Mild tongue swelling (Acute) Status post total knee replacement, right (Acute) Preop cardiovascular exam (Acute) Poison stacia (Acute) Lump of skin (Acute) Osteoarthritis of right knee (Acute) Palpitations (Acute) Sun-damaged skin (Acute) Shoulder pain (Acute) Arm pain (Acute) Immunization counseling (Acute) Fatigue (Acute) Elevated bilirubin (Acute) Skin lesion of back (Acute) Borderline anemia (Acute) Lymphadenopathy of head and neck (Acute) Lymphadenopathy (Acute) Exposure to COVID-19 virus (Acute) Dermatofibroma (Acute) Difficulty sleeping (Acute) Screening for colon cancer (Acute) Screening for prostate cancer (Acute) Annual physical exam (Acute) Essential (primary) hypertension (Acute) Diabetes type 2, controlled (Acute) Tubular adenoma (Acute) Diverticulosis (Acute) Elevated cholesterol (Acute) Past Medical History Medical History Right knee pain BPH (benign prostatic hyperplasia) Osteoarthritis Dermatofibroma Tubular adenoma Diverticulosis History of benign prostatic hyperplasia Elevated cholesterol HTN (hypertension) Diabetes Family History Family History Father CVD (cardiovascular disease) Cancer of prostate Mother Diabetes Brother No problems noted. Brother No problems noted. Sister No problems noted. Son No problems noted. Son No problems noted. Maternal Grandmother Diabetes Family history of problems with anesthesia: No Surgical History Surgical History Hx of total knee replacement H/O colonoscopy History of open reduction and internal fixation (ORIF) procedure History of appendectomy History of Problems with Anesthesia: No Social History Social History Household Members: Spouse Housing: House Are you a primary healthcare educator to a significant other at home: No Do you presently have visiting nurse or other home services: No Alcohol intake: current Alcohol intake frequency: does not drink Patient Tobacco Use Status: Former Tobacco user Tobacco use type: Cigarette Years Smoked: 3 e-Cigarette/Vaping Use: Never Used Second Hand Smoke Exposure: No Use of substances other than those prescribed or required for medical reasons: No Substance Use Frequency: Weekly Have you been hit, kicked, punched, or otherwise hurt by someone within the past year? 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 - [employer] Current occupational exposures/hazards: No Cognitive needs: No Hearing needs: No Vision needs: No Meds Allergies Allergy/AdvReac Type Severity Reaction Status Date / Time bee pollen [bee stings] Allergy Severe Anaphylaxis Verified 08/07/24 09:19 codeine AdvReac Intermediate Vomiting Verified 08/07/24 09:19 Active Medications: Current Medications Lactated Ringer's (Lr) 1,000 mls @ 50 mls/hr IVCONT .Q20H INDER Last Admin: 08/07/24 09:13 Dose: 50 mls/hr Naloxone HCl (Naloxone Hcl 0.4 Mg/Ml Vial) 0.04 mg IVPUSH Q5M PRN PRN Reason: Excessive sedation or RR < 8 Home Medications ?Medication ?Instructions ?Recorded ?Confirmed ?Last Taken ?Type glipizide 10 mg tablet, extended 12.5 mg PO DAILY 11/01/23 08/07/24 Unknown History release 24 hr Exam Height,Weight and Vital Signs: Height 5 ft 7 in Weight 77.111 kg Last Vital Signs Temp 96.9 F 08/07/24 09:07 Pulse 98 08/07/24 09:07 Resp 12 08/07/24 09:07 BP 150/71 H 08/07/24 09:07 Pulse Ox 100 08/07/24 09:07 O2 Del Method Room Air 08/07/24 09:07 Pertinent Lab Results Pertinent Lab Results: Laboratory Tests 08/07/24 09:16 POC Glucose 113 Airway Mallampati Class: II (cap laterally) TM Dist: >3cm Neck ROM: Full Heart: rrr Lungs: cta Assessment and Plan Assessment Anesthesia Assessment: Anesthesia Plan Discussed and Chart Reviewed Final Anesthetic Review Family History of Problems with Anesthesia: No History of Problems with Anesthesia: No NPO: Yes ASA Class: III Final Preanesthetic Review: No Changes in Pt Med Stat, Meds/Allgs Chart Reviewed and Consent Obtained/Reviewed Patient Risk: Low Procedure Risk: Low Anesthetic Plan Anesthetic Plan: MAC: Disposition: Standard PACU
[2024-08-07 10:07] VITALS: BP 109/55; PULSE 54; RESP 16; TEMP 36.7; O2SAT 97
--- NOTE | 2024-08-07 10:08 | HO.OPN-COLON ---
Colonoscopy Operative Note Operative Note Date of Service: 08/07/24 Narrative: COLONOSCOPY TILL CECUM Pre-op diagnosis: Surveillance of colon polyps. Post-op diagnosis:? Diverticulosis, hemorrhoids Endoscopist:? Tanna Meneses MD Anesthesia:?MAC Consent: Indications for the procedure and potential complications of bleeding, perforation, reaction to medications and missed diagnosis were discussed with the patient and informed consent was obtained. Instrument: Olympus PCF H 190 L variable stiffness pediatric colonoscope Monitoring: Vital signs and clinical assessment, intermittent blood pressure monitoring, continuous EKG monitoring, Pulse oximetry and Carbon Dioxide monitoring were done throughout the procedure. Please see anesthesia flowsheet. Colon withdrawl time was 25 minutes. Procedure: The patient was placed in the left lateral decubitis position and pre-procedure medications were administered. After a digital rectal examination of the ano-rectum, the video colonoscope was inserted into the rectum and advanced through the colon to the cecum. The colonoscope was slowly withdrawn in a retrograde panoramic fashion and the colon mucosa was carefully examined including a retroflexed view of the rectum. Findings and interventions are described below. Procedure Difficulty: without difficulty Findings: Terminal Ileum: Not evaluated Cecum: Normal Ascending Colon: Normal Transverse Colon: Normal Descending Colon: Moderate diverticulosis Sigmoid Colon: Moderate diverticulosis Rectum: Normal Ano-rectum: Small internal hemorrhoids Colon preparation: Excellent, after some irrigation. [place]cam[place] Bowel Preparation Scale Right colon; 3 Transverse colon: 3 Left colon; 3 (0 = Unprepared colon segment with mucosa not seen due to solid stool that cannot be cleared. 1 = Portion of mucosa of the colon segment seen, but other areas of the colon segment not well seen due to staining, residual stool and/or opaque liquid. 2 = Minor amount of residual staining, small fragments of stool and/or opaque liquid, but mucosa of colon segment seen well. 3 = Entire mucosa of colon segment seen well with no residual staining, small fragments of stool or opaque liquid) Impression and Post Procedure Diagnosis: Colonoscopy Findings: No polyps were detected Moderate diverticulosis seen in the left colon Small hemorrhoids on retroflexed exam. Plan: Pt has a FU appointment on 09/04/24 with Luana Alonzo NP Repeat Colonoscopy in 5 years due to history of adenomatous colon polyps. Above findings were reviewed with the patient and relevant handouts were given and the discharge area.
[2024-08-07 10:22] VITALS: BP 121/71; PULSE 65; RESP 16; TEMP 36.3; O2SAT 98
== END 2024-08-07 10:45 | disposition home or self-care (01) ==
PROVIDERS: PCP Family Medicine; Visit Provider Internal Medicine Gastroenterology
PROC: 0DJD8ZZ Inspection of Lower Intestinal Tract, Via Natural or Artificial Opening Endoscopic (ICD-10-PCS; CPT 45378; principal; 2024-08-07 09:20)
DX: Z12.11 Encounter for screening for malignant neoplasm of colon (principal); Z86.0101 Personal history of adenomatous and serrated colon polyps; K57.30 Diverticulosis of large intestine without perforation or abscess without bleeding; K64.8 Other hemorrhoids; I10 Essential (primary) hypertension; E78.00 Pure hypercholesterolemia, unspecified; E11.9 Type 2 diabetes mellitus without complications; Z79.84 Long term (current) use of oral hypoglycemic drugs; Z79.1 Long term (current) use of non-steroidal anti-inflammatories (NSAID); Z79.899 Other long term (current) drug therapy; Z88.5 Allergy status to narcotic agent; Z87.891 Personal history of nicotine dependence; Z98.890 Other specified postprocedural states
CPT/HCPCS: G0105; 82947; J2003; J2704

== ENCOUNTER → 2024-08-07 07:34 | Outpatient (BNV) | payer MEDICARE, SELFPAY | PROVIDERS: PCP Family Medicine; Visit Provider Internal Medicine Gastroenterology | DX: Z12.11 Encounter for screening for malignant neoplasm of colon (principal); Z86.0100 Personal history of colon polyps, unspecified; K57.90 Diverticulosis of intestine, part unspecified, without perforation or abscess without bleeding; K64.8 Other hemorrhoids | CPT/HCPCS: G0105 ==

== ENCOUNTER 2025-02-12 07:47 | Outpatient (REF) | payer MEDICARE, SELFPAY ==
--- OUTSIDE RECORDS SUMMARY | 2025-02-12 07:50 | XMS_ITS | Encounter Summary ---
Author Organization [employer] Address [address] [place] [address] [address] [place] [address] Care Team Providers Care Director Social Name Role Phone Unavailable Primary Care Provider Unavailabl e Encounter Details Date Type Department Care Team (Latest Contact Info) Description 12/10/2019 Abstract [facility] Dental, Provider, DDS Social History Tobacco Use Types Packs/Day Years Used Date Smoking Tobacco: Never Assessed Sex and Gender Information Value Date Recorded Sex Assigned at Male 04/17/2023 8:51 PM EDT Legal Sex Male 5:37 PM EDT Gender Identity Male 04/17/2023 8:51 PM EDT Sexual Orientation Straight 04/17/2023 8: 51 PM EDT documented as of this encounter Plan of Treatment Upcoming Encounters Date Type Department Care Team (Late st Contact Info) Description 04/21/2025 4:00 PM EDT Office Visit [facility] OPTOMETRY [address] [place] [address] Diana Matute OD [address] [place] [address] 06/15/2025 8:30 AM EDT Office Visit [facility] DENTAL [address] [place] [address] Mickie Panda documented as of this encounter Visit Diagnoses Not on filedocumented in this encounter
--- OUTSIDE RECORDS SUMMARY | 2025-02-12 07:50 | XMS_ITS | Encounter Summary ---
Author Organization [employer] Address [address] [place] [address] 7 [place] [address] Care Team Providers Care Bar And Filler Assembler Name Role Phone Unavailable Primary Care Provider Unavailabl e Encounter Details Date Type Department Care Team (Latest Contact Info) Description 11/02/2021 Abstract [facility] Dental, Provider, DDS Social [...] 04/21/2025 4:00 PM EDT Office Visit [facility] OPTOMETRY [address] [place] [address] Diana Matute OD [address] [place] [address] 06/15/2025 8:30 AM EDT Office Visit [facility] DENTAL [address] [place] [address] Mickie Panda documented as of this encounter Visit Diagnoses Not on filedocumented in this encounter
--- OUTSIDE RECORDS SUMMARY | 2025-02-12 07:50 | XMS_ITS | Encounter Summary ---
Author Organization [employer] Address [address] [place] [address] 7 [place] [address] Care Team Providers Care Identity Management Developer Name Role Phone Unavailable Primary Care Provider Unavailabl e Encounter Details Date Type Department Care Team (Latest Contact Info) Description 03/09/2021 Abstract [facility] Dental, Provider, DDS Social [...] Description 04/21/2025 4:00 PM EDT Office Visit [facility] OPTOMETRY [address] [place] [address] Diana Matute OD [address] [place] [address] 06/15/2025 8:30 AM EDT Office Visit [facility] DENTAL [address] [place] [address] Mickie Panda documented as of this encounter Visit Diagnoses Not on filedocumented in this encounter
--- OUTSIDE RECORDS SUMMARY | 2025-02-12 07:50 | XMS_ITS | Clinical Summary ---
Author Organization [employer] Address [address] [place] [address] 7 [place] [address] Care Team Providers Care Reel Man Name Role Phone Unavailable Primary Care Provider Unavailabl e Allergies Active Allergy Reactions Criticality Noted Date Comments Bee Pollen High 08/16/2023 anaphylaxis Codeine 04/03/2023 Other reaction(s): dizzy, nausea Medications finasteride (Proscar) 5 MG tablet 1 tablet in the morning. Active glipiZIDE XL (Glucotrol XL) 2.5 MG 24 hr tablet 1 tablet in the morning. Active pravastatin (Pravachol) 20 MG tablet TAKE 1 TABLET BY MOUTH AT BEDTIME Oral for 90 Active tamsulosin (Flomax) 0.4 MG 24 hr capsule Oral for 90 Active valACYclovir (Valtrex) 500 MG tablet 1 tablet in the morning. Active losartan (Cozaar) 25 MG tablet Oral for 90 Active glipiZIDE XL (Glucotrol XL) 10 MG 24 hr tablet Take 10 mg by mouth in the morning. Active ibuprofen 800 MG tablet TAKE 1 TABLET BY MOUTH EVERY 8 HOURS NEEDED FOR PAIN Oral for 30 02/10/20 25 Discontinued Active Problems Problem Noted Date Diagnosed Date Primary hypertension 04/19/2023 Other hyperlipidemia 04/19/2023 Type 2 diabetes mellitus wit hout complication, without long-term current use of insulin 04/03/2023 Encounters Date Type Department Care Team Description 02/09/2025 8:30 AM EDT Office Visit [facility] DENTAL [address] [place] [address] Mickie Panda Encounter for dental examination (Primary Dx); Stage 2 grade B generalized periodontitis per AAP/EFP 2017 classification 11/18/2024 7:30 AM EST Office Visit [facility] DENTAL [address] [place] [address] Gt Leone Jr., DMD from Last 3 Months Social History Tobacco Use Types Packs/Day Years Used Date Smoking Tobacco: Former Cigarettes Passive Smoke Exposure: Never Smokeless Tobacco: Never Tobacco Cessation:Counseling Given: Not Answered Comments:Smoked in 21's stopped by 26 Alcohol Use Standard Drinks/Week Comments Never 0 (1 standard drink = 0.6 oz pur e alcohol) Sex and Gender Information Value Date Recorded Sex Assigned at Male 04/17/2023 8:51 PM EDT Legal Sex Male 5:37 PM EDT Gender Identity Male 04/17/2023 8:51 PM EDT Sexual Orientation Straight 04/17/2023 8: 51 PM EDT Last Filed Vital Signs Vital Sign Reading Time Taken Comments Blood Pressure 130/72 04/20/2024 4:06 PM EDT Pulse - - Temperature 36.2 ??C (97.2 ??F) 04/20/2024 4:06 PM ED T Respiratory Rate - - Oxygen Saturation - - Inhaled Oxygen Concentration - - Weight - - Height - - Body Mass Index - - Plan of Treatment Upcoming Encounters Date Type Department Care Team (Late st Contact Info) Description 04/21/2025 4:00 PM EDT Office Visit [facility] OPTOMETRY [address] [place] [address] Diana Matute, OD [address] [place] [address] 06/15/2025 8:30 AM EDT Office Visit [facility] DENTAL [address] [place] [address] Mickie Panda Health Maintenance Due Date Last Done Comments CT Colonography 1956 Colonoscopy 1956 Colorectal Cancer Screening 1956 Depression Screening 1956 Diabetes: Hemoglobin A1C 1956 FIT DNA/Cologuard 1956 FIT 1956 FOBT 1956 Lipid Panel 1956 SDOH Screening 1956 Sigmoidoscopy 1956 Diabetes: Foot Exam 1966 Alcohol/Substance Use Screening 1968 Hepatitis C Screening 1974 Diabetes: Urine Protein Screening 1975 Zoster Vaccines (2 of 3) 07/05/2011 05/10/2011 Pneumococcal Vaccine: 50+ Years (2 of 2 - PPSV23) 09/07/2015 07/13/2015 Hepatitis B Vaccines (3 of 3 - 19+ 3-dose series) 06/26/2018 05/01/2018, 10/31/2017 COVID-19 Vaccine ( season) 2024 10/03/2023, 07/28/2022, 08/12/2021, Additional history exists Dental Oral Exam 08/12/2025 02/09/2025, , 10/02/2021, Additional history exists Dental Prophylaxis 08/12/2025 02/09/2025, 1 , 03/09/2021, Additional history exists Tobacco Screening 02/09/2026 02/09/2025 Dental X-Ray: Bitewings 02/10/2026 02/10/20, 08/05/2024, 11/02/2021, Additional history exists Eye Exam 04/20/2026 04/20/2024, 0705/2024, 04/20/2024, Additional history exists DTaP/Tdap/Td Vaccines (3 - Td or Tdap) 10/31/2027 10/31/2017, 06/24/2012, 01/08/2005 Dental X-Ray: Full Mouth 02/11/2028 02/09/2025, 12/2019 RSV Patients and Patients Aged 60 years or older (1 - 1-dose 75+ series) 2031 Influenza Vaccine Completed 06/30/2024, , 07/28/2022, Additional history exists HIB Vaccines Aged Out No longer eligi ble based on patient's age to complete this topic HPV Vaccines Aged Out No longer eligi ble based on patient's age to complete this topic Hepatitis A Vaccines Aged Out No long er eligible based on patient's age to complete this topic IPV Vaccines Aged Out No longer eligi ble based on patient's age to complete this topic Meningococcal Vaccine Aged Out No evan della eligible based on patient's age to complete this topic RSV under 20 months Aged Out No longe r eligible based on patient's age to complete this topic Rotavirus Vaccines Aged Out No longer eligible based on patient's age to complete this topic Procedures Procedure Name Priority Date/Time Associated Diagnosis Comments INTRAORAL - COMPLETE SERIES OF RADIOGRAPHIC IMAGES Routine 02/09/2025 8:30 AM EDT ORAL HYGIENE INSTRUCTIONS Routine 2024 8:30 AM EDT Full PROPHYLAXIS - ADULT Routine 025 8:30 AM EDT PERIODIC ORAL EVALUATION - ESTABLISHED PATIENT Routine 02/09/2025 8:30 AM EDT NO CHARGE EXAM AND CONSULTATION Routine 11/18/2024 7:30 AM EST from Last 3 Months Insurance [facility]
--- OUTSIDE RECORDS SUMMARY | 2025-02-12 07:50 | XMS_ITS | Encounter Summary ---
Author Organization [employer] Address [address] [place] [address] [address] [place] [address] Care Team Providers Care Blind Hooker Name Role Phone Unavailable Primary Care Provider Unavailabl e Encounter Details Date Type Department Care Team (Latest Contact Info) Description 2019 Abstract [facility]VERSION[facility] Dental, Provider, DDS Social [...] 04/21/2025 4:00 PM EDT Office Visit [facility] OPTOMETRY [address] [place] [address] Diana Matute OD [address] [place] [address] 06/15/2025 8:30 AM EDT Office Visit [facility] DENTAL [address] [place] [address] Mickie Panda documented as of this encounter Visit Diagnoses Not on filedocumented in this encounter
--- OUTSIDE RECORDS SUMMARY | 2025-02-12 07:50 | XMS_ITS | Encounter Summary ---
Author Organization [employer] Address [address] [place] [address] [address] [place] [address] Care Team Providers Care It Account Manager Name Role Phone Unavailable Primary Care Provider Unavailabl e Reason for Visit * Reason Comments Routine Cleaning Dental Exam Encounter Details Date Type Department Care Team (Latest Contact Info) Description 02/09/2025 8:30 AM EDT Office Visit [facility] DENTAL [address] [place] [address] Mickie Panda Encounter for dental examination (Primary Dx); Stage 2 grade B generalized periodontitis per AAP/EFP 2017 classification Social History Tobacco Use Types Packs/Day Years [...] PM EDT documented as of this encounter Progress Notes * Mickie Panda - 02/09/2025 8:30 AM EDT Subjective: CC: Pt. Presents to the clinic for routine cleaning. MH: no changes since last visit Objective: Extra oral exam: WNL Intra oral exam: Adult OCS: WNL. Progression of periodontal problems. Perio Case Type: Stage II Grade B generalised periodontitis Oral Hygiene: Fair. Generalized moderate plaque and calculus. X-rays: FMX exposed for evaluation. Assessment and plan: Light scaling with hand instruments and Cavitron. ultrasonic with Releaf high speed suction Polishing done with handpiece and prophy angle with paste. OHI:tooth brushing with Huntley technique and flossing instruction. Advised pt. On brushing habits, use of waterpik and flossing Exam done by Dr. Matos [place]: Hygiene recall NOTES: Patient did great!! Mickie Panda documented in this encounter Plan of Treatment Upcoming Encounters Date Type Department Care Team (Late st Contact Info) Description 04/21/2025 4:00 PM EDT Office Visit [facility] OPTOMETRY [address] [place] [address] Diana Matute, ELIJAH [address] [place] [address] 06/15/2025 8:30 AM EDT Office Visit [facility] DENTAL [address] [place] [address] Mickie Panda documented as of this encounter Procedures Procedure Name Priority Date/Time Associated Diagnosis Comments Full PROPHYLAXIS - ADULT Routine 025 8:30 AM EDT PERIODIC ORAL EVALUATION - ESTABLISHED PATIENT Routine 02/09/2025 8:30 AM EDT ORAL HYGIENE INSTRUCTIONS Routine 2024 8:30 AM EDT INTRAORAL - COMPLETE SERIES OF RADIOGRAPHIC IMAGES Routine 02/09/2025 8:30 AM EDT documented in this encounter Visit Diagnoses Diagnosis Encounter for dental examination- Primary Stage 2 grade B generalized periodontitis per AAP/EFP 2017 classification documented in this encounter
--- OUTSIDE RECORDS SUMMARY | 2025-02-12 07:50 | XMS_ITS | Encounter Summary ---
Author Organization [employer] Address [address] [place] [address] [address] [place] [address] Care Team Providers Care Manager Tax Name Role Phone Unavailable Primary Care Provider Unavailabl e Encounter Details Date Type Department Care Team (Late st Contact Info) Description 04/19/2023 Orders Only [facility] OPTOMETRY [address] [place] [address] Diana Matute, ELIJAH [address] [place] [address] Social History Tobacco Use Types Packs/Day Years Used Date Smoking Tobacco: Former Cigarettes Comments:Smoked in 20's stop ped by 26 Sex and Gender Information Value Date Recorded Sex Assigned at Male 04/17/2023 8:51 PM EDT Legal Sex Male 5:37 PM EDT Gender Identity Male 04/17/2023 8:51 PM EDT Sexual Orientation Straight 04/17/2023 8: 51 PM EDT COVID-19 Exposure Response Date Recorded In the last 10 days, have yo u been in contact with someone who was confirmed or suspected to have Coronavirus/COVID-19? No / Unsure 04/19/2023 3:03 PM EDT documented as of this encounter Plan of Treatment Upcoming Encounters Date Type Department Care Team (Late st Contact Info) Description 04/21/2025 4:00 PM EDT Office Visit [facility] OPTOMETRY [address] [place] [address] Diana Matute, OD [address] [place] [address] 06/15/2025 8:30 AM EDT Office Visit [facility] DENTAL [address] [place] [address] Mickie Panda documented as of this encounter Visit Diagnoses Not on filedocumented in this encounter
[2025-02-12 11:06] LABS: MANUAL DIFF FLAG NO
[2025-02-12 11:21] LABS: Basophils Percent Auto 0.5 % (0-2); Eosinophils Absolute Auto 0.1 X10*3/uL (0.0-0.4); Eosinophils Percent Auto 2.8 % (0-4); Hemoglobin 14.6 g/dl (14.0-18.0); Imm Gran Abs Auto 0.01 X10*3/uL (0.00-0.03); Imm Gran Pct Auto 0.3 % (0.0-0.4); Lymphocytes Absolute Auto 1.5 X10*3/uL (1.2-4.9); Lymphocytes Percent Auto 38.3 % (20-40); Mean Corpuscular Hemoglobin 31.1 pg (27.0-33.0); Mean Corpuscular Volume 91.7 fL (80.0-98.0); Mean Platelet Volume 11.3 fL (9.4-12.4); Monocytes Absolute Auto 0.4 X10*3/uL (0.1-1.2); Monocytes Percent Auto 8.9 % (2-11); Neutrophils Absolute Auto 1.9 x10*3/uL (2.0-8.3); Neutrophils Percent Auto 49.2 % (45-73); Platelet Count 168 X10*3/uL (160-400); Red Blood Count 4.69 X10*6/uL (4.60-5.80); Red Cell Distribution Width 12.4 % (11.0-16.0); White Blood Count 3.9 X10*3/uL (4.8-10.8)
[2025-02-12 11:47] LABS: Appearance Urine Clear; Color Urine Yellow; Glucose Urine UA Negative (Negative); Leukocyte Esterase Urine Negative (Negative); Nitrite Urine Negative (Negative); Specific Gravity - Urine >= 1.030 (1.005-1.025); Urine Blood Negative (Negative); Urine Ketones Negative (Negative); Urine Protein Negative (Neg-Trace)
[2025-02-12 11:49] LABS: Estimated Average Glucose 128 mg/dL; Hemoglobin A1C 162.1621 umol/L; Hemoglobin A1c % 6.1 % (<6.0); Total Hemoglobin (HGBA1C) 3763.6839 umol/L
[2025-02-12 11:55] LABS: Prostate Specific Antigen Scr 1.27 ng/mL (<0.05-4.0)
[2025-02-12 11:59] LABS: Alanine Aminotransferase 26 U/L (0-40); Albumin Level 4.2 g/dL (3.5-5.0); Alkaline Phosphatase 52 U/L (39-117); Anion Gap 11 (12-20); Aspartate Amino Transferase 20 U/L (5-37); Bilirubin Total 1.7 mg/dL (0.0-1.0); Blood Urea Nitrogen 19 mg/dL (9-16); Calcium 9.1 mg/dL (8.4-10.2); Carbon Dioxide 29 mmol/L (22-29); Chloride 108 mmol/L (96-108); Cholesterol 132 mg/dL (<200); Estimated Glomerular Filt Rate > 60; Glucose Fasting 136 mg/dL (60-99); HDL Cholesterol 51 mg/dL (>40); LDL Cholesterol Calculated 66 mg/dL (<100); Potassium 4.7 mmol/L (3.3-5.1); Sodium 143 mmol/L (135-145); Total Protein 6.5 g/dL (6.5-8.0); Triglycerides 75 mg/dL (<150)
[2025-02-12 12:00] LABS: TSH reflex Free T4 1.18 uIU/mL (0.32-4.0)
[2025-02-12 12:11] LABS: Creatinine Urine 166.73 mg/dL; Microalbum/Creatinine Ratio Ur 3.5 ug/mg cr (<30)
== END 2025-02-12 07:48 | disposition home or self-care (01) ==
LOC: HO.WFDLDS 07:47
PROVIDERS: Visit Provider Family Medicine
DX: Z00.00 Encounter for general adult medical examination without abnormal findings (principal); I10 Essential (primary) hypertension; Z12.5 Encounter for screening for malignant neoplasm of prostate; E11.9 Type 2 diabetes mellitus without complications
CPT/HCPCS: 36415; 80053; 80061; 81003; 82043; 82570; 83036; 84153; 84443; 85025

== ENCOUNTER 2025-03-11 11:57 | Outpatient (AMB) | payer MEDICARE, SELFPAY ==
--- OUTSIDE RECORDS SUMMARY | 2025-03-11 12:07 | XMS_ITS | Encounter Summary ---
Author Organization [employer] Address [address] [facility] [address]t [place] [address] Care Team Providers Care Set Off Blocker Name Role Phone Unavailable Primary Care Provider Unavailabl e Encounter Details Date Type Department Care Team (Late st Contact Info) Description 04/19/2023 Orders Only [facility] OPTOMETRY [address] [place] [address] Diana Matute, ELIJAH [address] [place] [address] Social History Tobacco Use Types Packs/Day Years [...] Description 04/21/2025 4:00 PM EDT Office Visit [facility] OPTOMETRY [address] [place] [address] Diana Matute, OD [address] [place] [address] 06/15/2025 8:30 AM EDT Office Visit [facility] DENTAL [address] [place] [address] Mickie Panda documented as of this encounter Visit Diagnoses Not on filedocumented in this encounter
--- NOTE | 2025-03-11 12:16 | A.OFFPC_ITS ---
Vital Signs 03/11/25 12:24 Height 5 ft 7 in Weight 165 lb 4 oz BMI 25.9 BP 128/60 Blood Pressure Location Rt brachial Position Sitting Respiration 16 Pulse 67 Pulse Source Pulse Oximeter Temp 97.8 F Temp Source Oral Pulse Oximetry (%) 98 Oxygen Delivery Method Room Air Intake Visit Reasons: CPE with f/u labs and health maint. - see comments Intake Note: scheduled for cpe for labs and health maint follow-up and patient has no concern at this time Allergies bee pollen [bee stings] Allergy (Severe, Verified 03/11/25 12:18) Anaphylaxis codeine Adverse Reaction (Intermediate, Verified 03/11/25 12:18) Vomiting Medication List - Last Reconciled 03/11/25 by John Gonzales MD acetaminophen 650 mg (2 x 325 mg) PO Q6H PRN 30 days docusate sodium (Colace) 100 mg PO BID 30 days epinephrine (EpiPen 2-Mo) 0.3 mg (0.3 mL) IM Q4H PRN 30 days finasteride 5 mg PO DAILY 90 days gabapentin 300 mg PO BID PRN 90 days glipizide ER 2.5 mg PO DAILY 90 days glipizide ER 10 mg PO DAILY 90 days ibuprofen 800 mg PO Q8H PRN 30 days losartan 50 mg (2 x 25 mg) PO DAILY 90 days pravastatin 20 mg PO DAILY 90 days sennosides (Natural Senna Laxative) 17.2 mg (2 x 8.6 mg) PO DAILY PRN 14 days tamsulosin 0.4 mg PO DAILY 90 days valacyclovir 500 mg PO DAILY 90 days walker Folding front wheeled walker Tobacco use date assessed: 03/11/25 Fall risk assessment: No Falls in past year Dental Screening Dental Screen Date: 03/11/25 Did you have a dental visit in the last 12 months?: Yes Did you have a dental problem in the last 6 months where you did not have access to dental care?: No Was dental information given to patient?: No HPI CPE with f/u labs and health maint. - see comments HPI Details 69 y/o male presents for a CPE with f/u labs and health maintenance. Last A1c 02/12/25 6.1%. Pt notes he is no longer taking glipizide. Has an upcoming eye exam appt. in May. PSA 1.27. Denies any changes to his urine stream. BP today 128/60, 67p. He is on losartan 50mg He keeps himself active but notes he has not been walking much. Reports 1 episode of chest discomfort with exertion while gardening. [facility] Medical History (Updated 03/11/25 @ 12:56 by Jl Child) Right knee pain BPH (benign prostatic hyperplasia) Osteoarthritis Dermatofibroma Tubular adenoma Diverticulosis History of benign prostatic hyperplasia Elevated cholesterol HTN (hypertension) Diabetes Surgical History Hx of total knee replacement H/O colonoscopy History of open reduction and internal fixation (ORIF) procedure History of appendectomy Family History Father CVD (cardiovascular disease) Cancer of prostate Mother Diabetes Brother No problems noted. Brother No problems noted. Sister No problems noted. Son No problems noted. Son No problems noted. 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 1. Little interest or pleasure in doing things: not at all 2. Feeling down, depressed, or hopeless: not at all 3. Trouble falling or staying asleep, or sleeping too much: more than half the days 4. Feeling tired or having little energy: not at all 5. Poor appetite or overeating: not at all 6. Feeling bad about yourself - or that you are a failure or have let yourself or your family down: not at all 7. Trouble concentrating on things, such as reading the newspaper or watching television: several days 8. Moving or speaking so slowly that other people could have noticed. Or the opposite - being so fidgety or restless that you have been moving around a lot more than usual: not at all 9. Thoughts that you would be better off or of hurting yourself in some way: not at all Total score: 3 Source: Developed by Drs. Nik Hills, Janelle Dang, Danny Romo and colleagues, with an educational tiffanie from [employer]. Thrive Questionnaire Date Thrive assessed: 02/12/25 I am a: Patient What is your living situation today?: I have a steady place to live Within the past 12 months, did the food you bought not last and you didn't have the money to get more?: Never true Within the past 12 months, did you worry whether your food would run out before you got money to buy more?: Never true Do you have trouble paying for medicines?: No Do you have trouble getting transportation to medical appointments?: No Do you have trouble paying your heating and electricity bill?: No Do you have trouble taking care of your child, family member or friend?: No Do you have trouble with day-to-day activities such as bathing, preparing meals, shopping, managing finances, etc.?: No Are you currently unemployed and looking for a job?: No Are you interested in more education?: I choose not to answer this question Please select the resources that you would like help with: None Currently or been in a relationship where the following occur: No concerns reported THRIVE Score: 0 AUDIT C Alcohol Use Questionnaire (AUDIT-C) 1. How often do you have a drink containing alcohol?: Never 2. How many drinks containing alcohol do you have on a typical day when you are drinking?: 1 or 2 3. How often do you have six or more drinks on one occasion?: Never Total Score: 0 IVETT-7 AMB Questionnaire IVETT-7 Date IVETT - 7 assessed: 01/14/24 Feeling nervous, anxious, or on edge: 0 = Not at all Not being able to stop or control worryin = More than half the days Worrying too much about different things: 2 = More than half the days Trouble relaxin = More than half the days Being so restless that it is hard to sit still: 2 = More than half the days Becoming easily annoyed or irritable: 1 = Several days Feeling afraid as if something awful might happen: 0 = Not at all Total IVETT-7 score (0-4 normal; 5-9 mild; 10-14 moderate; 15-21 severe): 9 Source: Developed by Drs. Nik Hills, Janelle Dang, Danny Romo and colleagues, with an educational tiffanie from [employer]. Review of Systems Const Denies chills, Denies fatigue, Denies fever(s), Denies headache(s) and Denies weakness Eyes Denies change in vision ENT Denies dizziness, Denies headache(s), Denies hearing loss, Denies nasal congestion, Denies sinus pain, Denies sinus pressure and Denies sore throat Card Denies chest pain, Denies lightheadedness, Denies dyspnea and Denies other (palpitations) Resp Denies cough, Denies dyspnea and Denies wheezing GI Denies abdominal pain, Denies melena, Denies hematochezia, Denies change in bowel habits, Denies dyspepsia and Denies nausea Denies hematuria and Denies dysuria Musc Denies abnormal gait, Denies myalgias, Denies arthralgias, Denies numbness and Denies tingling Skin/Breast Denies rash, Denies unusual bruising and Denies wounds Neuro Denies abnormal gait, Denies dizziness, Denies headache(s), Denies memory loss, Denies numbness, Denies Sensory deficit (Neuro), Denies tingling and Denies weakness Psych Denies anxiety, Denies depression and Denies memory loss Endo Denies cold intolerance, Denies fatigue, Denies heat intolerance, Denies polydipsia and Denies polyuria Ankit/Lymph Denies easy bleeding and Denies easy bruising Aller/Immun Denies wheezing Physical exam (Primary Care) Vital Signs: Last Vital Signs Temp 97.8 F 03/11/25 12:24 Pulse 67 03/11/25 12:24 Resp 16 03/11/25 12:24 BP 128/60 03/11/25 12:24 Pulse Ox 98 03/11/25 12:24 Oxygen Delivery Method Room Air 03/11/25 12:24 BMI result Body Mass Index 25.9 Tobacco/Smoking Status: Tobacco use Status Tobacco use date assessed 03/11/25 03/11/25 12:22 Patient Tobacco Use Status Former Tobacco user 03/11/25 12:18 Tobacco use type Cigarette 03/11/25 12:18 e-Cigarette/Vaping Use Never Used 03/11/25 12:18 PHQ-9: PHQ-9 Score PHQ-9: Total score 3 03/11/25 12:18 Thrive Assessment: Date of Thrive Assessment Date Thrive assessed 02/12/25 03/11/25 12:18 Currently or been in a relationship where the following occur: No concerns reported Const General: no acute distress, well developed, alert and awake Nutritional Appearance: well nourished Orientation/consciousness: patient oriented x3 HENMT Head: Yes normocephalic and Yes atraumatic Ears: hearing grossly normal bilaterally and TM's normal bilaterally General nose exam: Normal external nose present and Normal nares present Mouth: Normal oral and palatal mucosa present and moist mucous membranes Teeth and gingiva: dentition normal Throat: Yes posterior oropharynx normal Eyes General: appearance normal, both eyes and all related structures Pupils: Equal, round and reactive pupils present and Pupil accommodation reflex normal EOM: EOMs intact bilaterally Neck Neck: Yes normal visual inspection, Yes no lymphadenopathy and Yes trachea midline Thyroid: Thyroid normal Carotids: no bruits Lymphatic: no lymphadenopathy noted Chest Chest palpation & inspection: normal inspection of the chest Resp Effort & Inspection: normal respiratory effort Auscultation: clear to auscultation bilaterally Cardio Rate: regular rate Rhythm: regular rhythm Heart sounds: S1 normal heart sound present, S2 normal heart sound present, no gallops, no murmurs and no rubs Bruits: no abdominal aortic bruits and no carotid bruits GI Palpation (GI): No Abdominal aortic bruit present, Soft to palpation, nontender, No hepatosplenomegaly present and No Rebound tenderness present Auscultation: normal bowel sounds General: Yes no CVA tenderness Back/Spine/Pelvis Back: no CVA tenderness Cervical Spine: cervical ROM normal and No Cervical spine tenderness Thoracic/Lumbar Spine: thoraco-lumbar ROM normal, No pain with thoraco-lumbar ROM, No thoracic spinal tenderness and No lumbar spinal tenderness Skin Lesions: no lesions Rashes: no rashes Trauma: no lacerations or abrasions Wounds: no wounds Nails: normal Neuro General: patient oriented x3 Cranial nerves: Yes Equal, round and reactive pupils present Cognition (Neuro): normal cognition Gait exam (Neuro): Normal gait present Motor exam (neuro): 5/5 motor strength present throughout Sensory Exam: No Sensory deficit (Neuro) Deep tendon reflexes (DTR's): Right patellar reflex intensity grade: 2+ and Left patellar reflex intensity grade: 2+ Extrem General: Yes normal to inspection and No edema Psych Appearance: grossly normal Affect: normal affect Attitude: cooperative Thought process: Normal thought process present Coding Level of Care Code Est Pt Level 4 (48177) Diagnoses Hyperlipidemia E78.5 Diabetes type 2, controlled E11.9 Chest discomfort R07.89 Essential (primary) hypertension I10 Screening for colon cancer Z12.11 Screening for prostate cancer Z12.5 Screening for AAA (abdominal aortic aneurysm) Z13.6 Adult general medical exam Z00.00 Assessment & Plan Assessment & Plan (1) Hyperlipidemia: Code(s): E78.5 - Hyperlipidemia, unspecified Category: Medical Plan: Lipids?well?controlled Continue?pravastatin (2) Diabetes type 2, controlled: Code(s): E11.9 - Type 2 diabetes mellitus without complications Category: Medical Plan: A1c?6.1%, earlier?this?month. No?longer?taking?any?medications?for?diabetes. Continue?diet?control (3) Chest discomfort: Code(s): R07.89 - Other chest pain Category: Medical Plan: One?episode?of?chest?discomfort?after?exertion?while?gardening EKG: ?Normal?sinus?rhythm,?normal?axis,?normal?intervals,?no?hypertrophy,?no ?ST-T-wave?changes Single?episode?and?he?has?exerting?himself?without?any?problems Does?not?appear?to?be?related?to?his?heart Resolved. He?will?let?me?know?if?he?has?any?further?problems (4) Essential (primary) hypertension: Code(s): I10 - Essential (primary) hypertension Category: Medical Plan: Blood?pressure?is?well?controlled.??Goal?is?less?than?140/90 Continue?current?medication (5) Screening for colon cancer: Code(s): Z12.11 - Encounter for screening for malignant neoplasm of colon Category: Medical Plan: Also, Pt had Colonoscopy in Jul. Advised repeat colonoscopy in 5 yrs for h/o Adenomatous colon polyps. (6) Screening for prostate cancer: Code(s): Z12.5 - Encounter for screening for malignant neoplasm of prostate Category: Medical Plan: PSA?slightly?increased?from?prior?measurement. No?changes?in?urine?stream No?blood?in?urine Will?continue?annual?screening Continue?finasteride He?will?let?me?know?if?he?has?any?changes?in?symptoms (7) Screening for AAA (abdominal aortic aneurysm): Code(s): Z13.6 - Encounter for screening for cardiovascular disorders Category: Medical Plan: No?abdominal?bruit Offered?ultrasound?screening?and?patient?declines?for?now. (8) Adult general medical exam: Code(s): Z00.00 - Encounter for general adult medical examination without abnormal findings Category: Medical Plan: 69-year-old?male?presents?for?an?extended?exam Encouraged?healthy?diet?with?active?lifestyle?and?plenty?of?exercise Orders: Orders Comprehensive [place]. Panel Fast 03/10/25 Z00.00 - Encounter for general adult medical examination without abnormal findings Lipid Panel 03/10/25 Z00.00 - Encounter for general adult medical examination without abnormal findings Complete Blood Count Auto Diff 03/10/25 Z00. - Encounter for general adult medical examination without abnormal findings Microalbumin, Random (w Creat) 03/10/25 I10 - Essential (primary) hypertension Prostate Specific Antigen Scr 03/10/25 Z12.5 - Encounter for screening for malignant neoplasm of prostate TSH reflex Free T4 03/10/25 Z00.00 - Encounter for general adult medical examination without abnormal findings UA CC w/rflx Micro + Cult 03/10/25 Z00.00 - Encounter for general adult medical examination without abnormal findings Medications: Discontinued glipizide ER Discontinued Reason: Doctor's Order 10 mg PO DAILY 90 days 90 tabs 2RF
[2025-03-11 12:24] VITALS: BP 128/60; PULSE 67; RESP 16; TEMP 36.6; O2SAT 98; BMI 25.9
== END 2025-03-11 13:19 | disposition home or self-care (01) ==
LOC: HO.HMCFM 11:58
PROVIDERS: PCP Family Medicine; Visit Provider Family Medicine
DX: E78.5 Hyperlipidemia, unspecified (principal); E11.9 Type 2 diabetes mellitus without complications; R07.89 Other chest pain; I10 Essential (primary) hypertension; Z12.11 Encounter for screening for malignant neoplasm of colon; Z12.5 Encounter for screening for malignant neoplasm of prostate; Z13.6 Encounter for screening for cardiovascular disorders; Z00.00 Encounter for general adult medical examination without abnormal findings

== ENCOUNTER → 2025-03-11 11:57 | Outpatient (BNVA) | payer MEDICARE, SELFPAY | PROVIDERS: PCP Family Medicine; Visit Provider Family Medicine | DX: Z00.00 Encounter for general adult medical examination without abnormal findings (principal); I10 Essential (primary) hypertension; E78.5 Hyperlipidemia, unspecified; E11.9 Type 2 diabetes mellitus without complications; R07.89 Other chest pain | CPT/HCPCS: 99212 ==

== ENCOUNTER 2025-08-27 08:32 | Outpatient (REF) | payer MEDICARE, SELFPAY ==
[2025-08-27 08:42] LABS: MANUAL DIFF FLAG NO
--- OUTSIDE RECORDS SUMMARY | 2025-08-27 08:44 | XMS_ITS | Encounter Summary ---
Author Organization [email or web address] Address [address] [facility] [address] [place] [address] Care Team Providers Care Film Sorter Name Role Phone Unavailable Primary Care Provider Unavailabl e Encounter Details Date Type Department Care Team (Late st Contact Info) Description 04/19/[address] [facility] OPTOMETRY [address] [place] [address] Diana Matute OD [address] [place] [address] Social History Tobacco Use Types Packs/Day Years [...] Care Team (Late st Contact Info) Description 11/17/2025 10:10 AM EST Office Visit [facility] DENTAL [address] [place] [address] Mickie Panda 04/22/2026 4:00 PM EDT Office Visit [facility] OPTOMETRY [address] [place] [address] Diana Matute, ELIJAH [address] [place] [address] documented as of this encounter Visit Diagnoses Not on filedocumented in this encounter
--- OUTSIDE RECORDS SUMMARY | 2025-08-27 08:44 | XMS_ITS | Clinical Summary ---
Author Organization [facility] Address [address] [address] Phone Care Team Providers Care Auto Polisher Name Role Phone Unavailable Primary Care Provider Unavailabl e Allergies Active Allergy Reactions Criticality Noted Date Comments Bee Pollen High 08/16/2023 anaphylaxis Codeine 08/16/2023 vomiting Medications gabapentin (NEURONTIN) 300 MG capsule Take 300 mg by mouth daily. at bed time 3 Active glipiZIDE (GLUCOTROL XL) 10 MG 24 hr tablet Take 10 mg by mouth 2 (two) times a day (once in the morning and once in the afternoon). 3 Active acetaminophen (TYLENOL) 500 mg capsule Take 1,000 mg by mouth every 8 (eight) hours as needed for pain (specific location in comments) (R knee). 3 Active ondansetron (ZOFRAN-ODT) 8 MG disintegrating tablet Take 8 mg by mouth 2 (two) times a day as needed for nausea. 3 Active oxyCODONE 5 MG immediate release tablet Take 5 mg by mouth every 4 (four) hours as needed for pain (specific location in comments) (R knee). 3 Active aspirin 325 MG tablet Take 325 mg by mouth 2 (two) times a day. 3 Active celecoxib (CELEBREX) 200 MG capsule Take 200 mg by mouth 2 (two) times a day. 3 Active finasteride (PROSCAR) 5 mg tablet Take 5 mg by mouth daily. 3 Active losartan (COZAAR) 25 MG tablet Take 25 mg by mouth daily. 3 Active tamsulosin (FLOMAX) 0.4 mg Cap Take 0.4 mg by mouth daily. Active valACYclovir (VALTREX) 500 MG tablet Take 500 mg by mouth daily. Active Social History Tobacco Use Types Packs/Day Years Used Date Smoking Tobacco: Never Assessed Home Health Assessment: Transportation Answer Date Recorded Lack of Transportation (Medical) No 08/28/2023 Lack of Transportation (Non-Medical) Yes 08/28/2023 Patient Unable or Declines to Respond No 08/28/2023 Education Answer Date Recorded Are you interested in more education? Not on thomas e 08/14/2023 Are you concerned about learning? Not on file 08/14/2023 No 08/14/2023 No 08/14/2023 Digital Access Answer Date Recorded No 08/14/2023 No 08/14/2023 Reliable internet access at home? Not on file 08/14/2023 Device with a working camera? Not on file Sex and Gender Information Value Date Recorded Sex Assigned at Not on file Legal Sex Male 9:54 PM EDT Gender Identity Not on file Sexual Orientation Not on file Last Filed Vital Signs Vital Sign Reading Time Taken Comments Blood Pressure 136/64 08/28/2023 10:02 AM EST Pulse 73 08/28/2023 10:02 AM EST Temperature 36.3 C (97.4 F) 08/26/2023 9:59 AM EST Respiratory Rate 12 08/26/2023 9:59 AM EST Oxygen Saturation 98% 08/28/2023 10:02 AM EST Inhaled Oxygen Concentration - - Weight - - Height - - Body Mass Index - - Plan of Treatment Health Maintenance Due Date Last Done Comments Adult Td,Tdap Booster 1956 CREATININE LEVEL 1956 LIPID PANEL 1956 POTASSIUM LEVEL 1956 DEPRESSION SCREENING 1968 SMOKING Hx and SMOKELESS TOB ACCO SCREENING 1969 HEPATITIS C SCREENING 1974 COLOGUARD 2001 COLONOSCOPY 2001 COLORECTAL CANCER SCREENING 2001 FIT TEST 2001 FOBT 2001 SIGMOIDOSCOPY 2001 VIRTUAL COLONOSCOPY 2001 PNEUMOCOCCAL VACCINES (50+ y ears) (1 of 1 - PCV) 2006 ZOSTER VACCINES (1 of 2) 2006 INFLUENZA VACCINE (#1) 2025 COVID-19 VACCINE ( - 2024-2 6 season) 2025 RSV VACCINE (1 - 1-dose 75+ series) 2031 HEPATITIS A VACCINES Aged Out No long er eligible based on patient's age to complete this topic HIB VACCINES Aged Out No longer eligi ble based on patient's age to complete this topic IPV VACCINES Aged Out No longer eligi ble based on patient's age to complete this topic MENINGOCOCCAL VACCINES (ACWY) Aged Out No longer eligible based on patient's age to complete this topic MENINGOCOCCAL VACCINES (B) Aged Out N o longer eligible based on patient's age to complete this topic Medical Devices Not on file Insurance MEDICARE PART A & B [facility] MEDEX SUPPLEMENT [facility] Address: [facility] [id number] [place] [address] MEDICARE PART A & B [employer] MEDEX SUPPLEMENT MEDICARE PART A & B [employer] MEDEX SUPPLEMENT MEDICARE PART A & B [employer] MEDEX SUPPLEMENT MEDICARE PART A & B [employer] MEDEX SUPPLEMENT MEDICARE PART A & B [employer] MEDEX [place]LE[place] [address] [place] [address] INSURANCE Additional Source Comments The information contained in this document represents components of the legal health record. It is not the complete legal health record.[facility]
--- OUTSIDE RECORDS SUMMARY | 2025-08-27 08:44 | XMS_ITS | Clinical Summary ---
Author Organization [employer] Address [address] [facility] [address] [place] [address] Care Team Providers Care Sole Rounder Name Role Phone Unavailable Primary Care Provider [...] MG 24 hr capsule Oral for 90 Acti ve valACYclovir (Valtrex) 500 MG tablet 1 tablet in the morning. Active losartan (Cozaar) 25 MG tablet Oral for 90 Active glipiZIDE XL (Glucotrol XL) 10 MG 24 hr tablet Take 10 mg by mouth in the morning. 02/18/2023 Active ibuprofen 400 MG tablet Take 400 mg by mouth every 6 (six) hours if needed for moderate pain. Active Active Problems Problem Noted Date Diagnosed Date Primary hypertension 04/19/2023 Other hyperlipidemia 04/19/2023 Type 2 diabetes mellitus wit hout complication, without long-term current use of insulin 04/03/2023 Encounters Date Type Department Care Team Description 07/16/2025 10:10 AM EDT Office Visit [facility] DENTAL [address] [place] [address] Radha Lopez LLD Stage 2 grade B generalized periodontitis per AAP/EFP 2017 classification (Primary Dx) 07/09/2025 Travel 06/17/2025 3:00 PM EDT Office Visit [facility] DENTAL [address] [place] [address] Mickie Panda Encounter for dental examination (Primary Dx); Periodontal disease from Last 3 Months Social History Tobacco [...] Sign Reading Time Taken Comments Blood Pressure 136/83 07/16/2025 10:27 AM EDT Pulse 73 07/16/2025 10:27 AM EDT Temperature 36.2 C (97.2 F) 04/20/2024 4:06 PM EDT Respiratory Rate - - Oxygen Saturation - - Inhaled Oxygen Concentration - - Weight - - Height - - Body Mass Index - - Plan of Treatment Upcoming Encounters Date Type Department Care Team (Late st Contact Info) Description 11/17/2025 10:10 AM EST Office Visit [facility] DENTAL [address] [place] [address] Mickie Panda 04/22/2026 4:00 PM EDT Office Visit [facility] OPTOMETRY [address] [place] [address] Diana Matute, OD [address] [place] [address] Health Maintenance Due Date Last Done Comments [...] Vaccine: 50+ Years (2 of 2 - PPSV23, PCV20, or PCV21) 09/07/2015 07/13/2015 Hepatitis B Vaccines (3 of 3 - 19+ 3-dose series) 06/26/2018 05/01/2018, 10/31/2017 COVID-19 Vaccine ( season) 2025 10/03/2023, 07/28/2022, 08/12/2021, Additional history exists Dental Oral Exam 01/15/2026 07/16/2025, , 08/05/2024, Additional history exists Dental Prophylaxis 01/15/2026 07/16/2025, 0 02/09/2025, 08/05/2024, Additional history exists Dental X-Ray: Bitewings 02/10/2026 02/10/20, 08/05/2024, 11/02/2021, Additional history exists Tobacco Screening 07/16/2026 07/16/2025 Eye Exam 04/21/2027 04/21/2025, 07/0 06/2025, 04/21/2025, Additional history exists DTaP/Tdap/Td Vaccines (3 - Td or Tdap) 10/31/2027 10/31/2017, 06/24/2012, 01/08/2005 Dental X-Ray: Full Mouth 02/11/2028 02/09/2025, 0 12/2019 RSV Patients and Patients Aged 60 years or older Completed 10/19/2024 Influenza Vaccine Completed 07/10/2025, , 10/03/2023, Additional history exists HIB Vaccines Aged Out [...] patient's age to complete this topic Meningococcal B Vaccine Aged Out No l onger eligible based on patient's age to complete [...] Procedure Name Priority Date/Time Associated Diagnosis Comments ORAL HYGIENE INSTRUCTIONS Routine 2024 10:10 AM EDT Full PROPHYLAXIS - ADULT Routine 025 10:10 AM EDT PERIODIC ORAL EVALUATION - ESTABLISHED PATIENT Routine 07/16/2025 10:10 AM EDT NO CHARGE VISIT Routine 06/17/2025 3:00 PM EDT INTRAORAL - COMPLETE SERIES OF RADIOGRAPHIC IMAGES Routine 02/09/2025 8:30 AM EDT from Last 3 Months or Most Recently Relevant to Health Maintenance Insurance MEDICARE Member Subscriber Plan / Payer (Ef fective 2023-Present) Name:Nadir Espinoza Member ID:[id number] Relation to Subscriber:Self Name:Nadir Espinoza Subscriber ID:[id number] Payer ID:[facility] Group ID:Not on file Type:Medicare Address: [facility] [address] [address] [facility] [place] [id number]
--- OUTSIDE RECORDS SUMMARY | 2025-08-27 08:44 | XMS_ITS | Encounter Summary ---
Author Organization [employer] Address [address] [facility] 7 [place] [address] Care Team Providers Care Sports Cartoonist Name Role Phone Unavailable Primary Care Provider [...] Description 11/17/2025 10:10 AM EST Office Visit [facility] DENTAL [address] [place] [address] Mickie Panda 04/22/2026 4:00 PM EDT Office Visit [facility] OPTOMETRY [address] [place] [address] Diana Matute OD [address] [place] [address] documented as of this encounter Visit Diagnoses Not on filedocumented in this encounter
--- OUTSIDE RECORDS SUMMARY | 2025-08-27 08:44 | XMS_ITS | Encounter Summary ---
Author Organization [employer] Address [address] [facility] 7 [place] [address] Care Team Providers Care Early Morning Name Role Phone Unavailable Primary Care Provider [...] Description 11/17/2025 10:10 AM EST Office Visit [facility] DENTAL [address] [place] [address] Mickie Panda 04/22/2026 4:00 PM EDT Office Visit [facility] OPTOMETRY [address] [place] [address] Diana Matute OD [address] [place] [address] documented as of this encounter Visit Diagnoses Not on filedocumented in this encounter
--- OUTSIDE RECORDS SUMMARY | 2025-08-27 08:44 | XMS_ITS | Encounter Summary ---
Author Organization [employer] Address [address] [place] [address] 7 [place] [address] Care Team Providers Care Car Pincher Name Role Phone Unavailable Primary Care Provider [...] Description 11/17/2025 10:10 AM EST Office Visit [facility] DENTAL [address] [place] [address] Mickie Panda 04/22/2026 4:00 PM EDT Office Visit [facility] OPTOMETRY [address] [place] [address] Diana Matute, ELIJAH [address] [place] [address] documented as of this encounter Visit Diagnoses Not on filedocumented in this encounter
--- OUTSIDE RECORDS SUMMARY | 2025-08-27 08:44 | XMS_ITS | Encounter Summary ---
Author Organization [employer] Address [address] [place] [address] 7 [place] [address] Care Team Providers Care Cnc Lathe Machine Operator Name Role Phone Unavailable Primary Care Provider [...] Description 11/17/2025 10:10 AM EST Office Visit [facility] DENTAL [address] [place] [address] Mickie Panda 04/22/2026 4:00 PM EDT Office Visit [facility] OPTOMETRY [address] [place] [address] Diana Matute, ELIJAH [address] [place] [address] documented as of this encounter Visit Diagnoses Not on filedocumented in this encounter
[2025-08-27 09:11] LABS: Hematocrit 40.0 % (42.0-52.0); Hemoglobin 13.8 g/dl (14.0-18.0); Imm Gran Abs Auto 0.01 X10*3/uL (0.00-0.03); Imm Gran Pct Auto 0.2 % (0.0-0.4); Lymphocytes Absolute Auto 1.6 X10*3/uL (1.2-4.9); Mean Corpuscular HGB Conc 34.5 g/dl (31.0-36.0); Mean Corpuscular Hemoglobin 32.0 pg (27.0-33.0); Mean Corpuscular Volume 92.8 fL (80.0-98.0); NRBC Abs Auto 0.000 X10*3/uL (0.0-0.012); NRBC Pct Auto 0.0 /100WBC (0.0-0.2); Platelet Count 146 X10*3/uL (160-400); Red Blood Count 4.31 X10*6/uL (4.60-5.80); White Blood Count 4.2 X10*3/uL (4.8-10.8)
[2025-08-27 09:40] LABS: Appearance Urine Clear; Glucose Urine UA Negative (Negative); PH 6.0 (5.0-9.0); Specific Gravity - Urine 1.015 (1.005-1.025)
[2025-08-27 09:46] LABS: Alanine Aminotransferase 18 U/L (0-40); Albumin Level 4.3 g/dL (3.5-5.0); Alkaline Phosphatase 51 U/L (39-117); Anion Gap 14 (12-20); Aspartate Amino Transferase 19 U/L (5-37); Blood Urea Nitrogen 18 mg/dL (9-16); Calcium 9.1 mg/dL (8.4-10.2); Carbon Dioxide 25 mmol/L (22-29); Chloride 109 mmol/L (96-108); Cholesterol 133 mg/dL (<200); Estimated Glomerular Filt Rate > 60; HDL Cholesterol 49 mg/dL (>40); Potassium 4.8 mmol/L (3.3-5.1); Sodium 143 mmol/L (135-145); Total Protein 6.3 g/dL (6.5-8.0); Triglycerides 54 mg/dL (<150)
== END 2025-08-27 08:33 | disposition home or self-care (01) ==
LOC: HO.LAB 08:32
PROVIDERS: PCP Family Medicine; Visit Provider Family Medicine
DX: Z00.00 Encounter for general adult medical examination without abnormal findings (principal); Z12.5 Encounter for screening for malignant neoplasm of prostate; I10 Essential (primary) hypertension
CPT/HCPCS: 36415; 80053; 80061; 81003; 82043; 82570; 84153; 84443; 85025

== ENCOUNTER 2025-09-13 08:23 | Outpatient (AMB) | payer MEDICARE, SELFPAY ==
[2025-09-13 08:31] VITALS: BP 132/84; PULSE 57; TEMP 36.8; O2SAT 99; BMI 25.3
--- NOTE | 2025-09-13 08:31 | MHC.PC.OV ---
Vital Signs 09/13/25 08:31 Height 5 ft 7 in Weight 161 lb 8 oz BMI 25.3 BP 132/84 Blood Pressure Location Rt brachial Position Sitting Pulse 57 Pulse Source Pulse Oximeter Temp 98.2 F Temp Source Temporal Artery Scan Pulse Oximetry (%) 99 Oxygen Delivery Method Room Air Intake Visit Reasons: f/u diet controlled diabetes, HTN Allergies bee pollen (bee stings) Allergy (Severe, Verified 09/13/25 08:34) Anaphylaxis codeine Adverse Reaction (Intermediate, Verified 09/13/25 08:34) Vomiting Medication List - Last Reconciled 09/13/25 by John Gnozales MD acetaminophen 650 mg (2 x 325 mg) PO Q6H PRN 30 days amoxicillin 2,000 mg (4 x 500 mg) PO ONCE epinephrine (EpiPen 2-Mo) 0.3 mg (0.3 mL) IM Q4H PRN 30 days finasteride 5 mg PO DAILY 90 days gabapentin 300 mg PO BID PRN 90 days ibuprofen 800 mg PO Q8H PRN 30 days losartan 50 mg (2 x 25 mg) PO DAILY 90 days pravastatin 20 mg PO DAILY 90 days tamsulosin 0.4 mg PO DAILY 90 days valacyclovir 500 mg PO DAILY 90 days walker Folding front wheeled walker Tobacco use date assessed: 09/13/25 Fall risk assessment: No Falls in past year Last assessed Fall Risk: 09/13/25 Dental Screening Dental Screen Date: 09/13/25 Did you have a dental visit in the last 12 months?: Yes Did you have a dental problem in the last 6 months where you did not have access to dental care?: No Was dental information given to patient?: Patient has dentist HPI f/u diet controlled diabetes, HTN HPI Details 69 y/o male presents to f/u diet controlled diabetes. A1c today 6.8%. Diet controlled. Pt notes he has been keeping himself active and has lost some weight. BP today 132/84, 57p. He is on losartan 50mg daily. HPI Comments History of Present Illness Details Documentation assistance for John Gonzales MD, was provided by Jl Child,? Roller Turner on 09/13/2025 at 8:51 AM EST. I, Dr. Gonzales, have read, observed, and verified documentation. ? PFSH Medical History Right knee pain BPH (benign prostatic hyperplasia) Osteoarthritis Dermatofibroma Tubular adenoma Diverticulosis History of benign prostatic hyperplasia Elevated cholesterol HTN (hypertension) Diabetes Surgical History Hx of total knee replacement H/O colonoscopy History of open reduction and internal fixation (ORIF) procedure History of appendectomy Family History Father CVD (cardiovascular disease) Cancer of prostate Mother Diabetes Brother No problems noted. Brother No problems noted. Sister No problems noted. Son No problems noted. Son No problems noted. 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 1. Little interest or pleasure in doing things: not at all 2. Feeling down, depressed, or hopeless: not at all 3. Trouble falling or staying asleep, or sleeping too much: more than half the days 4. Feeling tired or having little energy: not at all 5. Poor appetite or overeating: not at all 6. Feeling bad about yourself - or that you are a failure or have let yourself or your family down: not at all 7. Trouble concentrating on things, such as reading the newspaper or watching television: several days 8. Moving or speaking so slowly that other people could have noticed. Or the opposite - being so fidgety or restless that you have been moving around a lot more than usual: not at all 9. Thoughts that you would be better off or of hurting yourself in some way: not at all Total score: 3 Source: Developed by Drs. Nik Hills, Danny Bravo and colleagues, with an educational tiffanie from [employer]. Thrive Questionnaire Date Thrive assessed: 02/12/25 I am a: Patient What is your living situation today?: I have a steady place to live Within the past 12 months, did the food you bought not last and you didn't have the money to get more?: Never true Within the past 12 months, did you worry whether your food would run out before you got money to buy more?: Never true Do you have trouble paying for medicines?: No Do you have trouble getting transportation to medical appointments?: No Do you have trouble paying your heating and electricity bill?: No Do you have trouble taking care of your child, family member or friend?: No Do you have trouble with day-to-day activities such as bathing, preparing meals, shopping, managing finances, etc.?: No Are you currently unemployed and looking for a job?: No Are you interested in more education?: I choose not to answer this question Please select the resources that you would like help with: None Currently or been in a relationship where the following occur: No concerns reported THRIVE Score: 0 AUDIT C Alcohol Use Questionnaire (AUDIT-C) 1. How often do you have a drink containing alcohol?: Never 3. How often do you have six or more drinks on one occasion?: Never Total Score: 0 IVETT-7 AMB Questionnaire IVETT-7 Date IVETT - 7 assessed: 03/11/25 Feeling nervous, anxious, or on edge: 0 = Not at all Not being able to stop or control worryin = More than half the days Worrying too much about different things: 2 = More than half the days Trouble relaxin = More than half the days Being so restless that it is hard to sit still: 2 = More than half the days Becoming easily annoyed or irritable: 1 = Several days Feeling afraid as if something awful might happen: 0 = Not at all Total IVETT-7 score (0-4 normal; 5-9 mild; 10-14 moderate; 15-21 severe): 9 Source: Developed by Janelle Leonardo Kurt Kroenke and colleagues, with an educational tiffanie from [employer]. Review of Systems Const Denies chills, Denies fatigue, Denies fever(s), Denies headache(s) and Denies weakness ENT Denies dizziness and Denies headache(s) Card Denies dyspnea Resp Denies cough, Denies dyspnea, Denies wheezing and Denies other (shortness of breath) Musc Denies numbness and Denies tingling Neuro Denies dizziness, Denies headache(s), Denies numbness, Denies tingling and Denies weakness Psych Denies anxiety and Denies depression Endo Denies fatigue Aller/Immun Denies wheezing Physical exam (Primary Care) Vital Signs: Last Vital Signs Temp 98.2 F 09/13/25 08:31 Pulse 57 09/13/25 08:31 BP 132/84 09/13/25 08:31 Pulse Ox 99 09/13/25 08:31 Oxygen Delivery Method Room Air 09/13/25 08:31 BMI result Body Mass Index 25.3 Tobacco/Smoking Status: Tobacco use Status Tobacco use date assessed 09/13/25 09/13/25 08:38 Patient Tobacco Use Status Former Tobacco user 09/13/25 08:38 Tobacco use type Cigarette 09/13/25 08:38 e-Cigarette/Vaping Use Never Used 09/13/25 08:38 PHQ-9: PHQ-9 Score PHQ-9: Total score 3 09/13/25 08:47 Thrive Assessment: Date of Thrive Assessment Date Thrive assessed 02/12/25 09/13/25 08:38 Currently or been in a relationship where the following occur: No concerns reported Const General: well developed; No acute distress Nutritional Appearance: well nourished Orientation/consciousness: patient oriented x3 [facility] Head: Yes normocephalic and Yes atraumatic Eyes General: appearance normal, both eyes and all related structures Pupils: Equal, round and reactive pupils present EOM: EOMs intact bilaterally Resp Effort & Inspection: normal respiratory effort Neuro General: patient oriented x3 and gait normal Cranial nerves: Yes Equal, round and reactive pupils present Psych Affect: normal affect Results AMB Hemoglobin A1c AMB Hemoglobin A1c 6.8 % Last Edit by Suri Bowles CMA on 09/13/25 08:45 Results Reviewed Results Reviewed: Laboratory Last Values Hgb A1c (Clinic) 6.8 % (4.0-6.0) H 09/13/25 08:38 Coding Level of Care Code Est Pt Level 4 (82903) Diagnoses Essential (primary) hypertension I10 Diabetes type 2, controlled E11.9 Immunization counseling Z71.85 Assessment & Plan Assessment & Plan (1) Essential (primary) hypertension: Code(s): I10 - Essential (primary) hypertension Category: Medical (2) Diabetes type 2, controlled: Code(s): E11.9 - Type 2 diabetes mellitus without complications Category: Medical (3) Immunization counseling: Code(s): Z71.85 - Encounter for immunization safety counseling Category: Medical Plan Blood pressure is controlled on losartan. Goal is less than 140/90 Continue current medication Watch salt and sodium Maintain healthy weight A1c increased from 6.1% to 6.8%. Still controlled. Continue diet control Watch sugars and starches diet Due for PNA-20 and UTD with Tdap though will be due in 2027. L arm Biceps tear and saw Ortho - No surgery indicated. Offered physical therapy but patient says he will slowly build his strength up on his own. Orders: Orders AMB Hemoglobin A1c Today Z13.9 - Encounter for screening, unspecified Comprehensive [place]. Panel Fast Today Z00.00 - Encounter for general adult medical examination without abnormal findings Microalbumin, Random (w Creat) Today I10 - Essential (primary) hypertension TSH reflex Free T4 Today Z00.00 - Encounter for general adult medical examination without abnormal findings UA CC w/rflx Micro + Cult Today Z00.00 - Encounter for general adult medical examination without abnormal findings Vitamin B12 and Folate Today E53.8 - Deficiency of other specified B group vitamins Vitamin D 25-OH Total Today E55.9 - Vitamin D deficiency, unspecified Complete Blood Count Auto Diff Today Z00.00 - Encounter for general adult medical examination without abnormal findings Prostate Specific Antigen Scr Today Z12.5 - Encounter for screening for malignant neoplasm of prostate Lipid Panel Today Z00.00 - Encounter for general adult medical examination without abnormal findings Medications: Changed From pravastatin 20 mg PO DAILY 90 days 90 tabs 0RF To pravastatin 10 mg PO DAILY 90 tabs 0RF 90 days
--- OUTSIDE RECORDS SUMMARY | 2025-09-13 08:37 | XMS_ITS | Encounter Summary ---
Author Organization [employer] Address [address] [place] [address] 7 [place] [address] Care Team Providers Care Bottom Presser Name Role Phone Unavailable Primary Care Provider [...] Description 11/17/2025 10:10 AM EST Office Visit [facility] DENTAL [address] [place] [address] Mickie Panda 04/22/2026 4:00 PM EDT Office Visit [facility] OPTOMETRY [address] [place] [address] Diana Matute OD [address] [place] [address] documented as of this encounter Visit Diagnoses Not on filedocumented in this encounter
--- OUTSIDE RECORDS SUMMARY | 2025-09-13 08:37 | XMS_ITS | Encounter Summary ---
Author Organization [employer] Address [address] [place] [address] 7 [place] [address] Care Team Providers Care Detonator Maker Name Role Phone Unavailable Primary Care Provider [...] AM EST Office Visit [facility] DENTAL [address] [place] [address] Mickie Panda 04/22/2026 4:00 PM EDT Office Visit [facility] OPTOMETRY [address] [place] [address] Diana Matute OD [address] [place] [address] documented as of this encounter Visit Diagnoses Not on filedocumented in this encounter
--- OUTSIDE RECORDS SUMMARY | 2025-09-13 08:37 | XMS_ITS | Encounter Summary ---
Author Organization [employer] Address [address] [place] [address] 7 [place] [address] Care Team Providers Care Food Specialist Name Role Phone Unavailable Primary Care Provider [...] 10:10 AM EST Office Visit [facility] DENTAL [address] [place] [address] Mickie Panda 04/22/2026 4:00 PM EDT Office Visit [facility] OPTOMETRY [address] [place] [address] Diana Matute, ELIJAH [address] [place] [address] documented as of this encounter Visit Diagnoses Not on filedocumented in this encounter
--- OUTSIDE RECORDS SUMMARY | 2025-09-13 08:37 | XMS_ITS | Encounter Summary ---
Author Organization [employer] Address [address] [facility] 7t [place] [address] Care Team Providers Care Assembly And Packing Supervisor Name Role Phone Unavailable Primary Care Provider Unavailabl e Encounter Details Date Type Department Care Team (Late st Contact Info) Description 04/19/2023 Orders Only [facility] OPTOMETRY [address] [place] [address] Diana Matute OD [address] [place] [address] Social History Tobacco Use Types Packs/Day Years [...] Description 11/17/2025 10:10 AM EST Office Visit [facility] DENTAL [address] [place] [address] Mickie Panda 04/22/2026 4:00 PM EDT Office Visit [facility] OPTOMETRY [address] [place] [address] Diana Matute, ELIJAH [address] [place] [address] documented as of this encounter Visit Diagnoses Not on filedocumented in this encounter
--- OUTSIDE RECORDS SUMMARY | 2025-09-13 08:37 | XMS_ITS | Encounter Summary ---
Author Organization [employer] Address [address] [place] [address] 7 [place] [address] Care Team Providers Care Crime Investigator Special Agent Name Role Phone Unavailable Primary Care Provider [...] 11/17/2025 10:10 AM EST Office Visit [facility] DENTAL [address] [place] [address] Mickie Panda 04/22/2026 4:00 PM EDT Office Visit [facility] OPTOMETRY [address] [place] [address] Diana Matute, ELIJAH [address] [place] [address] documented as of this encounter Visit Diagnoses Not on filedocumented in this encounter
--- OUTSIDE RECORDS SUMMARY | 2025-09-13 08:38 | XMS_ITS | Clinical Summary ---
Author Organization [employer] Address [address] [facility] 7t [place] [address] Care Team Providers Care Subsorter Name Role Phone Unavailable Primary Care Provider [...] 07/16/2025 10:10 AM EDT Office Visit [facility] DENTAL [address] [place] [address] Radha Lopez LLD Stage 2 grade B generalized periodontitis per AAP/EFP 2017 classification (Primary Dx) 07/09/2025 Travel 06/17/2025 3:00 PM EDT Office Visit [facility] DENTAL [address] [place] [address] Mickie Panda Encounter for dental examination (Primary [...] Description 11/17/2025 10:10 AM EST Office Visit [facility] DENTAL [address] [place] [address] Mickie Panda 04/22/2026 4:00 PM EDT Office Visit [facility] OPTOMETRY [address] [place] [address] Diana Matute, OD [address] [place] [address] Health Maintenance Due Date Last Done Comments [...] Payer (Ef fective 2023-Present) Name:Nadir Espinoza Member ID:[id number] Relation to Subscriber:Self Name:Nadir Espinoza Subscriber ID:[id number] Payer ID:[facility] Group ID:Not on file Type:Medicare Address: [facility] [address] [address] [facility] [place] [address] [facility] [place] [address] [facility] [place] [id number]
--- OUTSIDE RECORDS SUMMARY | 2025-09-13 08:38 | XMS_ITS | Clinical Summary ---
Author Organization [facility] Address [address] [address] Phone Care Team Providers Care Odd Job Laborer Name Role Phone Unavailable Primary Care Provider [...] file Insurance MEDICARE PART A & B [facility] MEDEX SUPPLEMENT MEDICARE PART A & B [employer] MED[employer] SUPPLEMENT MEDICARE PART A & B [employer] MEDEX SUPPLEMENT MEDICARE PART A & B [employer] MED[employer] SUPPLEMENT MEDICARE PART A & B [employer] MED[employer] SUPPLEMENT MEDICARE PART A & B [employer] MEDEX SUPPLEMENT [place] [address] INSURANCE Additional Source Comments The information contained in this document represents components of the legal health record. It is not the complete legal health record.[facility]
== END 2025-09-13 09:13 | disposition home or self-care (01) ==
LOC: HO.HMCFM 08:24
PROVIDERS: PCP Family Medicine; Visit Provider Family Medicine
DX: I10 Essential (primary) hypertension (principal); E11.9 Type 2 diabetes mellitus without complications; Z71.85 Encounter for immunization safety counseling; Z13.9 Encounter for screening, unspecified

== ENCOUNTER → 2025-09-13 08:23 | Outpatient (BNVA) | payer MEDICARE, SELFPAY | PROVIDERS: PCP Family Medicine; Visit Provider Family Medicine | DX: I10 Essential (primary) hypertension (principal); E11.9 Type 2 diabetes mellitus without complications; Z71.85 Encounter for immunization safety counseling | CPT/HCPCS: 83036; 99212 ==